=== PATIENT | male | born 1950 | race Caucasian/White ===

== ENCOUNTER → 2018-08-02 08:00 | Outpatient (CLI) | payer OTHER, SELFPAY ==
[2018-08-02 09:01] LABS: Add Manual Diff / Slide Review NO; Basophils Percent Auto 0.7 % (0-2); Eosinophils Percent Auto 1.5 % (2-4); Hematocrit 35.1 % (41-53); Hemoglobin 12.5 g/dL (13.5-17.5); Lymphocytes Percent Auto 10.6 % (25-40); Mean Corpuscular HGB Conc 35.6 % (30-36); Mean Corpuscular Hemoglobin 40.1 PG (26-34); Mean Corpuscular Volume 112.6 fL (80-100); Monocytes Percent Auto 5.3 % (3-14); Neutrophils Absolute Auto 4700 /uL (3000-5900); Neutrophils Percent Auto 81.9 % (50-75); Platelet Count 182 X10^3/uL (150-400); Red Blood Cell Count 3.12 X10^6/uL (4.5-5.9); White Blood Cell Count 5.7 X10^3/uL (4.5-11.0)
[2018-08-02 09:16] LABS: Anisocytosis 2+
[2018-08-02 09:22] LABS: Hemoglobin A1C% w Est Avg Glu 6.1 % (4.0-6.0)
[2018-08-02 09:52] LABS: Alanine Aminotransferase 31 IU/L (21-72); Albumin 4.4 g/dL (3.5-5.0); Albumin Globulin Ratio 1.4 (1.0-2.8); Alkaline Phosphatase 66 U/L (38-126); Aspartate Aminotransferase 26 IU/L (17-59); BUN Creatinine Ratio 32.5 (6-22); Bilirubin Total 0.6 mg/dL (0.2-1.3); Blood Urea Nitrogen 39 mg/dL (9-20); Calcium 9.5 mg/dL (8.4-10.2); Carbon Dioxide 32 mmol/L (22-32); Chloride 98 mmol/L (98-107); Cholesterol 154 mg/dL (140-199); Estimated Glomerular Filt Rate > 60.0 mL/min (>60); Globulin 3.2 g/dL (1.7-4.1); Glucose 112 mg/dL (80-110); HDL Cholesterol 31 mg/dL (40-60); HEMOLYSIS < 15 (0-50); LDL Cholesterol Calculated 100 mg/dL (<100); Potassium 3.3 mmol/L (3.4-5.1); Sodium 145 mmol/L (137-145); Total Protein 7.6 g/dL (6.3-8.2); Triglycerides 114 mg/dL (35-150)
[2018-08-02 09:56] LABS: Creatinine Urine Random 95.6 mg/dL
[2018-08-02 10:00] LABS: Microalbumi Creatinin Ratio Ur 167.3 ug/mg CR (<30)
== END ==
PROVIDERS: PCP Internal Medicine; Visit Provider Internal Medicine
DX: M10.00 Idiopathic gout, unspecified site (principal); I10 Essential (primary) hypertension; E11.9 Type 2 diabetes mellitus without complications; E78.00 Pure hypercholesterolemia, unspecified
CPT/HCPCS: 36415; 80053; 80061; 82043; 82570; 83036; 83880; 85025

== ENCOUNTER 2018-10-18 22:17 | Emergency (ER) | payer OTHER, SELFPAY ==
[2018-10-18] VITALS (10 sets, daily range): BP systolic 83–113; BP diastolic 40–74; PULSE 73–78; RESP 13–18; TEMP 36.6; O2SAT 93–96; BMI 30.8
--- NOTE | 2018-10-18 22:21 | ED.GIBLEED ---
HPI - GI Bleed General Chief complaint: GI Bleed Stated complaint: GI BLEED Time Seen by Provider: 10/18/18 22:19 Source: patient Mode of arrival: EMS Limitations: no limitations History of Present Illness HPI Narrative: Patient is a 68-year-old male with a history of rectal cancer status post resection. This was many years ago. He is not currently undergoing chemotherapy. He states that during his last checkup he was cancer free he states that last night he went to go have a bowel movement which he states was relatively normal for him. Potentially was streaked with a little bit of blood. He states that he went back to bed and a little while later he got up because he had to go the bathroom and had an episode of very loose stools which he states was dark and also bright red. He states that a few minutes later he had another large bowel movement that was all bright red. No abdominal tenderness except for some cramping. Denies the use of anti-inflammatories. Denies the use of anticoagulants. Denies alcohol. Related Data Home Medications Medication Instructions Recorded Confirmed allopurinol 150 mg PO DAILY 10/18/18 10/18/18 amlodipine 10 mg PO DAILY 10/18/18 10/18/18 azathioprine 100 mg PO DAILY 10/18/18 10/18/18 carvedilol 25 mg PO BID 10/18/18 10/18/18 cetirizine 10 mg PO DAILY PRN 10/18/18 10/18/18 fluticasone 1 spray INTRANASAL DAILY PRN 10/18/18 10/18/18 furosemide 20 mg PO DAILY PRN 10/18/18 10/18/18 hydrochlorothiazide 25 mg PO DAILY 10/18/18 10/18/18 insulin NPH isoph U-100 human 16 units SUBCUT DAILY 10/18/18 10/18/18 [Humulin N NPH U-100 Insulin] lisinopril 40 mg PO DAILY 10/18/18 10/18/18 potassium chloride [K-Tab] 10 meq PO DAILY 10/18/18 10/18/18 prednisone 10 mg PO DAILY 10/18/18 10/18/18 tamsulosin 0.4 mg PO BID 10/18/18 10/18/18 Allergies Allergy/AdvReac Type Severity Reaction Status Date / Time fluorouracil Allergy Verified 10/19/18 00:08 Review of Systems Constitutional Reports fatigue, Denies fever(s) and Reports lethargy Cardiovascular Denies chest pain, Denies palpitations and Denies dyspnea Respiratory Denies dyspnea Gastrointestinal Gastrointestinal: Denies abdominal pain, Denies bloating, Reports change in stool character, Denies coffee ground emesis, Reports loose stools, Denies nausea and Denies vomiting Comments: Bright red blood per rectum Genitourinary Denies dysuria Musculoskeletal Denies myalgias and Denies arthralgias Integumentary/Breasts Denies rash Endocrine Reports fatigue and Denies palpitations Hematologic/Lymphatic Denies easy bleeding and Denies easy bruising PFSH Medical History Celiac disease (Acute) Congestive heart failure (Acute) Diabetes (Acute) Rectal cancer (Acute) Surgical History H/O colectomy (Acute) Social History lives independently: Yes Exam Initial Vital Signs Initial Vital Signs: Vital Signs Temperature 97.8 F 10/18/18 22:26 Pulse Rate 77 10/18/18 22:26 Respiratory Rate 16 10/18/18 22:26 Blood Pressure 113/74 10/18/18 22:26 Pulse Oximetry 96 10/18/18 22:26 Const General: cooperative, well developed, well groomed and No acute distress Orientation: alert, awake and oriented x3 HENMT Head: normal to inspection and normocephalic Resp Effort & Inspection: normal respiratory effort Auscultation: clear to auscultation bilaterally Cardio Rate: regular rate Rhythm: regular rhythm Pulses: radial pulses present GI Inspection: non-distended Palpation: soft, No firm and No tender Skin General: pallor Rashes: no rashes Other: Patient with for stages of a Mohs surgery to the top of his scalp Neuro General: alert, awake and oriented x3 Cognition: normal cognition Speech: speech normal Extrem General: normal to inspection and capillary refill normal Psych Appearance: grossly normal and well kempt Course Orders Ordered: ED Orders 10/18/18 22:00 Complete Blood Count AUTO DIFF Stat Comprehensive Metabolic Panel Stat Lipase Stat Packed Cells Stat Partial Thromboplastin Time Stat Prothrombin Time INR Stat Type and Screen Stat 10/18/18 22:34 CT abdomen pelvis w con Stat 10/18/18 23:47 Hemoglobin and Hematocrit Stat 10/19/18 01:30 Hemoglobin and Hematocrit Stat Lactate (Lactic Acid) Stat Sodium Chloride (Normal Saline 0.9%) 1,000 mls @ 125 mls/hr IV CONT PATO Last Infusion: 10/19/18 00:49 Dose: 125 mls/hr Infusion: 10/19/18 00:38 Dose: 0 mls/hr Admin: 10/18/18 23:08 Dose: 125 mls/hr Pantoprazole Sodium 80 mg/ (Sodium Chloride) 100 mls @ 10 mls/hr IV CONT PATO Last Infusion: 10/19/18 00:49 Dose: 8 mg/hr, 10 mls/hr Infusion: 10/19/18 00:38 Dose: 0 mg/hr, 0 mls/hr Admin: 10/18/18 23:26 Dose: 8 mg/hr, 10 mls/hr Discontinued Medications Pantoprazole Sodium 80 mg/ (Sodium Chloride) 100 mls @ 300 mls/hr IV NOW ONE Stop: 10/18/18 22:53 Last Infusion: 10/18/18 23:05 Dose: 0 mls/hr Admin: 10/18/18 23:00 Dose: 300 mls/hr Ondansetron HCl (Zofran) 4 mg IV NOW ONE Stop: 10/18/18 23:12 Last Admin: 10/18/18 23:11 Dose: 4 mg Ondansetron HCl (Zofran) 4 mg IV NOW ONE Stop: 10/19/18 02:14 Last Admin: 10/19/18 02:15 Dose: 4 mg Vital Signs - 8 hr 10/18/18 22:26 10/18/18 22:40 10/18/18 22:50 Temperature 97.8 F Pulse Rate 77 78 77 Respiratory Rate 16 16 16 Blood Pressure 113/74 Blood Pressure [Right Arm] 98/51 L 102/56 L Pulse Oximetry 96 96 94 10/18/18 23:00 10/18/18 23:20 10/18/18 23:30 Temperature Pulse Rate 75 75 74 Respiratory Rate 17 17 17 Blood Pressure Blood Pressure [Right Arm] 101/52 L 91/45 L 83/55 L Pulse Oximetry 93 94 93 10/18/18 23:32 10/18/18 23:36 10/18/18 23:40 Temperature Pulse Rate 73 75 73 Respiratory Rate 18 13 16 Blood Pressure Blood Pressure [Right Arm] 96/53 L 99/51 L 94/53 L Pulse Oximetry 96 96 96 10/18/18 23:51 10/19/18 00:00 10/19/18 00:05 Temperature 97.9 F Pulse Rate 75 72 73 Respiratory Rate 18 15 15 Blood Pressure 85/40 L Blood Pressure [Right Arm] 108/56 L 109/53 L Pulse Oximetry 96 96 10/19/18 00:09 10/19/18 00:10 10/19/18 00:15 Temperature 97.8 F Pulse Rate 70 71 72 Respiratory Rate 18 15 17 Blood Pressure 107/54 L Blood Pressure [Right Arm] 109/55 L 109/55 L Pulse Oximetry 96 99 10/19/18 00:20 10/19/18 00:25 10/19/18 00:30 Temperature Pulse Rate 72 69 69 Respiratory Rate 15 16 15 Blood Pressure Blood Pressure [Right Arm] 109/55 L 106/56 L 115/57 L Pulse Oximetry 97 97 97 10/19/18 00:50 10/19/18 01:00 10/19/18 01:10 Temperature Pulse Rate 73 73 71 Respiratory Rate 15 15 15 Blood Pressure Blood Pressure [Right Arm] 130/51 L 125/60 133/60 Pulse Oximetry 97 97 97 10/19/18 01:11 10/19/18 01:12 10/19/18 01:40 Temperature Pulse Rate 72 80 72 Respiratory Rate 15 13 Blood Pressure Blood Pressure [Right Arm] 133/60 133/60 113/61 Pulse Oximetry 98 96 94 10/19/18 02:00 10/19/18 02:20 Temperature Pulse Rate 73 67 Respiratory Rate Blood Pressure Blood Pressure [Right Arm] 118/60 123/64 Pulse Oximetry 94 92 MDM - GI Bleed Lab Data Attestation: I reviewed the patient's lab results. Result diagrams: 10/19/18 01:30 10/18/18 22:00 Lab Results 10/18/18 10/18/18 10/18/18 Range/Units 22:00 22:00 22:00 WBC 8.0 (4.5-11.0) X10^3/uL RBC 2.81 L (4.5-5.9) X10^6/uL Hgb 11.5 L (13.5-17.5) g/dL Hct 33.1 L (41-53) % MCV 117.8 H (80-100) fL MCH 40.9 H (26-34) PG MCHC 34.8 (30-36) % RDW 15.2 H (11.6-14.8) % Plt Count 188 (150-400) X10^3/uL Neut % (Auto) 77.0 H (50-75) % Lymph % (Auto) 16.0 L (25-40) % Larue % (Auto) 5.3 (3-14) % Eos % (Auto) 0.9 L (2-4) % Baso % (Auto) 0.8 (0-2) % Neut # (Auto) 6200 (4240-7099) /uL Lymph # (Auto) 1300 (3413-1699) /uL Larue # (Auto) 400 (0-900) /uL Eos # (Auto) 100 (0-450) /uL Baso # (Auto) 100 (0-100) /uL RBC Morphology See below Anisocytosis 1+ H Macrocytosis 2+ H PT 12.4 (10.1-12.7) SECONDS INR 1.1 (0.9-1.3) APTT 26 L (26.4-36.2) SECONDS Sodium 143 (137-145) mmol/L Potassium 3.4 (3.4-5.1) mmol/L Chloride 100 (98-107) mmol/L Carbon Dioxide 28 (22-32) mmol/L BUN 37 H (9-20) mg/dL Creatinine 1.80 H (0.66-1.25) mg/dL Estimated GFR 37.7 L (>60) mL/min BUN/Creatinine Ratio 20.6 (6-22) Glucose 139 H (80-110) mg/dL Lactate (0.7-2.1) mmol/L Calcium 9.1 (8.4-10.2) mg/dL Total Bilirubin 0.5 (0.2-1.3) mg/dL AST 26 (17-59) IU/L ALT 26 (21-72) IU/L Alkaline Phosphatase 60 (38-126) U/L Total Protein 7.4 (6.3-8.2) g/dL Albumin 4.1 (3.5-5.0) g/dL Globulin 3.3 (1.7-4.1) g/dL Albumin/Globulin Ratio 1.2 (1.0-2.8) Lipase 93 (23-300) U/L Blood Type Antibody Screen Crossmatch 10/18/18 10/18/18 10/19/18 Range/Units 22:00 23:47 01:30 WBC (4.5-11.0) X10^3/uL RBC (4.5-5.9) X10^6/uL Hgb 9.6 L 9.8 L (13.5-17.5) g/dL Hct 27.8 L 27.7 L (41-53) % MCV (80-100) fL MCH (26-34) PG MCHC (30-36) % RDW (11.6-14.8) % Plt Count (150-400) X10^3/uL Neut % (Auto) (50-75) % Lymph % (Auto) (25-40) % Larue % (Auto) (3-14) % Eos % (Auto) (2-4) % Baso % (Auto) (0-2) % Neut # (Auto) (7669-8585) /uL Lymph # (Auto) (7974-3388) /uL Larue # (Auto) (0-900) /uL Eos # (Auto) (0-450) /uL Baso # (Auto) (0-100) /uL RBC Morphology Anisocytosis Macrocytosis PT (10.1-12.7) SECONDS INR (0.9-1.3) APTT (26.4-36.2) SECONDS Sodium (137-145) mmol/L Potassium (3.4-5.1) mmol/L Chloride (98-107) mmol/L Carbon Dioxide (22-32) mmol/L BUN (9-20) mg/dL Creatinine (0.66-1.25) mg/dL Estimated GFR (>60) mL/min BUN/Creatinine Ratio (6-22) Glucose (80-110) mg/dL Lactate (0.7-2.1) mmol/L Calcium (8.4-10.2) mg/dL Total Bilirubin (0.2-1.3) mg/dL AST (17-59) IU/L ALT (21-72) IU/L Alkaline Phosphatase (38-126) U/L Total Protein (6.3-8.2) g/dL Albumin (3.5-5.0) g/dL Globulin (1.7-4.1) g/dL Albumin/Globulin Ratio (1.0-2.8) Lipase (23-300) U/L Blood Type O Positive Antibody Screen Negative Crossmatch See Detail 10/19/18 Range/Units 01:30 WBC (4.5-11.0) X10^3/uL RBC (4.5-5.9) X10^6/uL Hgb (13.5-17.5) g/dL Hct (41-53) % MCV (80-100) fL MCH (26-34) PG MCHC (30-36) % RDW (11.6-14.8) % Plt Count (150-400) X10^3/uL Neut % (Auto) (50-75) % Lymph % (Auto) (25-40) % Larue % (Auto) (3-14) % Eos % (Auto) (2-4) % Baso % (Auto) (0-2) % Neut # (Auto) (6856-2218) /uL Lymph # (Auto) (2583-2147) /uL Larue # (Auto) (0-900) /uL Eos # (Auto) (0-450) /uL Baso # (Auto) (0-100) /uL RBC Morphology Anisocytosis Macrocytosis PT (10.1-12.7) SECONDS INR (0.9-1.3) APTT (26.4-36.2) SECONDS Sodium (137-145) mmol/L Potassium (3.4-5.1) mmol/L Chloride (98-107) mmol/L Carbon Dioxide (22-32) mmol/L BUN (9-20) mg/dL Creatinine (0.66-1.25) mg/dL Estimated GFR (>60) mL/min BUN/Creatinine Ratio (6-22) Glucose (80-110) mg/dL Lactate 1.7 (0.7-2.1) mmol/L Calcium (8.4-10.2) mg/dL Total Bilirubin (0.2-1.3) mg/dL AST (17-59) IU/L ALT (21-72) IU/L Alkaline Phosphatase (38-126) U/L Total Protein (6.3-8.2) g/dL Albumin (3.5-5.0) g/dL Globulin (1.7-4.1) g/dL Albumin/Globulin Ratio (1.0-2.8) Lipase (23-300) U/L Blood Type Antibody Screen Crossmatch Imaging Data CT scan - abdomen: Radiologist's impression: 1 cm cystic density in the proximal body of the pancreas axial image 35, 4 mm cystic density in the head of the pancreas axial image 38. Differential includes small pancreatic pseudocyst versus pancreatic duct diverticulum but cystic neoplasm is not excluded. No pancreatic duct dilation. No surrounding inflammation. Mild diffuse wall thickening of urinary bladder could be due to a small Sizer work hypertrophy secondary to mild prostatic enlargement a cystitis or tumor also in the differential. These compare with urinalysis. Mild collapse worse is mild wall thickening proximal half of the transverse colon. No surrounding inflammation. Differential is collapsed 1st colitis. Mild wall thickening small bowel in the left abdomen which can be seen with enteritis for ischemia. No peripheral portal venous or mesenteric venous gas. Normal mesenteric arteries. Prior small-bowel surgery of distal ileum. Moderate gastric distention with large air-fluid level MDM Narrative Medical decision making narrative: Is reported by EMS that they are initial blood pressure had a systolic in the 70s. They started an IV and fluids. Upon arrival here patient had a systolic blood pressure greater than 110. He stated that he did not feel very well. I did not perform a rectal exam because he had obvious bright red blood. We did discuss the possibility of blood transfusions. He has had significant abdominal surgeries in the past secondary to his rectal cancer. While waiting for him to drink the contrast for his CT scan he became hypotensive initially with a systolic blood pressure in the mid 90s with subsequent systolic blood pressure in the 80s. He was laid flat which brought his blood pressure greater than 110 again. He also states that he was not feeling well. 1 units of typed and crossmatched PRBCs were started. Repeat H&H shows that his hemoglobin hematocrit has dropped since arrival here to the ER. He has not had a bowel movement up to this point in the emergency department. H&H remained stable after just the 1 unit. I discussed the case with Dr. Amin with General surgery here who states that if the patient was that unstable needed blood transfusion he would most likely benefit from a facility that has GI capability of potential interventional radiology. We contacted [facility] and I discussed the case with Dr Narayan. He recommended starting the 2nd unit of blood. He found an accepting physician of Dr. Farley at [facility]. Currently patient is stable for transport and does require higher level care. I discussed the transfer with the patient and his her bedside and they both expressed understanding and agreement plan. Critical Care Time Critical Care Time: Yes Total Critical Care Time: 35 Attestation: The high probability of a clinically significant, sudden or life threatening deterioration of the hemodynamic, GI system(s) required my full and direct attention, intervention and personal management. The aggregate critical care time was 35 minutes. This time is in addition to time spent performing reported procedures but includes the following: [] Data Review and interpretation [] Patient assessment and monitoring of vital signs [] Documentation [] Medication orders and management Discharge Plan Departure Patient Disposition: [facility] Clinical Impression: Lower gastrointestinal hemorrhage, Anemia Prescriptions: No Action carvedilol 25 mg Tablet 25 mg PO BID RF: 0 prednisone 10 mg Tablet 10 mg PO DAILY RF: 0 cetirizine 10 mg Tablet 10 mg PO DAILY PRN (Reason: Allergy Symptoms) RF: 0 lisinopril 20 mg Tablet 40 mg PO DAILY RF: 0 potassium chloride [K-Tab] 10 mEq Tablet Extended Release 10 meq PO DAILY RF: 0 amlodipine 5 mg Tablet 10 mg PO DAILY RF: 0 allopurinol 100 mg Tablet 150 mg PO DAILY RF: 0 tamsulosin 0.4 mg Capsule 0.4 mg PO BID RF: 0 insulin NPH isoph U-100 human [Humulin N NPH U-100 Insulin] 100 unit/mL Suspension 16 units subcut DAILY RF: 0 hydrochlorothiazide 25 mg Tablet 25 mg PO DAILY RF: 0 furosemide 20 mg Tablet 20 mg PO DAILY PRN (Reason: Weight above 244#) RF: 0 fluticasone 50 mcg/actuation [place],Suspension 1 spray INTRANASAL DAILY PRN (Reason: Allergy Symptoms) RF: 0 azathioprine 100 mg Tablet 100 mg PO DAILY RF: 0
--- NOTE | 2018-10-18 22:34 | DI.CT.S_ITS ---
PROCEDURE: CT ABDOMEN PELVIS W CON INDICATIONS: Gastrointestinal bleed TECHNIQUE: After the administration of oral and intravenous contrast, 5 mm thick sections acquired from the diaphragms to the symphysis. 5 mm thick coronal and sagittal reformats were performed. For radiation dose reduction, the following was used: automated exposure control, adjustment of mA and/or kV according to patient size. COMPARISON: None. FINDINGS: Image quality: Excellent. ABDOMEN: Lung bases: No acute consolidation. Scattered subsegmental atelectasis and/or scarring. Heart is mildly enlarged. Distal esophageal wall thickening, nonspecific possibly infectious or inflammatory esophagitis versus statistically less likely neoplasm. Further evaluation with endoscopy could be performed as clinically warranted. Solid organs: Liver is normal in size and enhancement. Gallbladder surgically absent. Biliary system is non-dilated. 1 cm cystic lesion involving the body of the pancreas with simple appearance although technically nonspecific. No peripancreatic fat stranding. Spleen is normal in size and enhancement. No adrenal nodules. Kidneys are normal in size and enhancement, without hydronephrosis. Bilateral presumed simple cysts although some of these are too small to characterize and some demonstrate slight increased attenuation greater than water (for example at the inferior pole of the right kidney). Continued monitoring with renal ultrasound could be performed as clinically warranted. Peritoneum and bowel: There is questionable left abdominal small bowel wall thickening although limited evaluation given decompressed status. There is also questionable circumferential wall thickening involving the transverse colon (for example image 49 series 2) although this segment of bowel is also collapsed. Nonetheless findings could reflect early or mild enterocolitis. No evidence of portal venous or mesenteric venous gas. The mesenteric vessels appear contrast opacified and grossly patent. No intestinal pneumatosis is seen. Surgical bowel anastomosis at the rectosigmoid junction. No free fluid or air. The appendix is within normal limits Nodes and vessels: No retroperitoneal or mesenteric adenopathy by size criteria are prominent shotty subcentimeter lymph nodes seen at the aortic bifurcation on image 69. Aorta and inferior vena cava are normal in caliber. Miscellaneous: No ventral hernias. PELVIS: Genitourinary: Circumferential bladder wall thickening which is technically indeterminate. Miscellaneous: No inguinal hernias or adenopathy. Bones: No suspicious bony lesions. No vertebral body compression fractures. IMPRESSION: Questionable/mild left abdominal small bowel, and transverse colonic wall thickening raising the possibility of early or mild enterocolitis. Please correlate clinically. No bowel obstruction. 1 cm cystic lesion involving body of pancreas, differential includes pseudocyst versus diverticulum, versus cystic neoplasm. Given the absence of prior studies this finding is technically age indeterminate and recommend followup in 2 years with pancreatic protocol MRI with and without contrast, per consensus management guidelines. Age-indeterminate circumferential bladder wall thickening which could reflect acute or chronic cystitis, versus statistically less likely neoplasm. Please correlate with urinalysis data and if necessary, cystoscopy could be considered. Multiple presumed renal cysts although some of these are technically indeterminate and minimally hyperdense. Continued monitoring with renal ultrasound could be performed to document long-term stability. Dictated by: Joe Harmon M.D. on 10/19/2018 at 7:22 Approved by: Joe Harmon M.D. on 10/19/2018 at 7:36
[2018-10-18 22:35] LABS: Add Manual Diff / Slide Review NO; Basophils Absolute Auto 100 /uL (0-100); Basophils Percent Auto 0.8 % (0-2); Eosinophils Absolute Auto 100 /uL (0-450); Eosinophils Percent Auto 0.9 % (2-4); Hematocrit 33.1 % (41-53); Hemoglobin 11.5 g/dL (13.5-17.5); Lymphocytes Absolute Auto 1300 /uL (1100-4500); Mean Corpuscular HGB Conc 34.8 % (30-36); Mean Corpuscular Hemoglobin 40.9 PG (26-34); Mean Corpuscular Volume 117.8 fL (80-100); Monocytes Absolute Auto 400 /uL (0-900); Monocytes Percent Auto 5.3 % (3-14); Neutrophils Absolute Auto 6200 /uL (1500-7000); Platelet Count 188 X10^3/uL (150-400); Red Blood Cell Count 2.81 X10^6/uL (4.5-5.9); Red Cell Distribution Width 15.2 % (11.6-14.8)
[2018-10-18 22:42] LABS: INR 1.1 (0.9-1.3); Prothrombin Time 12.4 SECONDS (10.1-12.7)
[2018-10-18 22:44] LABS: PTT Partial Thromboplastin Tim 26 SECONDS (26.4-36.2)
[2018-10-18 22:45] LABS: Blood Urea Nitrogen 37 mg/dL (9-20); Carbon Dioxide 28 mmol/L (22-32); Chloride 100 mmol/L (98-107); Potassium 3.4 mmol/L (3.4-5.1); Sodium 143 mmol/L (137-145)
[2018-10-18 22:46] LABS: Alanine Aminotransferase 26 IU/L (21-72); Albumin 4.1 g/dL (3.5-5.0); Albumin Globulin Ratio 1.2 (1.0-2.8); Alkaline Phosphatase 60 U/L (38-126); Aspartate Aminotransferase 26 IU/L (17-59); BUN Creatinine Ratio 20.6 (6-22); Bilirubin Total 0.5 mg/dL (0.2-1.3); Calcium 9.1 mg/dL (8.4-10.2); Estimated Glomerular Filt Rate 37.7 mL/min (>60); Globulin 3.3 g/dL (1.7-4.1); Glucose 139 mg/dL (80-110); HEMOLYSIS < 15 (0-50); Lipase 93 U/L (23-300); Total Protein 7.4 g/dL (6.3-8.2)
[2018-10-18 22:52] LABS: Macrocytosis 2+
[2018-10-18 22:53] LABS: Anisocytosis 1+
[2018-10-18] MEDS: PANTOPRAZOLE 80 MG in SODIUM CHLORIDE 0.9% 100 ML 300 ML IV (23:00)
[2018-10-18] MEDS: SODIUM CHLORIDE 0.9% 1,000 ML 125 ML IV (23:08)
[2018-10-18] MEDS: ONDANSETRON 4 MG/2 ML INJ IV (23:11)
[2018-10-18] MEDS: PANTOPRAZOLE 80 MG in SODIUM CHLORIDE 0.9% 100 ML 10 ML IV (23:26)
[2018-10-18 23:56] LABS: Hematocrit 27.8 % (41-53); Hemoglobin 9.6 g/dL (13.5-17.5)
[2018-10-19] VITALS (20 sets, daily range): BP systolic 106–133; BP diastolic 40–64; PULSE 65–80; RESP 12–18; TEMP 36.5–36.6; O2SAT 92–99
[2018-10-19 01:43] LABS: Hematocrit 27.7 % (41-53); Hemoglobin 9.8 g/dL (13.5-17.5)
[2018-10-19 01:49] LABS: Lactate (Lactic Acid) 1.7 mmol/L (0.7-2.1)
[2018-10-19] MEDS: ONDANSETRON 4 MG/2 ML INJ IV (02:15)
--- NOTE | 2018-10-19 03:53 | PC.NURSE ---
patient transported with blood transfusing. provider okayed.
== END 2018-10-19 03:50 | disposition short-term general hospital (02) ==
PROVIDERS: Emergency Provider Emergency Medicine; PCP Internal Medicine
DX: K92.2 Gastrointestinal hemorrhage, unspecified (principal); D64.9 Anemia, unspecified
CPT/HCPCS: 36415; 36430; 51701; 51705; 74177; 80053; 83605; 83690; 85014; 85018; 85025; 85610; 85730; 86850; 86900; 86901; 96365; 96366; 96375; 96376; 99285; 99291; 99292; P9016; C9113; J2405; Q9967

== ENCOUNTER → 2018-11-22 11:08 | Outpatient (CLI) | payer OTHER, SELFPAY ==
[2018-11-22 11:51] LABS: Hemoglobin A1C% w Est Avg Glu 5.7 % (4.0-6.0)
[2018-11-22 11:54] LABS: HEMOLYSIS < 15 (0-50); Iron 50 ug/dL (49-181)
[2018-11-22 11:55] LABS: BUN Creatinine Ratio 20.8 (6-22); Blood Urea Nitrogen 27 mg/dL (9-20); Calcium 9.2 mg/dL (8.4-10.2); Carbon Dioxide 31 mmol/L (22-32); Chloride 98 mmol/L (98-107); Estimated Glomerular Filt Rate 54.9 mL/min (>60); Glucose 217 mg/dL (80-110); HEMOLYSIS < 15 (0-50); Potassium 3.8 mmol/L (3.4-5.1); Sodium 140 mmol/L (137-145)
[2018-11-22 12:06] LABS: Percent Iron Saturation 17 % (20-50); Total Iron Binding Capacity 296 ug/dL (261-462); Transferrin 208 mg/dL (206-381)
[2018-11-22 12:18] LABS: Add Manual Diff / Slide Review NO; Basophils Absolute Auto 0 /uL (0-100); Basophils Percent Auto 0.2 % (0-2); Eosinophils Absolute Auto 0 /uL (0-450); Eosinophils Percent Auto 0.4 % (2-4); Hematocrit 33.3 % (41-53); Hemoglobin 11.4 g/dL (13.5-17.5); Lymphocytes Absolute Auto 300 /uL (1100-4500); Lymphocytes Percent Auto 5.1 % (25-40); Mean Corpuscular HGB Conc 34.3 % (30-36); Mean Corpuscular Hemoglobin 39.1 PG (26-34); Mean Corpuscular Volume 113.9 fL (80-100); Monocytes Absolute Auto 200 /uL (0-900); Monocytes Percent Auto 4.6 % (3-14); Neutrophils Absolute Auto 4500 /uL (1500-7000); Neutrophils Percent Auto 89.7 % (50-75); Platelet Count 248 X10^3/uL (150-400); Red Blood Cell Count 2.93 X10^6/uL (4.5-5.9); Red Cell Distribution Width 18.2 % (11.6-14.8)
[2018-11-22 12:44] LABS: Vitamin B12 704 pg/mL (239-931)
[2018-11-22 13:06] LABS: Anisocytosis 1+; Macrocytosis 2+
== END ==
PROVIDERS: PCP Internal Medicine; Visit Provider Internal Medicine
DX: D64.9 Anemia, unspecified (principal); E11.9 Type 2 diabetes mellitus without complications
CPT/HCPCS: 36415; 80048; 82607; 83036; 83540; 83550; 85025

== ENCOUNTER 2018-11-24 05:58 | Emergency (ER) | payer OTHER, SELFPAY ==
[2018-11-24 06:00] VITALS: BP 174/71; PULSE 78; RESP 18; TEMP 37.2; O2SAT 96
--- NOTE | 2018-11-24 06:19 | DI.RAD.S_ITS ---
PROCEDURE: XR ACUTE ABDOMEN SERIES INDICATIONS: Abdominal pain TECHNIQUE: One view chest and two views of the abdomen were acquired. COMPARISON: None. FINDINGS: Surgical changes and devices: There is a cardiac pacemaker. Surgical clips in the right upper quadrant and midabdomen. Chest: Lungs are clear. Heart size is normal. No pleural effusions. No pneumoperitoneum. Abdomen: Bowel gas pattern is normal. No suspicious calcifications. Visualized solid organ contours appear normal. Bones: No suspicious bony lesions. IMPRESSION: Normal bowel gas pattern. Dictated by: Alirio Adams M.D. on 11/24/2018 at 8:20 Approved by: Alirio Adams M.D. on 11/24/2018 at 8:23
[2018-11-24] MEDS: PANTOPRAZOLE 40 MG VIAL IV (06:21)
[2018-11-24] MEDS: SODIUM CHLORIDE 0.9% 1,000 ML 1000 ML IV (06:21)
--- NOTE | 2018-11-24 06:22 | ED.NAVMDI ---
HPI - Nausea/Vomiting/Diarrhea <Dwayne Cheng, DO - Last Filed: 11/25/18 21:04> General Chief complaint: Nausea/Vomiting/Diarrhea Stated complaint: nausea/vomiting, possible flu Time Seen by Provider: 11/24/18 06:00 Source: patient, family and EMS Mode of arrival: EMS Limitations: no limitations History of Present Illness HPI Narrative: 68-year-old male nonsmoker with extensive medical history including rectal cancer and diabetes presents with significant nausea. He had significant episode of nausea yesterday morning which resolved after 45 min nap. He went throughout the course of the day and felt completely fine. This morning he awoke again with terrible nausea and multiple episodes of vomiting. He is not dizzy nor weak or lightheaded. He denies fever or chills. He has had no runny nose, sore throat or cough. He denies any bad food or contact with ill persons. He denies any change in his bowel or urinary habits. He denies any recent dietary change. He was brought by EMS and had been administered Zofran 8 mg p.o. prior to his arrival MD complaint: nausea and vomiting Onset (ago): hour(s) Description of Vomiting: food contents and watery Description of Diarrhea: none Associated Abdominal Pain: No Relieving factors: none Exacerbating factors: none Associated symptoms: weakness Related Data Home Medications Medication Instructions Recorded Confirmed allopurinol 150 mg PO DAILY 10/18/18 11/24/18 amlodipine 10 mg PO DAILY 10/18/18 11/24/18 carvedilol 25 mg PO BID 10/18/18 11/24/18 cetirizine 10 mg PO DAILY PRN 10/18/18 11/24/18 fluticasone 1 spray INTRANASAL DAILY PRN 10/18/18 11/24/18 furosemide 20 mg PO DAILY PRN 10/18/18 11/24/18 hydrochlorothiazide 25 mg PO DAILY 10/18/18 11/24/18 insulin NPH isoph U-100 human 16 units SUBCUT DAILY 10/18/18 11/24/18 [Humulin N NPH U-100 Insulin] lisinopril 40 mg PO DAILY 10/18/18 11/24/18 potassium chloride [K-Tab] 20 meq PO DAILY 10/18/18 11/24/18 prednisone 10 mg PO [id number] 10/18/18 11/24/18 tamsulosin 0.4 mg PO BID 10/18/18 11/24/18 azathioprine 100 mg PO DAILY 11/24/18 11/24/18 cyanocobalamin (vitamin B-12) 1,000 mcg PO DAILY 11/24/18 11/24/18 [Vitamin B-12] ferrous gluconate 324 mg PO DAILY 11/24/18 11/24/18 magnesium oxide 400 mg PO BID 11/24/18 11/24/18 Previous Rx's Medication Instructions Recorded hydrocodone-acetaminophen [[place]] 1 tab PO Q4-6H PRN #7 tab 11/24/18 metoclopramide HCl [Reglan] 10 mg PO Q6H PRN #10 tab 11/24/18 Allergies Allergy/AdvReac Type Severity Reaction Status Date / Time fluorouracil Allergy Verified 10/19/18 00:08 Review of Systems <Dwayne Anand DO - Last Filed: 11/25/18 21:04> Constitutional Reports chills, Denies fever(s), Denies lethargy and Reports weakness Eyes Denies change in vision, Denies eye discharge, Denies irritation and Denies loss of vision ENT Ears, Nose, Mouth, and Throat: Denies change in voice, Denies neck pain and Denies sore throat Cardiovascular Denies chest pain, Denies irregular heart rhythm, Denies lightheadedness, Denies palpitations, Denies dyspnea, Denies dyspnea on exertion and Denies orthopnea Respiratory Denies cough, Denies dyspnea, Denies dyspnea on exertion and Denies wheezing Gastrointestinal Gastrointestinal: Denies abdominal pain, Denies change in bowel habits, Denies diarrhea, Reports nausea and Reports vomiting Genitourinary Denies hematuria, Denies flank pain, Denies urinary incontinence and Denies urinary urgency Musculoskeletal Denies neck pain Integumentary/Breasts Denies pruritus, Denies erythema, Denies rash and Denies wounds Neurologic Denies confusion, Denies loss of vision and Reports weakness Psychiatric Denies anxiety, Denies confusion, Denies depression, Denies homicidal ideation and Denies suicidal ideation Endocrine Denies palpitations Hematologic/Lymphatic Denies easy bruising Allergic/Immunologic Denies wheezing PFSH <DO Tammi Aly Last Filed: 11/25/18 21:04> Medical History Celiac disease (Acute) Congestive heart failure (Acute) Diabetes (Acute) Rectal cancer (Acute) Surgical History H/O colectomy (Acute) Social History lives independently: Yes Social History lives independently: Yes Exam <Dwayne Anand DO - Last Filed: 11/25/18 21:04> Narrative Exam Narrative: GENERAL: 68-year-old male appears stated age, holding an emesis basin obviously feels unwell HEAD: Atraumatic. Normocephalic. No temporal or scalp tenderness. EYES: Pupils equal round and reactive. Extraocular motions intact. No scleral icterus. No injection or drainage. ENT: Nose without bleeding, purulent drainage or septal hematoma. Throat without erythema, tonsillar hypertrophy or exudate. Uvula midline. Airway patent. NECK: Trachea midline. No JVD or lymphadenopathy. Supple, nontender, no meningeal signs. CARDIOVASCULAR: Regular rate and rhythm without murmurs, gallops, or rubs. RESPIRATORY: Clear to auscultation. Breath sounds equal bilaterally. No wheezes, rales, or rhonchi. GASTROINTESTINAL: Abdomen soft, non-tender, nondistended. No hepato-splenomegaly, or palpable masses. No guarding. EXTREMITIES: No clubbing, cyanosis, or edema. No joint tenderness, effusion, or edema noted. BACK: Nontender without deformity or crepitance. No flank tenderness. NEURO: AOx3. SKIN: No rash or erythema. Initial Vital Signs Initial Vital Signs: Vital Signs Temperature 98.9 F 11/24/18 06:00 Pulse Rate 78 11/24/18 06:00 Respiratory Rate 18 11/24/18 06:00 Blood Pressure 174/71 H 11/24/18 06:00 Pulse Oximetry 96 11/24/18 06:00 <Richy Casillas DO - Last Filed: 11/24/18 13:08> Initial Vital Signs Initial Vital Signs: Vital Signs Temperature 98.9 F 11/24/18 06:00 Pulse Rate 78 11/24/18 06:00 Respiratory Rate 18 11/24/18 06:00 Blood Pressure 174/71 H 11/24/18 06:00 Pulse Oximetry 96 11/24/18 06:00 Course <Dwayne Anand DO - Last Filed: 11/25/18 21:04> Orders Ordered: Discontinued Medications Hydrocodone Bitart/Acetaminophen ([place] 5/325) 1 tab PO NOW ONE Stop: 11/24/18 09:50 Last Admin: 11/24/18 10:24 Dose: 1 tab Sodium Chloride (Normal Saline 0.9%) 1,000 mls @ 1,000 mls/hr IV BOLUS ONE Stop: 11/24/18 07:17 Last Infusion: 11/24/18 09:43 Dose: 0 mls/hr Admin: 11/24/18 06:21 Dose: 1,000 mls/hr Metoclopramide HCl (Reglan) 10 mg IV NOW ONE Stop: 11/24/18 07:35 Last Admin: 11/24/18 07:40 Dose: 10 mg Pantoprazole Sodium (Protonix) 40 mg IV NOW ONE Stop: 11/24/18 06:19 Last Admin: 11/24/18 06:21 Dose: 40 mg Vital Signs - 8 hr 11/24/18 06:00 11/24/18 07:56 11/24/18 09:30 Temperature 98.9 F Pulse Rate 78 79 76 Respiratory Rate 18 12 19 Blood Pressure 174/71 H Blood Pressure [Left Arm] 152/61 H 170/69 H Pulse Oximetry 96 96 95 11/24/18 10:30 11/24/18 11:46 Temperature 98.4 F Pulse Rate 74 76 Respiratory Rate 19 Blood Pressure 173/77 H Blood Pressure [Left Arm] 176/85 H Pulse Oximetry 94 96 <Richy Casillas DO - Last Filed: 11/24/18 13:08> Orders Ordered: Discontinued Medications Hydrocodone Bitart/Acetaminophen ([place] 5/325) 1 tab PO NOW ONE Stop: 11/24/18 09:50 Last Admin: 11/24/18 10:24 Dose: 1 tab Sodium Chloride (Normal Saline 0.9%) 1,000 mls @ 1,000 mls/hr IV BOLUS ONE Stop: 11/24/18 07:17 Last Infusion: 11/24/18 09:43 Dose: 0 mls/hr Admin: 11/24/18 06:21 Dose: 1,000 mls/hr Metoclopramide HCl (Reglan) 10 mg IV NOW ONE Stop: 11/24/18 07:35 Last Admin: 11/24/18 07:40 Dose: 10 mg Pantoprazole Sodium (Protonix) 40 mg IV NOW ONE Stop: 11/24/18 06:19 Last Admin: 11/24/18 06:21 Dose: 40 mg Vital Signs - 8 hr 11/24/18 06:00 11/24/18 07:56 11/24/18 09:30 Temperature 98.9 F Pulse Rate 78 79 76 Respiratory Rate 18 12 19 Blood Pressure 174/71 H Blood Pressure [Left Arm] 152/61 H 170/69 H Pulse Oximetry 96 96 95 11/24/18 10:30 11/24/18 11:46 Temperature 98.4 F Pulse Rate 74 76 Respiratory Rate 19 Blood Pressure 173/77 H Blood Pressure [Left Arm] 176/85 H Pulse Oximetry 94 96 MDM - Nausea/Vomiting/Diarrhea <Dwayne Anand DO - Last Filed: 11/25/18 21:04> Lab Data Result diagrams: 11/24/18 06:15 11/24/18 06:15 Lab Results 11/24/18 11/24/18 11/24/18 Range/Units 06:15 06:15 06:15 WBC 7.3 (4.5-11.0) X10^3/uL RBC 3.23 L (4.5-5.9) X10^6/uL Hgb 12.6 L (13.5-17.5) g/dL Hct 36.6 L (41-53) % MCV 113.4 H (80-100) fL MCH 39.1 H (26-34) PG MCHC 34.5 (30-36) % RDW 18.6 H (11.6-14.8) % Plt Count 256 (150-400) X10^3/uL Neut % (Auto) 88.6 H (50-75) % Lymph % (Auto) 4.9 L (25-40) % [place] % (Auto) 5.2 (3-14) % Eos % (Auto) 1.1 L (2-4) % Baso % (Auto) 0.2 (0-2) % Neut # (Auto) 6500 (4190-9652) /uL Lymph # (Auto) 400 L (4068-7700) /uL [place] # (Auto) 400 (0-900) /uL Eos # (Auto) 100 (0-450) /uL Baso # (Auto) 0 (0-100) /uL RBC Morphology See below Anisocytosis 1+ H Macrocytosis 2+ H Sodium 141 (137-145) mmol/L Potassium 3.4 (3.4-5.1) mmol/L Chloride 97 L (98-107) mmol/L Carbon Dioxide 32 (22-32) mmol/L BUN 31 H (9-20) mg/dL Creatinine 1.30 H (0.66-1.25) mg/dL Estimated GFR 54.9 L (>60) mL/min BUN/Creatinine Ratio 23.8 H (6-22) Glucose 201 H (80-110) mg/dL Lactate (0.7-2.1) mmol/L Calcium 10.0 (8.4-10.2) mg/dL Total Bilirubin 0.8 (0.2-1.3) mg/dL AST 29 (17-59) IU/L ALT 31 (21-72) IU/L Alkaline Phosphatase 75 (38-126) U/L Troponin I 0.036 H (0.01-0.034) ng/mL Total Protein 8.6 H (6.3-8.2) g/dL Albumin 4.7 (3.5-5.0) g/dL Globulin 3.9 (1.7-4.1) g/dL Albumin/Globulin Ratio 1.2 (1.0-2.8) Procalcitonin 0.05 (<0.5) ng/mL Urine Color Urine Appearance Urine pH (4.5-8.0) Ur Specific [place] (1.000-1.035) Urine Protein (Negative) Urine Glucose (UA) (Negative) g/dL Urine Ketones (NEGATIVE) Urine Occult Blood (Negative) Urine Nitrate (Negative) Urine Bilirubin (NEGATIVE) Urine Urobilinogen (0.2) E.U./dL Ur Leukocyte Esterase (NEGATIVE) Urine RBC (0-5/HPF) Urine WBC (0-5/HPF) Ur Squamous Epith Cells Urine Bacteria (None) Ur Culture Indicated? Influenza A & B (PCR) (Negative) 11/24/18 11/24/18 11/24/18 Range/Units 06:15 06:15 08:30 WBC (4.5-11.0) X10^3/uL RBC (4.5-5.9) X10^6/uL Hgb (13.5-17.5) g/dL Hct (41-53) % MCV (80-100) fL MCH (26-34) PG MCHC (30-36) % RDW (11.6-14.8) % Plt Count (150-400) X10^3/uL Neut % (Auto) (50-75) % Lymph % (Auto) (25-40) % [place] % (Auto) (3-14) % Eos % (Auto) (2-4) % Baso % (Auto) (0-2) % Neut # (Auto) (2536-6214) /uL Lymph # (Auto) (9623-1283) /uL [place] # (Auto) (0-900) /uL Eos # (Auto) (0-450) /uL Baso # (Auto) (0-100) /uL RBC Morphology Anisocytosis Macrocytosis Sodium (137-145) mmol/L Potassium (3.4-5.1) mmol/L Chloride (98-107) mmol/L Carbon Dioxide (22-32) mmol/L BUN (9-20) mg/dL Creatinine (0.66-1.25) mg/dL Estimated GFR (>60) mL/min BUN/Creatinine Ratio (6-22) Glucose (80-110) mg/dL Lactate 2.1 (0.7-2.1) mmol/L Calcium (8.4-10.2) mg/dL Total Bilirubin (0.2-1.3) mg/dL AST (17-59) IU/L ALT (21-72) IU/L Alkaline Phosphatase (38-126) U/L Troponin I (0.01-0.034) ng/mL Total Protein (6.3-8.2) g/dL Albumin (3.5-5.0) g/dL Globulin (1.7-4.1) g/dL Albumin/Globulin Ratio (1.0-2.8) Procalcitonin (<0.5) ng/mL Urine Color Yellow Urine Appearance Sl cloudy Urine pH 7.0 (4.5-8.0) Ur Specific [place] 1.020 (1.000-1.035) Urine Protein 2+ H (Negative) Urine Glucose (UA) Negative (Negative) g/dL Urine Ketones Negative (NEGATIVE) Urine Occult Blood Trace-lysed (Negative) Urine Nitrate Negative (Negative) Urine Bilirubin Negative (NEGATIVE) Urine Urobilinogen 0.2 (0.2) E.U./dL Ur Leukocyte Esterase Negative (NEGATIVE) Urine RBC 0-1/hpf (0-5/HPF) Urine WBC 5-10/hpf H (0-5/HPF) Ur Squamous Epith Cells 0-1 /hpf Urine Bacteria Many (>30) H (None) Ur Culture Indicated? Specimen cultured Influenza A & B (PCR) Negative (Negative) Point of Care Testing Glucose POC 190 <Richy Casillas DO - Last Filed: 11/24/18 13:08> Lab Data Attestation: I reviewed the patient's lab results. Lab Results 11/24/18 11/24/18 11/24/18 Range/Units 06:15 06:15 06:15 WBC 7.3 (4.5-11.0) X10^3/uL RBC 3.23 L (4.5-5.9) X10^6/uL Hgb 12.6 L (13.5-17.5) g/dL Hct 36.6 L (41-53) % MCV 113.4 H (80-100) fL MCH 39.1 H (26-34) PG MCHC 34.5 (30-36) % RDW 18.6 H (11.6-14.8) % Plt Count 256 (150-400) X10^3/uL Neut % (Auto) 88.6 H (50-75) % Lymph % (Auto) 4.9 L (25-40) % [place] % (Auto) 5.2 (3-14) % Eos % (Auto) 1.1 L (2-4) % Baso % (Auto) 0.2 (0-2) % Neut # (Auto) 6500 (3220-0591) /uL Lymph # (Auto) 400 L (9597-3479) /uL [place] # (Auto) 400 (0-900) /uL Eos # (Auto) 100 (0-450) /uL Baso # (Auto) 0 (0-100) /uL RBC Morphology See below Anisocytosis 1+ H Macrocytosis 2+ H Sodium 141 (137-145) mmol/L Potassium 3.4 (3.4-5.1) mmol/L Chloride 97 L (98-107) mmol/L Carbon Dioxide 32 (22-32) mmol/L BUN 31 H (9-20) mg/dL Creatinine 1.30 H (0.66-1.25) mg/dL Estimated GFR 54.9 L (>60) mL/min BUN/Creatinine Ratio 23.8 H (6-22) Glucose 201 H (80-110) mg/dL Lactate (0.7-2.1) mmol/L Calcium 10.0 (8.4-10.2) mg/dL Total Bilirubin 0.8 (0.2-1.3) mg/dL AST 29 (17-59) IU/L ALT 31 (21-72) IU/L Alkaline Phosphatase 75 (38-126) U/L Troponin I 0.036 H (0.01-0.034) ng/mL Total Protein 8.6 H (6.3-8.2) g/dL Albumin 4.7 (3.5-5.0) g/dL Globulin 3.9 (1.7-4.1) g/dL Albumin/Globulin Ratio 1.2 (1.0-2.8) Procalcitonin 0.05 (<0.5) ng/mL Urine Color Urine Appearance Urine pH (4.5-8.0) Ur Specific [place] (1.000-1.035) Urine Protein (Negative) Urine Glucose (UA) (Negative) g/dL Urine Ketones (NEGATIVE) Urine Occult Blood (Negative) Urine Nitrate (Negative) Urine Bilirubin (NEGATIVE) Urine Urobilinogen (0.2) E.U./dL Ur Leukocyte Esterase (NEGATIVE) Urine RBC (0-5/HPF) Urine WBC (0-5/HPF) Ur Squamous Epith Cells Urine Bacteria (None) Ur Culture Indicated? Influenza A & B (PCR) (Negative) 11/24/18 11/24/18 11/24/18 Range/Units 06:15 06:15 08:30 WBC (4.5-11.0) X10^3/uL RBC (4.5-5.9) X10^6/uL Hgb (13.5-17.5) g/dL Hct (41-53) % MCV (80-100) fL MCH (26-34) PG MCHC (30-36) % RDW (11.6-14.8) % Plt Count (150-400) X10^3/uL Neut % (Auto) (50-75) % Lymph % (Auto) (25-40) % [place] % (Auto) (3-14) % Eos % (Auto) (2-4) % Baso % (Auto) (0-2) % Neut # (Auto) (7942-8892) /uL Lymph # (Auto) (5510-0552) /uL [place] # (Auto) (0-900) /uL Eos # (Auto) (0-450) /uL Baso # (Auto) (0-100) /uL RBC Morphology Anisocytosis Macrocytosis Sodium (137-145) mmol/L Potassium (3.4-5.1) mmol/L Chloride (98-107) mmol/L Carbon Dioxide (22-32) mmol/L BUN (9-20) mg/dL Creatinine (0.66-1.25) mg/dL Estimated GFR (>60) mL/min BUN/Creatinine Ratio (6-22) Glucose (80-110) mg/dL Lactate 2.1 (0.7-2.1) mmol/L Calcium (8.4-10.2) mg/dL Total Bilirubin (0.2-1.3) mg/dL AST (17-59) IU/L ALT (21-72) IU/L Alkaline Phosphatase (38-126) U/L Troponin I (0.01-0.034) ng/mL Total Protein (6.3-8.2) g/dL Albumin (3.5-5.0) g/dL Globulin (1.7-4.1) g/dL Albumin/Globulin Ratio (1.0-2.8) Procalcitonin (<0.5) ng/mL Urine Color Yellow Urine Appearance Sl cloudy Urine pH 7.0 (4.5-8.0) Ur Specific [place] 1.020 (1.000-1.035) Urine Protein 2+ H (Negative) Urine Glucose (UA) Negative (Negative) g/dL Urine Ketones Negative (NEGATIVE) Urine Occult Blood Trace-lysed (Negative) Urine Nitrate Negative (Negative) Urine Bilirubin Negative (NEGATIVE) Urine Urobilinogen 0.2 (0.2) E.U./dL Ur Leukocyte Esterase Negative (NEGATIVE) Urine RBC 0-1/hpf (0-5/HPF) Urine WBC 5-10/hpf H (0-5/HPF) Ur Squamous Epith Cells 0-1 /hpf Urine Bacteria Many (>30) H (None) Ur Culture Indicated? Specimen cultured Influenza A & B (PCR) Negative (Negative) Point of Care Testing Glucose POC [address] scan - abdomen: Radiologist's impression: [address] [address] [address] Scan Report Signed Patient: [facility]#: [id number] : 1950Acct:[id number] Age/Sex: 68 / MDate of Service: 11/24/18 Loc: ED Accession Number: [id number] Procedure: CT abdomen pelvis w con Ordering Provider: Richy Casillas D.O. PROCEDURE: CT ABDOMEN PELVIS W CON INDICATIONS: ABD pain and vomiting TECHNIQUE: After the administration of intravenous contrast, 5 mm thick sections acquired from the diaphragm to the symphysis. 5 mm coronal and sagittal reformats were acquired. For radiation dose reduction, the following was used: automated exposure control, adjustment of mA and/or kV according to patient size. COMPARISON: [facility], CT, CT ABDOMEN PELVIS W CON, 10/18/2018, 23:09. FINDINGS: Image quality: Excellent. ABDOMEN: Lung bases: Lung bases are clear. Heart size is mildly enlarged. Pacemaker leads are present. No pericardial effusion.. Solid organs: Liver is normal in size and enhancement. Gallbladder is surgically absent. Biliary system is non dilated. Pancreas enhances normally. 1.5 cm cyst in the ventral body of the pancreas. Spleen is normal in size and enhancement. No adrenal nodules. Mild to moderate bilateral hydronephrosis and prominence of the extrarenal pelves, right greater than left. Distally, the ureter is only in mildly dilated. No urinary calcifications are visible. Exophytic right renal cyst and cortical medullary left renal cyst. No solid renal mass. Urinary bladder is moderately distended. Peritoneum and bowel: Bowel loops demonstrate normal wall thickness and caliber. Occasional colonic diverticula. Normal amount of stool present. Normal appendix. Surgical changes of right hemicolectomy and probable low anterior resection.. There is a linear metallic density within the transverse colon measuring approximately 1.3 cm in length. No free fluid or air. Nodes and vessels: No retroperitoneal or mesenteric adenopathy by size criteria. Aorta and inferior vena cava are normal in size. Miscellaneous: No ventral hernias. PELVIS: Genitourinary: Bladder wall thickness is normal. Mild prostatomegaly. Miscellaneous: No inguinal hernias or adenopathy. Bones: No suspicious bony lesions. No vertebral body compression fractures. IMPRESSION: 1. No CT evidence of acute process. 2. Mild to moderate bilateral hydronephrosis is likely related to overdistention of the urinary bladder and vesicoureteral reflux. An area retention may be in part due to prostatomegaly. Recommend followup ultrasound after resolution of the patient's acute illness. 3. Ingested radiodense material, potentially foreign body, potentially medication in the transverse colon. No evidence of perforation. 4. Stable pancreatic cyst. 5. Surgical changes of cholecystectomy, right hemicolectomy, and low anterior resection. Dictated by: Alejandra Bacon M.D. on 11/24/2018 at 8:17 Approved by: Alejandra Bacon M.D. on 11/24/2018 at 8:29 X-ray abdomen: Radiologist's impression: PROCEDURE: XR ACUTE ABDOMEN SERIES INDICATIONS: Abdominal pain TECHNIQUE: One view chest and two views of the abdomen were acquired. COMPARISON: None. FINDINGS: Surgical changes and devices: There is a cardiac pacemaker. Surgical clips in the right upper quadrant and midabdomen. Chest: Lungs are clear. Heart size is normal. No pleural effusions. No pneumoperitoneum. Abdomen: Bowel gas pattern is normal. No suspicious calcifications. Visualized solid organ contours appear normal. Bones: No suspicious bony lesions. IMPRESSION: Normal bowel gas pattern. Dictated by: Alirio Adams M.D. on 11/24/2018 at 8:20 Approved by: Alirio Adams M.D. on 11/24/2018 at 8:23 ECG Data Attestation: I personally reviewed and interpreted this ECG as follows: Prior ECG tracings: not available for review Interpretation: Ventricular paced Rate is [address] changes concerning for ST-elevation [place] MDM Narrative Medical decision making narrative: Received turned over from night provider. Performed my own history and physical exam. Reviewed patient's chart. CT scans unremarkable. Patient is having no chest pain. Ventricularly paced on his EKG. Has a benign abdominal exam. Had an improvement in his vomiting and a slight improvement in the nausea with the IV Reglan. He was able to tolerate oral intake to include an oral pain medication. He was again reminded to follow up with his primary doctor regarding the incidental pancreatic finding on his CT scan from his last visit. Will hold on further workup for now. Low suspicion for ACS. Do not feel he has any anginal equivalents he was given return precautions. Both he and his expressed understanding and agreement with plan. Discharge Plan Departure Patient Disposition: Home Clinical Impression: Nausea & vomiting Qualifiers: Vomiting type: unspecified Vomiting Intractability: unspecified Qualified Code(s): R11.2 - Nausea with vomiting, unspecified Discharge Date/Time: 11/24/18 11:15 Interventions: ED Discharge Assessment Last Done: 11/24/18 11:46 Instructions: Nausea (Alternative Therapy), Nausea and Vomiting-Adult Activity Restrictions/Additional Instructions: Take the medications as needed. Make sure your drinking small amounts of fluid over longer periods of time. Return to the emergency department for any new or worsening symptoms Prescriptions: New hydrocodone-acetaminophen [[place]] 5-325 mg tablet 1 tab PO Q4-6H PRN (Reason: pain) Qty: 7 RF: 0 metoclopramide HCl [Reglan] 10 mg tablet 10 mg PO Q6H PRN (Reason: nausea and vomiting) Qty: 10 RF: 0 No Action carvedilol 25 mg Tablet 25 mg PO BID RF: 0 prednisone 10 mg Tablet 10 mg PO [id number] RF: 0 cetirizine 10 mg Tablet 10 mg PO DAILY PRN (Reason: Allergy Symptoms) RF: 0 lisinopril 20 mg Tablet 40 mg PO DAILY RF: 0 potassium chloride [K-Tab] 10 mEq Tablet Extended Release 20 meq PO DAILY RF: 0 amlodipine 5 mg Tablet 10 mg PO DAILY RF: 0 allopurinol 100 mg Tablet 150 mg PO DAILY RF: 0 tamsulosin 0.4 mg Capsule 0.4 mg PO BID RF: 0 Humulin N NPH U-100 Insulin 100 unit/mL Suspension 16 units subcut DAILY RF: 0 hydrochlorothiazide 25 mg Tablet 25 mg PO DAILY RF: 0 furosemide 20 mg Tablet 20 mg PO DAILY PRN (Reason: Weight above 244#) RF: 0 fluticasone 50 mcg/actuation [place],Suspension 1 spray INTRANASAL DAILY PRN (Reason: Allergy Symptoms) RF: 0 cyanocobalamin (vitamin B-12) [Vitamin B-12] 1,000 mcg tablet 1,000 mcg PO DAILY RF: 0 azathioprine 50 mg Tablet 100 mg PO DAILY RF: 0 magnesium oxide 400 mg (241.3 mg magnesium) tablet 400 mg PO BID RF: 0 ferrous gluconate 324 mg (38 mg iron) tablet 324 mg PO DAILY RF: 0 Referrals: Joel Solares MD [Primary Care Provider] -
[2018-11-24 06:32] LABS: Basophils Absolute Auto 0 /uL (0-100); Basophils Percent Auto 0.2 % (0-2); Eosinophils Absolute Auto 100 /uL (0-450); Eosinophils Percent Auto 1.1 % (2-4); Hematocrit 36.6 % (41-53); Hemoglobin 12.6 g/dL (13.5-17.5); Lymphocytes Absolute Auto 400 /uL (1100-4500); Lymphocytes Percent Auto 4.9 % (25-40); Mean Corpuscular HGB Conc 34.5 % (30-36); Mean Corpuscular Hemoglobin 39.1 PG (26-34); Mean Corpuscular Volume 113.4 fL (80-100); Monocytes Absolute Auto 400 /uL (0-900); Monocytes Percent Auto 5.2 % (3-14); Neutrophils Absolute Auto 6500 /uL (1500-7000); Neutrophils Percent Auto 88.6 % (50-75); Platelet Count 256 X10^3/uL (150-400); Red Blood Cell Count 3.23 X10^6/uL (4.5-5.9); Red Cell Distribution Width 18.6 % (11.6-14.8); White Blood Cell Count 7.3 X10^3/uL (4.5-11.0)
[2018-11-24 06:35] LABS: Add Manual Diff / Slide Review SLIDE REVIEW
[2018-11-24 06:37] LABS: Lactate (Lactic Acid) 2.1 mmol/L (0.7-2.1)
[2018-11-24 06:38] LABS: Alanine Aminotransferase 31 IU/L (21-72); Albumin 4.7 g/dL (3.5-5.0); Albumin Globulin Ratio 1.2 (1.0-2.8); Alkaline Phosphatase 75 U/L (38-126); Aspartate Aminotransferase 29 IU/L (17-59); BUN Creatinine Ratio 23.8 (6-22); Bilirubin Total 0.8 mg/dL (0.2-1.3); Blood Urea Nitrogen 31 mg/dL (9-20); Carbon Dioxide 32 mmol/L (22-32); Chloride 97 mmol/L (98-107); Estimated Glomerular Filt Rate 54.9 mL/min (>60); Globulin 3.9 g/dL (1.7-4.1); Glucose 201 mg/dL (80-110); HEMOLYSIS < 15 (0-50); Potassium 3.4 mmol/L (3.4-5.1); Sodium 141 mmol/L (137-145); Total Protein 8.6 g/dL (6.3-8.2)
[2018-11-24 06:43] LABS: Influenza A and B by PCR Rapid Negative (Negative)
[2018-11-24 06:49] LABS: Troponin I 0.036 ng/mL (0.01-0.034)
[2018-11-24 06:56] LABS: Anisocytosis 1+; Macrocytosis 2+
--- NOTE | 2018-11-24 07:02 | DI.CT.S_ITS ---
PROCEDURE: CT ABDOMEN PELVIS W CON INDICATIONS: ABD pain and vomiting TECHNIQUE: After the administration of intravenous contrast, 5 mm thick sections acquired from the diaphragm to the symphysis. 5 mm coronal and sagittal reformats were acquired. For radiation dose reduction, the following was used: automated exposure control, adjustment of mA and/or kV according to patient size. COMPARISON: [facility], CT, CT ABDOMEN PELVIS W CON, 10/18/2018, 23:09. FINDINGS: Image quality: Excellent. ABDOMEN: Lung bases: Lung bases are clear. Heart size is mildly enlarged. Pacemaker leads are present. No pericardial effusion.. Solid organs: Liver is normal in size and enhancement. Gallbladder is surgically absent. Biliary system is non dilated. Pancreas enhances normally. 1.5 cm cyst in the ventral body of the pancreas. Spleen is normal in size and enhancement. No adrenal nodules. Mild to moderate bilateral hydronephrosis and prominence of the extrarenal pelves, right greater than left. Distally, the ureter is only in mildly dilated. No urinary calcifications are visible. Exophytic right renal cyst and cortical medullary left renal cyst. No solid renal mass. Urinary bladder is moderately distended. Peritoneum and bowel: Bowel loops demonstrate normal wall thickness and caliber. Occasional colonic diverticula. Normal amount of stool present. Normal appendix. Surgical changes of right hemicolectomy and probable low anterior resection.. There is a linear metallic density within the transverse colon measuring approximately 1.3 cm in length. No free fluid or air. Nodes and vessels: No retroperitoneal or mesenteric adenopathy by size criteria. Aorta and inferior vena cava are normal in size. Miscellaneous: No ventral hernias. PELVIS: Genitourinary: Bladder wall thickness is normal. Mild prostatomegaly. Miscellaneous: No inguinal hernias or adenopathy. Bones: No suspicious bony lesions. No vertebral body compression fractures. IMPRESSION: 1. No CT evidence of acute process. 2. Mild to moderate bilateral hydronephrosis is likely related to overdistention of the urinary bladder and vesicoureteral reflux. An area retention may be in part due to prostatomegaly. Recommend followup ultrasound after resolution of the patient's acute illness. 3. Ingested radiodense material, potentially foreign body, potentially medication in the transverse colon. No evidence of perforation. 4. Stable pancreatic cyst. 5. Surgical changes of cholecystectomy, right hemicolectomy, and low anterior resection. Dictated by: Alejandra Bacon M.D. on 11/24/2018 at 8:17 Approved by: Alejandra Bacon M.D. on 11/24/2018 at 8:29
[2018-11-24 07:19] LABS: Procalcitonin 0.05 ng/mL (<0.5)
[2018-11-24] MEDS: METOCLOPRAMIDE 10 MG/2 ML INJ IV (07:40)
[2018-11-24 07:56] VITALS: BP 152/61; PULSE 79; RESP 12; O2SAT 96
[2018-11-24 08:33] LABS: Appearance Urine UA SL CLOUDY; Bilirubin Urine UA NEGATIVE (NEGATIVE); Color Urine UA YELLOW; Glucose Urine UA NEGATIVE (Negative); Ketones Urine UA NEGATIVE (NEGATIVE); Leukocyte Esterase Urine UA NEGATIVE (NEGATIVE); Nitrite Urine UA NEGATIVE (Negative); Occult Blood Urine UA TRACE-LYSED (Negative); Protein Urine UA 2+ (Negative); Urobilinogen Urine UA 0.2 E.U./dL (0.2)
[2018-11-24 08:42] LABS: Bacteria Urine Many (>30); Culture Indicated Urine Specimen Cultured; RBC Urine 0-1/HPF (0-5/HPF); Squamous Epithelial Cell Urine 0-1 /HPF; WBC Urine 5-10/HPF (0-5/HPF)
[2018-11-24 09:30] VITALS: BP 170/69; PULSE 76; RESP 19; O2SAT 95
[2018-11-24] MEDS: HYDROCODONE/ACET 5/325 TABLET 1 TAB PO (10:24)
[2018-11-24 10:30] VITALS: BP 176/85; PULSE 74; O2SAT 94
[2018-11-24 11:46] VITALS: BP 173/77; PULSE 76; RESP 19; TEMP 36.9; O2SAT 96
== END 2018-11-24 11:15 | disposition home or self-care (01) ==
PROVIDERS: Emergency Medicine; Emergency Provider Emergency Medicine; PCP Internal Medicine
DX: R11.2 Nausea with vomiting, unspecified (principal)
CPT/HCPCS: 36415; 36591; 74022; 74177; 80053; 81001; 83605; 84145; 84484; 85025; 87040; 87077; 87086; 87186; 87400; 93005; 96361; 96374; 96375; 99284; 99285; C9113; J2765; Q9967

== ENCOUNTER → 2018-11-30 13:33 | Outpatient (CLI) | payer OTHER, SELFPAY | PROVIDERS: PCP Internal Medicine; Visit Provider Physician Assistant | DX: M85.851 Other specified disorders of bone density and structure, right thigh (principal); K92.9 Disease of digestive system, unspecified; Z79.899 Other long term (current) drug therapy | CPT/HCPCS: 77080 ==

== ENCOUNTER → 2018-12-20 11:54 | Outpatient (CLI) | payer OTHER, SELFPAY ==
[2018-12-20 12:18] LABS: Appearance Urine UA CLEAR; Bilirubin Urine UA NEGATIVE (NEGATIVE); Color Urine UA YELLOW; Glucose Urine UA NEGATIVE (Negative); Ketones Urine UA TRACE (NEGATIVE); Leukocyte Esterase Urine UA TRACE (NEGATIVE); Nitrite Urine UA POSITIVE (Negative); Occult Blood Urine UA TRACE-LYSED (Negative); Protein Urine UA 1+ (Negative); Specific Gravity Urine UA 1.025 (1.000-1.035); Urobilinogen Urine UA 0.2 E.U./dL (0.2)
[2018-12-20 12:31] LABS: Bacteria Urine Many (>30); Culture Indicated Urine Specimen Cultured; RBC Urine 1-5/HPF (0-5/HPF); WBC Urine 10-30/HPF (0-5/HPF)
== END ==
PROVIDERS: PCP Internal Medicine; Visit Provider Urology
DX: N39.0 Urinary tract infection, site not specified (principal)
CPT/HCPCS: 81001; 87077; 87086; 87186

== ENCOUNTER → 2019-04-11 08:56 | Outpatient (CLI) | payer OTHER, SELFPAY ==
[2019-04-11 11:27] LABS: Add Manual Diff / Slide Review NO; Basophils Absolute Auto 0 /uL (0-100); Basophils Percent Auto 0.7 % (0-2); Eosinophils Absolute Auto 100 /uL (0-450); Eosinophils Percent Auto 1.5 % (2-4); Hemoglobin 11.1 g/dL (13.5-17.5); Lymphocytes Absolute Auto 500 /uL (1100-4500); Lymphocytes Percent Auto 9.8 % (25-40); Mean Corpuscular HGB Conc 35.9 % (30-36); Mean Corpuscular Hemoglobin 41.8 PG (26-34); Mean Corpuscular Volume 116.5 fL (80-100); Monocytes Absolute Auto 300 /uL (0-900); Monocytes Percent Auto 5.8 % (3-14); Neutrophils Absolute Auto 4600 /uL (1500-7000); Neutrophils Percent Auto 82.2 % (50-75); Platelet Count 184 X10^3/uL (150-400); Red Blood Cell Count 2.66 X10^6/uL (4.5-5.9); Red Cell Distribution Width 16.2 % (11.6-14.8); White Blood Cell Count 5.5 X10^3/uL (4.5-11.0)
[2019-04-11 11:47] LABS: BUN Creatinine Ratio 28.7 (6-22); Blood Urea Nitrogen 43 mg/dL (9-20); Calcium 9.4 mg/dL (8.4-10.2); Carbon Dioxide 33 mmol/L (22-32); Chloride 96 mmol/L (98-107); Cholesterol 110 mg/dL (140-199); Estimated Glomerular Filt Rate 46.5 mL/min (>60); Glucose 192 mg/dL (80-110); HDL Cholesterol 30 mg/dL (40-60); HEMOLYSIS < 15 (0-50); LDL Cholesterol Calculated 58 mg/dL (<100); Potassium 3.8 mmol/L (3.4-5.1); Sodium 140 mmol/L (137-145); Triglycerides 111 mg/dL (35-150)
[2019-04-11 13:25] LABS: Anisocytosis 2+; Polychromasia 2+
[2019-04-11 13:26] LABS: Macrocytosis 1+; Microcytosis 1+
== END ==
PROVIDERS: PCP Internal Medicine; Visit Provider Internal Medicine Cardiovascular Disease
DX: I10 Essential (primary) hypertension (principal); E78.00 Pure hypercholesterolemia, unspecified
CPT/HCPCS: 36415; 80048; 80061; 85025

== ENCOUNTER → 2019-04-13 09:04 | Outpatient (CLI) | payer OTHER, SELFPAY ==
--- NOTE | 2019-04-13 | DI.ECHO.S_ITS ---
[facility] +---------+ [facility] +---------+ : : [address] : : : [place], [place] : : : : [id number] : : : : Phone: [phone] Echocardiogram Report + + :Name: MALINDA AMARAL Study Date: 04/13/2019 Height: 75 in : :[facility] Exam Location: [facility] Weight: 257 lb : : Gender: Male BSA: 2.4 m2 : :: 1950 Age: 68 yrs BP: 103/48 mmHg: :Reason For Study: CARDIOMYOPATHY : : Performed By: Vinay Gordon : :Referring: RIKKI DEJESUS : + + Interpretation Summary 1) Mildly increased left ventricular thickness (concentric) with upper normal size and low normal systolic function (EF 50-55%). 2) Normal right ventricular size and function. Pacemaker lead visualized in the RV. 3) There is mild to moderate aortic regurgitation. 4) The ascending aorta is mildly enlarged at 4.1cm. 5) No prior Echo available for comparison. Procedure: A two-dimensional transthoracic echocardiogram with color flow and Doppler was performed. The study quality was technically adequate. There is no prior echocardiogram noted for this patient. The patient has a paced rhythm. Left Ventricle: Left ventricular size is at the upper limits of normal. Left ventricular wall thickness is mildly increased. The ejection fraction is estimated to be 55-60%. Apical wall motion abnormality may reflect pacemaker activation. Right Ventricle: The right ventricle is normal in size and function. There is a pacemaker lead in the right ventricle. Atria: The left atrium is moderately dilated. The right atrium is mildly dilated. The interatrial septum is intact with no evidence for an atrial septal defect. Mitral Valve: The mitral valve is normal in structure and function. There is mild mitral regurgitation. Aortic Valve: The aortic valve is trileaflet. The aortic valve opens well. There is no aortic valve stenosis. There is mild to moderate aortic regurgitation. Tricuspid Valve: The tricuspid valve is normal in structure and function. There is mild tricuspid regurgitation. The right ventricular systolic pressure is estimated to be at least 28 mmHg based on an estimated right atrial pressure of 3 mm Hg. Pulmonic Valve: The pulmonic valve is normal in structure and function. There is no pulmonic valvular regurgitation. Great Vessels: The aortic root is normal size. The ascending aorta is mildly enlarged. The pulmonary artery is normal size. The IVC is of normal diameter and collapses greater than 50% with a sniff. This suggests a low right atrial pressure of 3 mm Hg. Pericardium/ Pleura There is no pericardial effusion. There is no pleural effusion. MMode/2D Measurements & Calculations LVIDd: 5.9 cm LVOT diam: 2.8 cm LVIDs: 4.1 cm Ao root diam: 4.1 cm FS: 31.0 % Aortic Jxn: 3.2 cm EPSS: 2.0 cm asc Aorta Diam: 4.1 cm IVSd: 1.5 cm Ao Arch Diam (Prox Trans): 3.1 cm LVPWd: 1.4 cm LV hua. diameter/BSA (cm/m^2): 2.4 LV sys. diameter/BSA (cm/m^2): 1.7 LA dimension: 4.8 cm RA long axis: 5.1 cm LA A2 area: 27.9 cm2 RA area: 23.3 cm2 LA A4 area: 29.5 cm2 RA vol: 90.4 ml LA length (vol): 6.6 cm RA : 37.0 ml/m2 LA vol: 105.6 ml IVC diam: 1.7 cm LA vol index: 43.3 ml/m2 RVD1 (basal): 4.3 cm RVD2 (mid): 4.4 cm Doppler Measurements & Calculations Ao V2 max: 157.5 cm/sec LVOT Max Alok: 89.6 cm/sec Ao V2 mean: 104.6 cm/sec LV V1 max P.2 mmHg Ao max P.9 mmHg LV V1 VTI: 15.7 cm Ao mean P.0 mmHg BRODERICK(I,D): 3.6 cm2 Ao V2 VTI: 26.1 cm BRODERICK(V,D): 3.4 cm2 sev ratio: 0.60 BRODERICK indexed to BSA (cm^2/m^2): 1.5 AI P1/2t: 672.5 msec AI dec slope: 161.2 cm/sec2 MV E max alok: 57.7 cm/sec TR max alok: 248.7 cm/sec MV A max alok: 92.7 cm/sec TR max P.7 mmHg MV E/A: 0.62 PA V2 max: 114.9 cm/sec Med Peak E' Alok: 2.9 cm/sec PA V2 mean: 79.8 cm/sec E/E' med: 20.0 PA mean P.8 mmHg Lat Peak E' Alok: 4.0 cm/sec PA pr(Accel): 26.6 mmHg E/E' lat: 14.3 E/e' average: 17.2 MV dec time: 0.27 sec SV(LVOT): 93.3 ml Reading Physician:05:03 PM
== END ==
PROVIDERS: PCP Internal Medicine; Visit Provider Internal Medicine Cardiovascular Disease
DX: I08.3 Combined rheumatic disorders of mitral, aortic and tricuspid valves (principal); I77.89 Other specified disorders of arteries and arterioles; I42.8 Other cardiomyopathies; Z95.0 Presence of cardiac pacemaker
CPT/HCPCS: 93306

== ENCOUNTER → 2019-05-16 09:06 | Outpatient (CLI) | payer OTHER, SELFPAY ==
[2019-05-16 10:06] LABS: Add Manual Diff / Slide Review NO; Basophils Absolute Auto 0 /uL (0-100); Basophils Percent Auto 0.4 % (0-2); Eosinophils Absolute Auto 100 /uL (0-450); Eosinophils Percent Auto 1.2 % (2-4); Hematocrit 33.2 % (41-53); Hemoglobin 11.6 g/dL (13.5-17.5); Lymphocytes Absolute Auto 500 /uL (1100-4500); Mean Corpuscular Hemoglobin 39.4 PG (26-34); Mean Corpuscular Volume 112.7 fL (80-100); Monocytes Absolute Auto 300 /uL (0-900); Monocytes Percent Auto 4.3 % (3-14); Neutrophils Absolute Auto 5500 /uL (1500-7000); Neutrophils Percent Auto 86.1 % (50-75); Platelet Count 176 X10^3/uL (150-400); Red Blood Cell Count 2.94 X10^6/uL (4.5-5.9); Red Cell Distribution Width 16.4 % (11.6-14.8); White Blood Cell Count 6.4 X10^3/uL (4.5-11.0)
[2019-05-16 10:20] LABS: Hemoglobin A1C% w Est Avg Glu 6.5 % (4.0-6.0)
[2019-05-16 10:24] LABS: Anisocytosis 2+
[2019-05-16 10:31] LABS: BUN Creatinine Ratio 26.4 (6-22); Blood Urea Nitrogen 37 mg/dL (9-20); Calcium 9.8 mg/dL (8.4-10.2); Carbon Dioxide 32 mmol/L (22-32); Chloride 99 mmol/L (98-107); Estimated Glomerular Filt Rate 50.4 mL/min (>60); Glucose 136 mg/dL (80-110); HEMOLYSIS < 15 (0-50); Potassium 3.6 mmol/L (3.4-5.1); Sodium 142 mmol/L (137-145)
== END ==
PROVIDERS: PCP Internal Medicine; Visit Provider Internal Medicine
DX: E11.9 Type 2 diabetes mellitus without complications (principal); K62.89 Other specified diseases of anus and rectum; I10 Essential (primary) hypertension
CPT/HCPCS: 36415; 80048; 83036; 83735; 85025

== ENCOUNTER → 2019-05-17 07:39 | Outpatient (CLI) | payer OTHER, SELFPAY ==
--- NOTE | 2019-05-17 | DI.NM.S_ITS ---
PROCEDURE: NM KARINE PERF SPECT R&S PHARM Rest and pharmacological stress myocardial perfusion SPECT with gated imaging and ejection fraction RADIOPHARMACEUTICAL: 25.7 mCi Tc-99m tetrafosmin IV at rest and 26.9 mCi Tc-99m tetrafosmin IV at peak effect of pharmacological stress. [id number] was performed. INDICATIONS: Ventricular tachycardia TECHNIQUE: Radiopharmaceutical was injected at peak stress test, and also at rest. SPECT images were obtained. SPECT myocardial perfusion images were displayed in short axis, horizontal long axis, and vertical long axis views. Gated images were reviewed using [employer]eline[employer] software. COMPARISON: None. CARDIAC STRESS: A pharmacologic stress test was performed under the supervision of an attending staff, using an infusion of lexiscan 0.4mg IV X1. Hemodynamic data: There is normal blood pressure and heart rate response to pharmacologic stress. Symptoms: The patient denied anginal chest pain. Aminophylline: none EKG: Ventricular paced rhythm at rest. ECG non-diagnostic due to ventricular pacing. FINDINGS: Raw data: There is good myocardial uptake of radiotracer. No significant motion artifacts Left ventricle function: Gated images demonstrate dyskinesis of apex and inferoapex. No transient ischemic dilation; TID is 1.05 (normal less than 1.3). Left ventricle resting end diastolic volume is 275 mL. Left ventricle stress ejection fraction is 44%; normal range is above 45%. Myocardial perfusion: There is a mildly intense inferior wall defect at rest that essentially resolves with stress and stress supine images suggesting artifact. The inferior apex and at apex have a moderately intense fixed defect that could be small prior infarct or pacemaker activation. IMPRESSION: abnormal pharm nuclear stress consistent with small prior infarct or pacemaker activation. No ischemia. 1) Abnormal perfusion images. There is a mildly intense inferior wall defect at rest that essentially resolves with stress and stress supine images suggesting artifact. The inferior apex and at apex have a moderately intense fixed defect that could be small prior infarct or pacemaker activation. SSS 2. 2) Enlarged left ventricle (rest EDV 275cc) with mildly reduced systolic function (post stress EF 44%). The apex and inferoapex are dyskinetic, which could represent pacemaker activation. 3) ECG non-diagnostic due to baselined ventricular paced rhythm. 4) No angina during the study. 5) No prior nuclear stress test available for comparison. Dictated by: Rick Dejesus MD on 05/19/2019 at 12:43 Approved by: Rick Dejesus MD on 05/19/2019 at 12:49
--- NOTE | 2019-05-19 11:43 | PM.TREADMILL ---
Cardiac Stress Test Report Referral & Results Date Patient Seen: 05/19/19 Time Patient Seen: 11:30 Requesting provider: Rick Dejesus Indication: NSVT Rest ECG: Idioventricular rhythm @ 70 BPM Procedure Note: After both written and verbal informed consent the patient had an IV started by the diagnostic imaging RN, and then was hooked up to the treadmill monitoring system. The Lexiscan material, and then the Cardiolite tracer, were administered sequentially. An additional 3 min was spent monitoring the patient while supine on the gurney. The patient experience some nausea, but otherwise had a normal response to all infused materials. Impression: Completed Radhika protocol. Will await perfusion imaging. Please note: Actual ECG tracings can be found in the PACS system.
== END ==
PROVIDERS: PCP Internal Medicine; Visit Provider Internal Medicine Cardiovascular Disease
DX: I47.2 Ventricular tachycardia (principal)
CPT/HCPCS: 78452; 93016; 93017; 93018; A9502; J2785

== ENCOUNTER 2019-06-13 14:03 | Emergency (ER) | payer OTHER, SELFPAY ==
[2019-06-13 14:05] VITALS: BP 123/72; PULSE 82; RESP 15; TEMP 36.9; O2SAT 97; BMI 30.4
--- NOTE | 2019-06-13 14:18 | ED_ITS ---
HPI - Male Genitourinary <MARTHA Madrid - Last Filed: 06/13/19 23:21> General Chief complaint: Urogenital-Male Stated complaint: Evaluated for possible bladder infection Time Seen by Provider: 06/13/19 14:16 Source: patient and family Mode of arrival: ambulatory Limitations: no limitations History of Present Illness HPI Narrative: This is a 68-year-old male, smoker, presents to ED with his with urinary discomfort, self-reported chills and fever, nausea for last couple of weeks. Patient reports has been having urinary frequency every [address] there is hardly any urine in his bladder. The patient has bladder issues and has been self cath him after a rectal surgery secondary to cancer for last 11 years. He reports he is still and irrigates his bladder once a week at night with gentamicin and noticed decreased in frequency of bladder infection last 3-4 months. Patient reports when he irrigates his bladder with gentamicin, his urinary symptoms usually subsides but last couple of weeks he continues to have increasing bladder infection symptoms. He contacted his urologist, Dr. Soriano, and referred to ED. Related Data Home Medications Medication Instructions Recorded Confirmed allopurinol 150 mg PO DAILY 10/18/18 06/13/19 carvedilol 25 mg PO BID 10/18/18 06/13/19 cetirizine 10 mg PO DAILY PRN 10/18/18 11/24/18 fluticasone propionate 1 spray INTRANASAL DAILY PRN 10/18/18 11/24/18 furosemide 20 mg PO DAILY PRN 10/18/18 06/13/19 hydrochlorothiazide 25 mg PO DAILY 10/18/18 06/13/19 insulin NPH isoph U-100 human 16 units SUBCUT DAILY 10/18/18 11/24/18 [Humulin N NPH U-100 Insulin] lisinopril 20 mg PO DAILY 10/18/18 06/13/19 potassium chloride [K-Tab] 20 meq PO DAILY 10/18/18 06/13/19 tamsulosin 0.4 mg PO BID 10/18/18 06/13/19 azathioprine 100 mg PO DAILY 11/24/18 06/13/19 cyanocobalamin (vitamin B-12) 1,000 mcg PO DAILY 11/24/18 11/24/18 [Vitamin B-12] ferrous gluconate 324 mg PO DAILY 11/24/18 11/24/18 magnesium oxide 400 mg PO BID 11/24/18 11/24/18 amlodipine 10 mg PO DAILY 06/13/19 06/13/19 rosuvastatin mg 06/13/19 Previous Rx's Medication Instructions Recorded cephalexin 500 mg PO QID 10 Days #40 cap 06/13/19 Allergies Allergy/AdvReac Type Severity Reaction Status Date / Time fluorouracil Allergy Verified 06/13/19 14:09 Review of Systems <MARTHA Madrid - Last Filed: 06/13/19 23:21> Review of Systems Narrative: General: See HPI HEENT: Denies sinus pain, ear pain, sore throat, difficulty swallowing, dizziness. Respiratory: Denies dyspnea, cough, wheezing, hemoptysis, sputum. Cardiovascular: Denies chest pain, palpitations, orthopnea, edema. Gastrointestinal: Reports nausea. Denies vomiting, abdominal pain, diarrhea, constipation, melena. : See HPI Musculoskeletal: Denies weakness, joint pain or bony pain. Skin: Denies rash, skin lesions, or other. Neurologic: Denies weakness, headache, numbness, change in speech, confusion, seizures, incoordination. Psychiatric: No concerning psychosocial issues. 12-point review of systems is negative except for those stated above. PFSH <MARTHA Madrid - Last Filed: 06/13/19 23:21> Medical History Celiac disease (Acute) Congestive heart failure (Acute) Diabetes (Acute) Rectal cancer (Acute) Surgical History H/O colectomy (Acute) Social History lives independently: Yes Smoking Status: Unknown if ever smoked Social History lives independently: Yes Smoking Status: Unknown if ever smoked Exam <MARTHA Madrid - Last Filed: 06/13/19 23:21> Narrative Exam Narrative: General appearance: well developed, well nourished, in no acute distress. Head: normocephalic, atraumatic, no scalp lesions, non-tender. Eye: pupil equal, round. EOMI. Nose: nares patent. Oral: mucosa moist. Neck/Thyroid: neck supple, full range of motion, no visible masses. Skin: no suspicious rashes, lesions over visible areas. Hot and dry. Heart: no clubbing, no cyanosis, no edema. Lungs: Breathing even and unlabored. No stridor. No accessory muscles used. Chest: normal shape and expansion. Abdomen: non-obese, non-distended. Neurologic: alert and oriented. Cognitive exam, FIRE COORDINATOR and PNS grossly intact on informal exam. Psych: good eye contact, normal affect. Initial Vital Signs Initial Vital Signs: Vital Signs Temperature 98.4 F 06/13/19 14:05 Pulse Rate 82 06/13/19 14:05 Respiratory Rate 15 06/13/19 14:05 Blood Pressure 123/72 06/13/19 14:05 Pulse Oximetry 97 06/13/19 14:05 <Kenzie Encarnacion DO - Last Filed: 06/16/19 19:20> Initial Vital Signs Initial Vital Signs: Vital Signs Temperature 98.4 F 06/13/19 14:05 Pulse Rate 82 06/13/19 14:05 Respiratory Rate 15 06/13/19 14:05 Blood Pressure 123/72 06/13/19 14:05 Pulse Oximetry 97 06/13/19 14:05 Course <MARTHA Madrid - Last Filed: 06/13/19 23:21> Orders Ordered: Discontinued Medications Sodium Chloride (Normal Saline 0.9%) 1,000 mls @ 1,000 mls/hr IV BOLUS PRN PRN Reason: Fluid replacement Last Infusion: 06/13/19 17:30 Dose: 0 mls/hr Documented by: Admin: 06/13/19 15:41 Dose: 1,000 mls/hr Documented by: CAROL Ceftriaxone Sodium/Dextrose (Rocephin) 1 gm in 50 mls @ 100 mls/hr IV NOW ONE Stop: 06/13/19 16:36 Last Infusion: 06/13/19 17:14 Dose: 0 mls/hr Documented by: Admin: 06/13/19 16:41 Dose: 100 mls/hr Documented by: CAROL Vital Signs Vital signs: Vital Signs - 8 hr 06/13/19 16:04 06/13/19 17:19 Temperature 97.5 F L Pulse Rate 88 79 Respiratory Rate 16 16 Blood Pressure [Left Arm] 110/62 114/68 Pulse Oximetry 97 99 <Kenzie Encarnacion DO - Last Filed: 06/16/19 19:20> Orders Ordered: Discontinued Medications Sodium Chloride (Normal Saline 0.9%) 1,000 mls @ 1,000 mls/hr IV BOLUS PRN PRN Reason: Fluid replacement Last Infusion: 06/13/19 17:30 Dose: 0 mls/hr Documented by: Admin: 06/13/19 15:41 Dose: 1,000 mls/hr Documented by: CAROL Ceftriaxone Sodium/Dextrose (Rocephin) 1 gm in 50 mls @ 100 mls/hr IV NOW ONE Stop: 06/13/19 16:36 Last Infusion: 06/13/19 17:14 Dose: 0 mls/hr Documented by: Admin: 06/13/19 16:41 Dose: 100 mls/hr Documented by: CAROL Vital Signs Vital signs: Vital Signs - 8 hr 06/13/19 16:04 06/13/19 17:19 Temperature 97.5 F L Pulse Rate 88 79 Respiratory Rate 16 16 Blood Pressure [Left Arm] 110/62 114/68 Pulse Oximetry 97 99 MDM - Male Genitourinary <MARTHA Madrid - Last Filed: 06/13/19 23:21> Differential Diagnosis Differential diagnosis: Likely urinary tract infection, prostatitis and other (bladder infection, kidney infection) Medical Records Attestation: I reviewed the patient's medical records. Lab Data Attestation: I reviewed the patient's lab results. Result diagrams: 06/13/19 14:40 06/13/19 14:40 Labs: Lab Results 06/13/19 06/13/19 06/13/19 Range/Units 14:08 14:40 14:40 WBC 6.7 (4.5-11.0) X10^3/uL RBC 2.93 L (4.5-5.9) X10^6/uL Hgb 11.6 L (13.5-17.5) g/dL Hct 33.1 L (41-53) % MCV 113.1 H (80-100) fL MCH 39.8 H (26-34) PG MCHC 35.2 (30-36) % RDW 17.7 H (11.6-14.8) % Plt Count 200 (150-400) X10^3/uL Neut % (Auto) 87.2 H (50-75) % Lymph % (Auto) 6.5 L (25-40) % [place] % (Auto) 5.5 (3-14) % Eos % (Auto) 0.3 L (2-4) % Baso % (Auto) 0.5 (0-2) % Neut # (Auto) 5800 (0483-0996) /uL Lymph # (Auto) 400 L (3296-7454) /uL [place] # (Auto) 400 (0-900) /uL Eos # (Auto) 0 (0-450) /uL Baso # (Auto) 0 (0-100) /uL RBC Morphology See below Macrocytosis 2+ H Sodium (137-145) mmol/L Potassium (3.4-5.1) mmol/L Chloride (98-107) mmol/L Carbon Dioxide (22-32) mmol/L BUN (9-20) mg/dL Creatinine (0.66-1.25) mg/dL Estimated GFR (>60) mL/min BUN/Creatinine Ratio (6-22) Glucose (80-110) mg/dL Lactate (0.7-2.1) mmol/L Calcium (8.4-10.2) mg/dL Total Bilirubin (0.2-1.3) mg/dL AST (17-59) IU/L ALT (21-72) IU/L Alkaline Phosphatase (38-126) U/L Total Protein (6.3-8.2) g/dL Albumin (3.5-5.0) g/dL Globulin (1.7-4.1) g/dL Albumin/Globulin Ratio (1.0-2.8) Procalcitonin 0.06 (<0.5) ng/mL Urine RBC None seen (0-5/HPF) Urine WBC None seen (0-5/HPF) Urine Bacteria Many (>30) H (None) Ur Culture Indicated? Specimen cultured 06/13/19 06/13/19 06/13/19 Range/Units 14:40 14:40 17:03 WBC (4.5-11.0) X10^3/uL RBC (4.5-5.9) X10^6/uL Hgb (13.5-17.5) g/dL Hct (41-53) % MCV (80-100) fL MCH (26-34) PG MCHC (30-36) % RDW (11.6-14.8) % Plt Count (150-400) X10^3/uL Neut % (Auto) (50-75) % Lymph % (Auto) (25-40) % [place] % (Auto) (3-14) % Eos % (Auto) (2-4) % Baso % (Auto) (0-2) % Neut # (Auto) (9797-5839) /uL Lymph # (Auto) (1380-7511) /uL [place] # (Auto) (0-900) /uL Eos # (Auto) (0-450) /uL Baso # (Auto) (0-100) /uL RBC Morphology Macrocytosis Sodium 139 (137-145) mmol/L Potassium 3.7 (3.4-5.1) mmol/L Chloride 95 L (98-107) mmol/L Carbon Dioxide 30 (22-32) mmol/L BUN 33 H (9-20) mg/dL Creatinine 1.50 H (0.66-1.25) mg/dL Estimated GFR 46.5 L (>60) mL/min BUN/Creatinine Ratio 22.0 (6-22) Glucose 176 H (80-110) mg/dL Lactate 2.5 H 1.8 (0.7-2.1) mmol/L Calcium 10.0 (8.4-10.2) mg/dL Total Bilirubin 0.9 (0.2-1.3) mg/dL AST 26 (17-59) IU/L ALT 15 L (21-72) IU/L Alkaline Phosphatase 60 (38-126) U/L Total Protein 8.0 (6.3-8.2) g/dL Albumin 4.5 (3.5-5.0) g/dL Globulin 3.5 (1.7-4.1) g/dL Albumin/Globulin Ratio 1.3 (1.0-2.8) Procalcitonin (<0.5) ng/mL Urine RBC (0-5/HPF) Urine WBC (0-5/HPF) Urine Bacteria (None) Ur Culture Indicated? Urine Dip Bedside Urine Glucose Negative Bedside Urine Bilirubin - Negative Bedside Urine Ketone - Negative Urine Specific [place] 1.020 Bedside Urine Occult Blood - Negative Bedside Urine pH 5.5 Bedside Urine Protein - Negative Bedside Urine Urobilinogen - Negative Bedside Urine Nitrite + Positive Bedside Urine Leukocytes - Negative Esterase MDM Narrative Medical decision making narrative: This is a 68-year-old male, nontoxic appearance, referred from , his urologist for an evaluation for the patient's urinary symptoms that he has been having last couple of weeks. Patient has frequent UTI/bladder infection and he self cath for urination last 11 years. Since the gentamicin bladder irrigation, the patient noticed decreased occurrence of UTI/bladder infection last 3-4 months. However, last couple of weeks despite the same regimen, patient reports his symptoms has been remaining. To the POC urine test it has positive urine nitrite with negative urine leukocytes esterase, microscopic urine test was done and showing many bacteria in his urine and it is being cultured at this time. Patient had history of E coli isolated urine culture in December 2018 and was susceptible with Augmentin, Keflex. Patient's white count was normal with elevated neutrophil. The procalcitonin was normal, however lactate was elevated as 2.5. Patient was treated with normal saline 500 mL due to his history of heart failure and IV antibiotic medication of Rocephin 1 g prior patient being discharged to home. Noticed decreased GFR as 46.5 and creatinine of 1.5 any increased BUN of 33 today and appears to be this is about the patient's baseline. Patient also has been having anemia. Patient was discharged to home with Keflex 500 mg q.i.d. dose for 10 days treating as complicated UTI and advised to follow up with Dr. Soriano and PCP in 2-3 days for re-evaluation and strict return precautions were discussed with patient. Patient and spouse agree with treatment plan and no further questions were expressed at this time. <Kenzie Encarnacion, DO - Last Filed: 06/16/19 19:20> Lab Data Labs: Lab Results 06/13/19 06/13/19 06/13/19 Range/Units 14:08 14:40 14:40 WBC 6.7 (4.5-11.0) X10^3/uL RBC 2.93 L (4.5-5.9) X10^6/uL Hgb 11.6 L (13.5-17.5) g/dL Hct 33.1 L (41-53) % MCV 113.1 H (80-100) fL MCH 39.8 H (26-34) PG MCHC 35.2 (30-36) % RDW 17.7 H (11.6-14.8) % Plt Count 200 (150-400) X10^3/uL Neut % (Auto) 87.2 H (50-75) % Lymph % (Auto) 6.5 L (25-40) % [place] % (Auto) 5.5 (3-14) % Eos % (Auto) 0.3 L (2-4) % Baso % (Auto) 0.5 (0-2) % Neut # (Auto) 5800 (6455-1191) /uL Lymph # (Auto) 400 L (3827-1231) /uL [place] # (Auto) 400 (0-900) /uL Eos # (Auto) 0 (0-450) /uL Baso # (Auto) 0 (0-100) /uL RBC Morphology See below Macrocytosis 2+ H Sodium (137-145) mmol/L Potassium (3.4-5.1) mmol/L Chloride (98-107) mmol/L Carbon Dioxide (22-32) mmol/L BUN (9-20) mg/dL Creatinine (0.66-1.25) mg/dL Estimated GFR (>60) mL/min BUN/Creatinine Ratio (6-22) Glucose (80-110) mg/dL Lactate (0.7-2.1) mmol/L Calcium (8.4-10.2) mg/dL Total Bilirubin (0.2-1.3) mg/dL AST (17-59) IU/L ALT (21-72) IU/L Alkaline Phosphatase (38-126) U/L Total Protein (6.3-8.2) g/dL Albumin (3.5-5.0) g/dL Globulin (1.7-4.1) g/dL Albumin/Globulin Ratio (1.0-2.8) Procalcitonin 0.06 (<0.5) ng/mL Urine RBC None seen (0-5/HPF) Urine WBC None seen (0-5/HPF) Urine Bacteria Many (>30) H (None) Ur Culture Indicated? Specimen cultured 06/13/19 06/13/19 06/13/19 Range/Units 14:40 14:40 17:03 WBC (4.5-11.0) X10^3/uL RBC (4.5-5.9) X10^6/uL Hgb (13.5-17.5) g/dL Hct (41-53) % MCV (80-100) fL MCH (26-34) PG MCHC (30-36) % RDW (11.6-14.8) % Plt Count (150-400) X10^3/uL Neut % (Auto) (50-75) % Lymph % (Auto) (25-40) % [place] % (Auto) (3-14) % Eos % (Auto) (2-4) % Baso % (Auto) (0-2) % Neut # (Auto) (6909-4543) /uL Lymph # (Auto) (6354-6084) /uL [place] # (Auto) (0-900) /uL Eos # (Auto) (0-450) /uL Baso # (Auto) (0-100) /uL RBC Morphology Macrocytosis Sodium 139 (137-145) mmol/L Potassium 3.7 (3.4-5.1) mmol/L Chloride 95 L (98-107) mmol/L Carbon Dioxide 30 (22-32) mmol/L BUN 33 H (9-20) mg/dL Creatinine 1.50 H (0.66-1.25) mg/dL Estimated GFR 46.5 L (>60) mL/min BUN/Creatinine Ratio 22.0 (6-22) Glucose 176 H (80-110) mg/dL Lactate 2.5 H 1.8 (0.7-2.1) mmol/L Calcium 10.0 (8.4-10.2) mg/dL Total Bilirubin 0.9 (0.2-1.3) mg/dL AST 26 (17-59) IU/L ALT 15 L (21-72) IU/L Alkaline Phosphatase 60 (38-126) U/L Total Protein 8.0 (6.3-8.2) g/dL Albumin 4.5 (3.5-5.0) g/dL Globulin 3.5 (1.7-4.1) g/dL Albumin/Globulin Ratio 1.3 (1.0-2.8) Procalcitonin (<0.5) ng/mL Urine RBC (0-5/HPF) Urine WBC (0-5/HPF) Urine Bacteria (None) Ur Culture Indicated? Urine Dip Bedside Urine Glucose Negative Bedside Urine Bilirubin - Negative Bedside Urine Ketone - Negative Urine Specific [place] 1.020 Bedside Urine Occult Blood - Negative Bedside Urine pH 5.5 Bedside Urine Protein - Negative Bedside Urine Urobilinogen - Negative Bedside Urine Nitrite + Positive Bedside Urine Leukocytes - Negative Esterase Discharge Plan Departure Patient Disposition: Home Clinical Impression: Bladder infection Discharge Date/Time: 06/13/19 17:30 Instructions: DI for Acute Cystitis Activity Restrictions/Additional Instructions: You have been diagnosed with [bladder infection per urine test. You're being treated with Keflex as complicated infection with history E-coli infection and self-jessica for urination. Please start the first dose before going to bed tonight. Your CBC was normal but had mildly elevated lactate. Your urine is being cultured and if you need different antibiotic medication to treat infection will get a phone call from us]. What to do: *Take your medications as directed. [facility] [place] *Follow up with your primary care provider/Dr. Soriano in 2-3 days, call for an appointment. Let them know you were seen in the ED and that we asked you to be seen in follow up. *Return to ED if you have any new, worsening, or concerning symptoms, such as [increasing pain, flank pain, unable to tolerate fluids, fever and chills, chest pain, breathing difficulty, feeling faint, or any acute concerns]. Prescriptions: New cephalexin 500 mg capsule 500 mg PO QID 10 Days Qty: 40 RF: 0 No Action carvedilol 25 mg Tablet 25 mg PO BID RF: 0 cetirizine 10 mg Tablet 10 mg PO DAILY PRN (Reason: Allergy Symptoms) RF: 0 lisinopril 20 mg Tablet 20 mg PO DAILY RF: 0 potassium chloride [K-Tab] 10 mEq Tablet Extended Release 20 meq PO DAILY RF: 0 allopurinol 100 mg Tablet 150 mg PO DAILY RF: 0 tamsulosin 0.4 mg Capsule 0.4 mg PO BID RF: 0 Humulin N NPH U-100 Insulin 100 unit/mL Suspension 16 units subcut DAILY RF: 0 hydrochlorothiazide 25 mg Tablet 25 mg PO DAILY RF: 0 furosemide 20 mg Tablet 20 mg PO DAILY PRN (Reason: Weight above 244#) RF: 0 fluticasone propionate 50 mcg/actuation [place],Suspension 1 spray INTRANASAL DAILY PRN (Reason: Allergy Symptoms) RF: 0 amlodipine 10 mg tablet 10 mg PO DAILY RF: 0 rosuvastatin 5 mg tablet RF: 0 cyanocobalamin (vitamin B-12) [Vitamin B-12] 1,000 mcg tablet 1,000 mcg PO DAILY RF: 0 azathioprine 50 mg Tablet 100 mg PO DAILY RF: 0 magnesium oxide 400 mg (241.3 mg magnesium) tablet 400 mg PO BID RF: 0 ferrous gluconate 324 mg (38 mg iron) tablet 324 mg PO DAILY RF: 0 Referrals: Denice Soriano MD [Non-Staff] - Joel Solares MD [Primary Care Provider] -
[2019-06-13 14:20] LABS: RBC Urine None Seen (0-5/HPF); WBC Urine None Seen (0-5/HPF)
[2019-06-13 14:24] LABS: Bacteria Urine Many (>30)
[2019-06-13 14:25] LABS: Culture Indicated Urine Specimen Cultured
[2019-06-13 14:55] LABS: Add Manual Diff / Slide Review NO; Basophils Absolute Auto 0 /uL (0-100); Basophils Percent Auto 0.5 % (0-2); Eosinophils Absolute Auto 0 /uL (0-450); Eosinophils Percent Auto 0.3 % (2-4); Hematocrit 33.1 % (41-53); Hemoglobin 11.6 g/dL (13.5-17.5); Lymphocytes Absolute Auto 400 /uL (1100-4500); Lymphocytes Percent Auto 6.5 % (25-40); Mean Corpuscular HGB Conc 35.2 % (30-36); Mean Corpuscular Hemoglobin 39.8 PG (26-34); Mean Corpuscular Volume 113.1 fL (80-100); Monocytes Absolute Auto 400 /uL (0-900); Monocytes Percent Auto 5.5 % (3-14); Neutrophils Absolute Auto 5800 /uL (1500-7000); Neutrophils Percent Auto 87.2 % (50-75); Platelet Count 200 X10^3/uL (150-400); Red Blood Cell Count 2.93 X10^6/uL (4.5-5.9); Red Cell Distribution Width 17.7 % (11.6-14.8); White Blood Cell Count 6.7 X10^3/uL (4.5-11.0)
[2019-06-13 15:07] LABS: Alanine Aminotransferase 15 IU/L (21-72); Albumin 4.5 g/dL (3.5-5.0); Albumin Globulin Ratio 1.3 (1.0-2.8); Alkaline Phosphatase 60 U/L (38-126); Aspartate Aminotransferase 26 IU/L (17-59); Bilirubin Total 0.9 mg/dL (0.2-1.3); Blood Urea Nitrogen 33 mg/dL (9-20); Carbon Dioxide 30 mmol/L (22-32); Chloride 95 mmol/L (98-107); Estimated Glomerular Filt Rate 46.5 mL/min (>60); Globulin 3.5 g/dL (1.7-4.1); Glucose 176 mg/dL (80-110); HEMOLYSIS < 15 (0-50); Potassium 3.7 mmol/L (3.4-5.1); Sodium 139 mmol/L (137-145)
[2019-06-13 15:08] LABS: Lactate (Lactic Acid) 2.5 mmol/L (0.7-2.1)
[2019-06-13 15:20] LABS: Macrocytosis 2+
[2019-06-13 15:23] LABS: Procalcitonin 0.06 ng/mL (<0.5)
[2019-06-13] MEDS: SODIUM CHLORIDE 0.9% 1,000 ML 1000 ML IV (15:41)
[2019-06-13 16:04] VITALS: BP 110/62; PULSE 88; RESP 16; O2SAT 97
[2019-06-13] MEDS: CEFTRIAXONE 1 GM/50 ML FROZ.PIGGY IV (16:41)
[2019-06-13 16:50] LABS: Reflexed Lactate in 2 Hours Y
[2019-06-13 17:15] LABS: Lactate 2HR (Lactic Acid Rflx) 1.8 mmol/L (0.7-2.1)
[2019-06-13 17:19] VITALS: BP 114/68; PULSE 79; RESP 16; TEMP 36.4; O2SAT 99
--- NOTE | 2019-06-16 16:52 | PC.NURSE ---
Per Dr. Encarnacion changed prescription to Cipro 500mg BID x 7 days qty 14 no refills.
== END 2019-06-13 17:30 | disposition home or self-care (01) ==
PROVIDERS: Emergency Provider Nurse Practitioner Family; PCP Internal Medicine
DX: N30.90 Cystitis, unspecified without hematuria (principal)
CPT/HCPCS: 36415; 36591; 80053; 81003; 81015; 83605; 84145; 85025; 87040; 87077; 87086; 87186; 96361; 96365; 99283; 99284

== ENCOUNTER → 2019-08-21 09:14 | Outpatient (CLI) | payer OTHER, SELFPAY ==
[2019-08-21 10:12] LABS: Hemoglobin A1C% w Est Avg Glu 6.9 % (4.0-6.0)
[2019-08-21 10:16] LABS: Basophils Absolute Auto 0 /uL (0-100); Basophils Percent Auto 0.4 % (0-2); Eosinophils Absolute Auto 100 /uL (0-450); Eosinophils Percent Auto 1.2 % (2-4); Hemoglobin 11.7 g/dL (13.5-17.5); Lymphocytes Absolute Auto 400 /uL (1100-4500); Lymphocytes Percent Auto 5.9 % (25-40); Mean Corpuscular HGB Conc 35.6 % (30-36); Mean Corpuscular Hemoglobin 41.8 PG (26-34); Mean Corpuscular Volume 117.6 fL (80-100); Monocytes Absolute Auto 300 /uL (0-900); Neutrophils Absolute Auto 5200 /uL (1500-7000); Neutrophils Percent Auto 87.5 % (50-75); Platelet Count 204 X10^3/uL (150-400); Red Blood Cell Count 2.81 X10^6/uL (4.5-5.9); Red Cell Distribution Width 16.4 % (11.6-14.8)
[2019-08-21 10:28] LABS: Alanine Aminotransferase 19 IU/L (<50); Albumin 4.4 g/dL (3.5-5.0); Albumin Globulin Ratio 1.5 (1.0-2.8); Alkaline Phosphatase 63 U/L (38-126); Aspartate Aminotransferase 27 IU/L (17-59); Bilirubin Total 0.8 mg/dL (0.2-1.3); Blood Urea Nitrogen 36 mg/dL (9-20); Calcium 9.7 mg/dL (8.4-10.2); Carbon Dioxide 30 mmol/L (22-32); Chloride 99 mmol/L (98-107); Estimated Glomerular Filt Rate 46.4 mL/min (>60); Glucose 262 mg/dL (80-110); HEMOLYSIS < 15 (0-50); Potassium 3.7 mmol/L (3.4-5.1); Sodium 142 mmol/L (137-145); Total Protein 7.4 g/dL (6.3-8.2)
[2019-08-21 10:34] LABS: Add Manual Diff / Slide Review SLIDE REVIEW
[2019-08-21 11:22] LABS: Creatinine Urine Random 155.1 mg/dL
[2019-08-21 11:28] LABS: Folate 9.2 ng/mL (2.76-20.0); Vitamin B12 520 pg/mL (239-931)
[2019-08-21 11:28] LABS: Microalbumi Creatinin Ratio Ur 87.6 ug/mg CR (<30); Microalbumin Urine Random 13.6 mg/dL (0-1.6)
[2019-08-21 11:52] LABS: Macrocytosis 2+
[2019-08-21 11:53] LABS: Anisocytosis 1+
== END ==
PROVIDERS: PCP Internal Medicine; Visit Provider Internal Medicine
DX: M10.00 Idiopathic gout, unspecified site (principal); E11.9 Type 2 diabetes mellitus without complications; D53.9 Nutritional anemia, unspecified
CPT/HCPCS: 36415; 80053; 82043; 82570; 82607; 82746; 83036; 85025

== ENCOUNTER → 2019-08-25 09:41 | Outpatient (CLI) | payer OTHER, SELFPAY ==
[2019-08-25 11:30] LABS: Prostate Specific Antigen 1.28 ng/mL (0.10-4.00)
== END ==
PROVIDERS: PCP Internal Medicine; Visit Provider Specialist
DX: N40.1 Benign prostatic hyperplasia with lower urinary tract symptoms (principal)
CPT/HCPCS: 36415; 84153

== ENCOUNTER 2019-11-28 23:58 | Emergency (ER) | payer MEDICARE, SELFPAY ==
[2019-11-28 23:58] VITALS: BP 184/88; PULSE 114; RESP 18; TEMP 37.3; O2SAT 96
--- NOTE | 2019-11-29 00:32 | ED_ITS ---
HPI - General Adult General Chief complaint: Nausea/Vomiting/Diarrhea Stated complaint: vomiting has had flu Time Seen by Provider: 11/29/19 00:08 Source: patient Mode of arrival: Ambulatory Limitations: no limitations History of Present Illness HPI narrative: 69-year-old male here for evaluation of 3-4 days of would the patient describes the flu. He also started to develop nausea and vomiting today. He describes generalized malaise, some coughing, some abdominal pain with the vomiting, has diarrhea but this is not new for him. Does self cath for urine but this is not new. No chest pain. No shortness of breath. Came in this evening because of the vomiting. Related Data Home Medications Medication Instructions Recorded Confirmed allopurinol 150 mg PO DAILY 10/18/18 06/13/19 carvedilol 25 mg PO BID 10/18/18 06/13/19 cetirizine 10 mg PO DAILY PRN 10/18/18 11/24/18 fluticasone propionate 1 spray INTRANASAL DAILY PRN 10/18/18 11/24/18 furosemide 20 mg PO DAILY PRN 10/18/18 06/13/19 hydrochlorothiazide 25 mg PO DAILY 10/18/18 06/13/19 insulin NPH isoph U-100 human 16 units SUBCUT DAILY 10/18/18 11/24/18 [Humulin N NPH U-100 Insulin] lisinopril 20 mg PO DAILY 10/18/18 06/13/19 potassium chloride [K-Tab] 20 meq PO DAILY 10/18/18 06/13/19 tamsulosin 0.4 mg PO BID 10/18/18 06/13/19 azathioprine 100 mg PO DAILY 11/24/18 06/13/19 cyanocobalamin (vitamin B-12) 1,000 mcg PO DAILY 11/24/18 11/24/18 [Vitamin B-12] ferrous gluconate 324 mg PO DAILY 11/24/18 11/24/18 magnesium oxide 400 mg PO BID 11/24/18 11/24/18 amlodipine 10 mg PO DAILY 06/13/19 06/13/19 rosuvastatin mg 06/13/19 Previous Rx's Medication Instructions Recorded prochlorperazine maleate 10 mg PO Q8H PRN #10 tab 11/29/19 [Compazine] Allergies Allergy/AdvReac Type Severity Reaction Status Date / Time fluorouracil Allergy Verified 11/29/19 01:19 Review of Systems Constitutional Constitutional: Reports fever(s) Cardiovascular Cardiovascular: Denies chest pain, Denies rapid heart rate and Denies dyspnea Respiratory Respiratory: Reports cough and Denies dyspnea Gastrointestinal Gastrointestinal: Reports abdominal pain, Denies change in stool character, Reports diarrhea, Reports nausea and Reports vomiting Musculoskeletal Musculoskeletal: Denies myalgias and Denies arthralgias Integumentary/Breasts Skin/Breast: Denies lesions and Denies rash Neurologic Neurologic: Denies behavioral changes Psychiatric Psychiatric: Denies behavioral changes Hematologic/Lymphatic Hematologic/Lymphatic: Denies easy bleeding and Denies easy bruising Patient History Medical History Celiac disease (Acute) Congestive heart failure (Acute) Diabetes (Acute) Rectal cancer (Acute) Social History lives independently: Yes Smoking Status: Unknown if ever smoked Smoking Status: Unknown if ever smoked alcohol intake frequency: holidays/special occasions only Substance Use Type: does not use Exam Initial Vital Signs Initial Vital Signs: Vital Signs Temperature 99.1 F 11/28/19 23:58 Pulse Rate 114 H 11/28/19 23:58 Respiratory Rate 18 11/28/19 23:58 Blood Pressure 184/88 H 11/28/19 23:58 Pulse Oximetry 96 11/28/19 23:58 Const General: cooperative, comfortable, well developed and well groomed Limitations: mental status not altered HENMT Head: normal to inspection and normocephalic Resp Effort & Inspection: normal respiratory effort Cardio Rate: regular rate Rhythm: regular rhythm GI Inspection: non-distended Palpation: soft, No firm and No tender Back/Spine/Pelvis Back: No CVA tenderness Skin Lesions: no lesions Rashes: no rashes Neuro General: alert, awake and oriented x3 Cognition: normal cognition Speech: speech normal Gait: normal gait Motor: muscle tone normal throughout Extrem General: normal to inspection and capillary refill normal Psych Appearance: grossly normal and well kempt Course Orders Ordered: ED Orders 11/29/19 00:14 Complete Blood Count AUTO DIFF Stat Comprehensive Metabolic Panel Stat Lipase Stat Troponin I Stat 11/29/19 00:20 EKG-12 Lead Stat 11/29/19 00:55 Influenza A & B (PCR) Stat 11/29/19 02:04 CT abdomen pelvis w con Stat 11/29/19 02:22 Troponin I Stat 11/29/19 04:34 Troponin I Stat Discontinued Medications Sodium Chloride (Normal Saline 0.9%) 1,000 mls @ 1,000 mls/hr IV BOLUS ONE Stop: 11/29/19 01:18 Last Infusion: 11/29/19 05:01 Dose: 0 mls/hr Documented by: Admin: 11/29/19 00:41 Dose: 1,000 mls/hr Documented by: TIMUR Metoclopramide HCl (Reglan) 10 mg IV NOW ONE Stop: 11/29/19 01:13 Last Admin: 11/29/19 01:20 Dose: 10 mg Documented by: TIMUR Ondansetron HCl (Zofran) 4 mg IV NOW ONE Stop: 11/29/19 00:20 Last Admin: 11/29/19 00:41 Dose: 4 mg Documented by: TIMUR Ondansetron HCl (Zofran Odt Prepack) 1 bottle MISC SEEINSTR ONE Stop: 11/29/19 05:15 Last Admin: 11/29/19 05:27 Dose: 1 bottle Documented by: TIMUR Prochlorperazine (Compazine) 10 mg IV NOW ONE Stop: 11/29/19 04:06 Last Admin: 11/29/19 04:10 Dose: 10 mg Documented by: TIMUR Vital Signs Vital signs: Vital Signs - 8 hr 11/28/19 23:58 11/29/19 01:37 11/29/19 03:03 Temperature 99.1 F Pulse Rate 114 H 90 100 H Respiratory Rate 18 20 22 Blood Pressure 184/88 H Blood Pressure [Right Arm] 177/80 H 186/86 H Pulse Oximetry 96 97 94 11/29/19 04:09 11/29/19 04:10 11/29/19 05:00 Temperature Pulse Rate 111 H 110 H 114 H Respiratory Rate 22 18 Blood Pressure 161/74 H Blood Pressure [Right Arm] 161/74 H 166/84 H Pulse Oximetry 96 96 Medical Decision Making Lab Data Lab results reviewed: Yes I reviewed the patient's lab results. Result diagrams: 11/29/19 00:14 11/29/19 00:14 Labs: Lab Results 11/29/19 11/29/19 11/29/19 Range/Units 00:14 00:14 00:55 WBC 11.5 H (4.5-11.0) X10^3/uL RBC 3.51 L (4.5-5.9) X10^6/uL Hgb 14.3 (13.5-17.5) g/dL Hct 41.0 (41-53) % MCV 116.9 H (80-100) fL MCH 40.7 H (26-34) PG MCHC 34.8 (30-36) % RDW 15.8 H (11.6-14.8) % Plt Count 306 (150-400) X10^3/uL Neut % (Auto) 83.5 H (50-75) % Lymph % (Auto) 8.9 L (25-40) % [place] % (Auto) 7.1 (3-14) % Eos % (Auto) 0.2 L (2-4) % Baso % (Auto) 0.3 (0-2) % Neut # (Auto) 9600 H (6872-9427) /uL Lymph # (Auto) 1000 L (8363-8037) /uL [place] # (Auto) 800 (0-900) /uL Eos # (Auto) 0 (0-450) /uL Baso # (Auto) 0 (0-100) /uL RBC Morphology See below Anisocytosis 1+ H Macrocytosis 2+ H Sodium 143 (137-145) mmol/L Potassium 3.4 (3.4-5.1) mmol/L Chloride 99 (98-107) mmol/L Carbon Dioxide 28 (22-32) mmol/L BUN 23 H (9-20) mg/dL Creatinine 1.40 H (0.66-1.25) mg/dL Estimated GFR 50.2 L (>60) mL/min BUN/Creatinine Ratio 16.4 (6-22) Glucose 286 H (80-110) mg/dL Calcium 11.6 H (8.4-10.2) mg/dL Total Bilirubin 1.1 (0.2-1.3) mg/dL AST 28 (17-59) IU/L ALT 21 (<50) IU/L Alkaline Phosphatase 104 (38-126) U/L Troponin I 0.097 H (0.01-0.034) ng/mL Total Protein 9.4 H (6.3-8.2) g/dL Albumin 5.0 (3.5-5.0) g/dL Globulin 4.4 H (1.7-4.1) g/dL Albumin/Globulin Ratio 1.1 (1.0-2.8) Lipase 123 (23-300) U/L Influenza A (RT-PCR) Flu a negative (NEGATIVE) Influenza B (RT-PCR) Flu b negative (NEGATIVE) 11/29/19 11/29/19 Range/Units 02:22 04:34 WBC (4.5-11.0) X10^3/uL RBC (4.5-5.9) X10^6/uL Hgb (13.5-17.5) g/dL Hct (41-53) % MCV (80-100) fL MCH (26-34) PG MCHC (30-36) % RDW (11.6-14.8) % Plt Count (150-400) X10^3/uL Neut % (Auto) (50-75) % Lymph % (Auto) (25-40) % [place] % (Auto) (3-14) % Eos % (Auto) (2-4) % Baso % (Auto) (0-2) % Neut # (Auto) (4672-2510) /uL Lymph # (Auto) (8106-4408) /uL [place] # (Auto) (0-900) /uL Eos # (Auto) (0-450) /uL Baso # (Auto) (0-100) /uL RBC Morphology Anisocytosis Macrocytosis Sodium (137-145) mmol/L Potassium (3.4-5.1) mmol/L Chloride (98-107) mmol/L Carbon Dioxide (22-32) mmol/L BUN (9-20) mg/dL Creatinine (0.66-1.25) mg/dL Estimated GFR (>60) mL/min BUN/Creatinine Ratio (6-22) Glucose (80-110) mg/dL Calcium (8.4-10.2) mg/dL Total Bilirubin (0.2-1.3) mg/dL AST (17-59) IU/L ALT (<50) IU/L Alkaline Phosphatase (38-126) U/L Troponin I 0.093 H 0.100 H (0.01-0.034) ng/mL Total Protein (6.3-8.2) g/dL Albumin (3.5-5.0) g/dL Globulin (1.7-4.1) g/dL Albumin/Globulin Ratio (1.0-2.8) Lipase (23-300) U/L Influenza A (RT-PCR) (NEGATIVE) Influenza B (RT-PCR) (NEGATIVE) Point of Care Testing Glucose POC 328 Point of care testing: Point of Care Testing Glucose POC [address] scan - abdomen/pelvis: Radiologist's Impression: Urinary bladder wall thickening raise the possibility of cystitis. Clinical laboratory correlation recommended. No urinary tract stone or obstruction Other chronic changes including left renal cyst.. Pancreatic parenchymal cystic lesion, prior cholecystectomy and previous rectal surgery again noted, unchanged ECG Data Attestation: I personally reviewed and interpreted this ECG as follows: Prior ECG tracings: not available for review Interpretation: Ventricular pace Rate of 100 MDM Narrative Medical decision making narrative: Patient received multiple doses of different pain medication with the Compazine seeming to work the best for his nausea. The CT scan his abdomen showed no signs of obstruction. He is ventricularly paced. Does have an elevated troponin however it is unchanged after 3 rechecks. This could very well be secondary to his kidney disease or potentially even the pacing. 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 I do have low suspicion for ACS. He is not having chest pain. His flu is negative. He received fluids. After the Compazine he was able to tolerate oral intake. Has a benign exam otherwise. He is not in DKA. I have no indication for antibiotics. Patient was asking to go home. He states he feels better. We discussed return precautions and follow-up instructions. He expressed understanding and agreement plan. Discharge Plan Departure Patient Disposition: Home Clinical Impression: Nausea and vomiting Qualifiers: Vomiting type: unspecified Vomiting Intractability: non-intractable Qualified Code(s): R11.2 - Nausea with vomiting, unspecified Discharge Date/Time: 11/29/19 05:25 Instructions: DI for Nausea -- Adult, DI for Vomiting -- Adult Activity Restrictions/Additional Instructions: Recommend that you take your medications like we discussed. Be sure to increase your fluid intake. If your symptoms worsen you develop any new symptoms or are unable to tolerate any oral fluids please return to the emergency department. Contact your primary provider for follow-up Prescriptions: New prochlorperazine maleate [Compazine] 10 mg tablet 10 mg PO Q8H PRN (Reason: nausea and vomiting) Qty: 10 RF: 0 No Action carvedilol 25 mg Tablet 25 mg PO BID RF: 0 cetirizine 10 mg Tablet 10 mg PO DAILY PRN (Reason: Allergy Symptoms) RF: 0 lisinopril 20 mg Tablet 20 mg PO DAILY RF: 0 potassium chloride [K-Tab] 10 mEq Tablet Extended Release 20 meq PO DAILY RF: 0 allopurinol 100 mg Tablet 150 mg PO DAILY RF: 0 tamsulosin 0.4 mg Capsule 0.4 mg PO BID RF: 0 Humulin N NPH U-100 Insulin 100 unit/mL Suspension 16 units subcut DAILY RF: 0 hydrochlorothiazide 25 mg Tablet 25 mg PO DAILY RF: 0 furosemide 20 mg Tablet 20 mg PO DAILY PRN (Reason: Weight above 244#) RF: 0 fluticasone propionate 50 mcg/actuation [place],Suspension 1 spray INTRANASAL DAILY PRN (Reason: Allergy Symptoms) RF: 0 amlodipine 10 mg tablet 10 mg PO DAILY RF: 0 rosuvastatin 5 mg tablet RF: 0 cyanocobalamin (vitamin B-12) [Vitamin B-12] 1,000 mcg tablet 1,000 mcg PO DAILY RF: 0 azathioprine 50 mg Tablet 100 mg PO DAILY RF: 0 magnesium oxide 400 mg (241.3 mg magnesium) tablet 400 mg PO BID RF: 0 ferrous gluconate 324 mg (38 mg iron) tablet 324 mg PO DAILY RF: 0 Referrals: Joel Solraes MD [Primary Care Provider] -
[2019-11-29 00:34] LABS: Add Manual Diff / Slide Review NO; Basophils Absolute Auto 0 /uL (0-100); Basophils Percent Auto 0.3 % (0-2); Eosinophils Absolute Auto 0 /uL (0-450); Eosinophils Percent Auto 0.2 % (2-4); Hemoglobin 14.3 g/dL (13.5-17.5); Lymphocytes Absolute Auto 1000 /uL (1100-4500); Lymphocytes Percent Auto 8.9 % (25-40); Mean Corpuscular HGB Conc 34.8 % (30-36); Mean Corpuscular Hemoglobin 40.7 PG (26-34); Mean Corpuscular Volume 116.9 fL (80-100); Monocytes Absolute Auto 800 /uL (0-900); Monocytes Percent Auto 7.1 % (3-14); Neutrophils Absolute Auto 9600 /uL (1500-7000); Neutrophils Percent Auto 83.5 % (50-75); Platelet Count 306 X10^3/uL (150-400); Red Blood Cell Count 3.51 X10^6/uL (4.5-5.9); Red Cell Distribution Width 15.8 % (11.6-14.8); White Blood Cell Count 11.5 X10^3/uL (4.5-11.0)
[2019-11-29 00:36] LABS: Alanine Aminotransferase 21 IU/L (<50); Albumin Globulin Ratio 1.1 (1.0-2.8); Alkaline Phosphatase 104 U/L (38-126); Aspartate Aminotransferase 28 IU/L (17-59); BUN Creatinine Ratio 16.4 (6-22); Bilirubin Total 1.1 mg/dL (0.2-1.3); Blood Urea Nitrogen 23 mg/dL (9-20); Calcium 11.6 mg/dL (8.4-10.2); Carbon Dioxide 28 mmol/L (22-32); Chloride 99 mmol/L (98-107); Estimated Glomerular Filt Rate 50.2 mL/min (>60); Globulin 4.4 g/dL (1.7-4.1); Glucose 286 mg/dL (80-110); HEMOLYSIS < 15 (0-50); Lipase 123 U/L (23-300); Potassium 3.4 mmol/L (3.4-5.1); Sodium 143 mmol/L (137-145); Total Protein 9.4 g/dL (6.3-8.2)
[2019-11-29] MEDS: SODIUM CHLORIDE 0.9% 1,000 ML 1000 ML IV (00:41)
[2019-11-29] MEDS: ONDANSETRON 4 MG/2 ML INJ IV (00:41)
[2019-11-29 00:48] LABS: Troponin I 0.097 ng/mL (0.01-0.034)
[2019-11-29 00:51] LABS: Anisocytosis 1+; Macrocytosis 2+
[2019-11-29] MEDS: METOCLOPRAMIDE 10 MG/2 ML INJ IV (01:20)
[2019-11-29 01:32] LABS: Influenza A - CEPHEID Flu A NEGATIVE (NEGATIVE); Influenza B - CEPHEID Flu B NEGATIVE (NEGATIVE)
[2019-11-29 01:37] VITALS: BP 177/80; PULSE 90; RESP 20; O2SAT 97
--- NOTE | 2019-11-29 02:04 | DI.CT.S_ITS ---
PROCEDURE: CT ABDOMEN PELVIS W CON INDICATIONS: Generalized abdominal pain with vomiting TECHNIQUE: After the administration of intravenous contrast, 5 mm thick sections acquired from the diaphragm to the symphysis. 5 mm coronal and sagittal reformats were acquired. For radiation dose reduction, the following was used: automated exposure control, adjustment of mA and/or kV according to patient size. COMPARISON: [facility], CT, CT ABDOMEN PELVIS W CON, 11/24/2018, 6:57. [facility], CT, CT ABDOMEN PELVIS W CON, 10/18/2018, 23:09. FINDINGS: Image quality: Excellent. ABDOMEN: Lung bases: Lung bases are clear. Heart size is normal. Small hiatal hernia. Solid organs: There is diffuse hepatic fatty infiltration. Liver is normal in size and enhancement. Gallbladder is surgically absent. Biliary system is non dilated. Pancreas enhances normally. There are a couple of cysts in the pancreatic body measuring 1.5 cm cyst and 7 mm. Both are unchanged in size. Spleen is normal in size and enhancement. No adrenal nodules. Kidneys demonstrate normal size and enhancement, without hydronephrosis. There are a couple of left renal cortical cyst. Peritoneum and bowel: Bowel loops demonstrate normal wall thickness and caliber. There are scattered colonic diverticula. No CT findings to suggest acute diverticulitis. Normal appendix. Postsurgical changes in rectum. No free fluid or air. Nodes and vessels: No retroperitoneal or mesenteric adenopathy by size criteria. Aorta and inferior vena cava are normal in size. Miscellaneous: No ventral hernias. PELVIS: Genitourinary: Bladder wall is thickened with mild stranding suggesting cystitis. Enlarged prostate. Miscellaneous: No inguinal hernias or adenopathy. Bones: No suspicious bony lesions. No vertebral body compression fractures. IMPRESSION: 1. Bladder wall is thickened with mild stranding suggesting cystitis. 2. Enlarged prostate. 3. Diverticulosis without diverticulitis 4. Hepatic steatosis. 5. Stable pancreatic cysts. No significant discrepancy with the security shift manager radiology preliminary report. Dictated by: Alirio Adams M.D. on 11/29/2019 at 7:58 Approved by: Alirio Adams M.D. on 11/29/2019 at 8:34
[2019-11-29 02:55] LABS: Troponin I 0.093 ng/mL (0.01-0.034)
[2019-11-29 03:03] VITALS: BP 186/86; PULSE 100; RESP 22; O2SAT 94
[2019-11-29 04:09] VITALS: BP 161/74; PULSE 111; RESP 22; O2SAT 96
[2019-11-29 04:10] VITALS: BP 161/74; PULSE 110
[2019-11-29] MEDS: PROCHLORPERAZINE 10 MG/2 ML VIAL IV (04:10)
[2019-11-29 05:00] VITALS: BP 166/84; PULSE 114; RESP 18; O2SAT 96
[2019-11-29] MEDS: ONDANSETRON 4 MG ODT PREPACK 1 BOTTLE MISC (05:27)
== END 2019-11-29 05:25 | disposition home or self-care (01) ==
PROVIDERS: Emergency Provider Emergency Medicine; PCP Internal Medicine
DX: R11.2 Nausea with vomiting, unspecified (principal); R10.9 Unspecified abdominal pain; R50.9 Fever, unspecified; R19.7 Diarrhea, unspecified; R05 Cough
CPT/HCPCS: 36415; 74177; 80053; 82962; 83690; 84484; 85025; 87502; 93005; 96361; 96374; 96375; 99285; J0780; J2405; J2765; Q9967

== ENCOUNTER → 2019-12-07 08:23 | Outpatient (CLI) | payer MEDICARE, SELFPAY ==
--- NOTE | 2019-12-07 | DI.US.S_ITS ---
PROCEDURE: US RENAL COMPLETE INDICATIONS: URINARY RETENTION TECHNIQUE: Real-time scanning was performed of the kidneys and bladder, with image documentation. COMPARISON: None. FINDINGS: Kidneys: Kidneys are normal in size. Right kidney measures 13.4 cm long; left kidney measures 14.8 cm long. Right renal cortical thickness is 1.7 cm; left renal cortical thickness is 2.2 cm. Renal cortical echotexture is normal. No hydronephrosis or nephrolithiasis. No suspicious solid mass lesions. There is a 2.8 x 4.1 x 3.7 cm simple appearing right renal cortical cysts, and on the left there is a 4.2 x 2.4 x 3.6 cm simple appearing renal cortical cyst. Bladder: Pre-void bladder volume is 195 mL. Post-void residual is essentially the same with patient unable to void (uses a catheter to empty the bladder lumen).. Pre-void images demonstrate no intraluminal masses or stones. On pre-void images, neither ureteral jets are noted with color Doppler interrogation. (Of note, ureteral jets may not be detectable in up to 25% of cases due to insufficient differences in specific gravity between ureteral and bladder urine). Miscellaneous: No free pelvic fluid. IMPRESSION: Bilateral single renal cortical cysts as discussed, no hydronephrosis or nephrolithiasis found. Bladder volume at initiation of the examination is normal at 195 cc. The patient is unable to void without self catheterization. Dictated by: Mark Ramos M.D. on 12/07/2019 at 11:33 Approved by: Mark Ramos M.D. on 12/07/2019 at 11:35
== END ==
PROVIDERS: PCP Internal Medicine; Referring Provider Specialist; Visit Provider Specialist
DX: R33.9 Retention of urine, unspecified (principal); N28.1 Cyst of kidney, acquired
CPT/HCPCS: 76770

== ENCOUNTER → 2020-03-14 13:42 | Outpatient (CLI) | payer MEDICARE, SELFPAY ==
[2020-03-14 13:48] LABS: RBC Urine None Seen (0-5/HPF)
[2020-03-14 14:30] LABS: Appearance Urine UA CLEAR; Bilirubin Urine UA NEGATIVE (NEGATIVE); Color Urine UA YELLOW; Glucose Urine UA NEGATIVE (Negative); Ketones Urine UA NEGATIVE (NEGATIVE); Leukocyte Esterase Urine UA NEGATIVE (NEGATIVE); Nitrite Urine UA POSITIVE (Negative); Occult Blood Urine UA 1+ (Negative); Protein Urine UA TRACE (Negative); Urobilinogen Urine UA 0.2 E.U./dL (0.2); pH Urine UA 5.5 (4.5-8.0)
[2020-03-14 14:44] LABS: Bacteria Urine Many (>30); Culture Indicated Urine Specimen Cultured; WBC Urine 5-10/HPF (0-5/HPF)
== END ==
PROVIDERS: PCP Internal Medicine; Referring Provider Specialist; Visit Provider Specialist
DX: N39.0 Urinary tract infection, site not specified (principal)
CPT/HCPCS: 81001; 87077; 87086; 87186

== ENCOUNTER 2020-03-25 11:44 | Emergency (ER) | payer MEDICARE, SELFPAY ==
[2020-03-25 11:52] VITALS: BP 176/86; PULSE 86; RESP 19; TEMP 36.6; O2SAT 100; BMI 29.8
--- NOTE | 2020-03-25 12:08 | DI.RAD.S_ITS ---
PROCEDURE: XR ACUTE ABDOMEN SERIES INDICATIONS: s/p rectal cancer, celiac disease, nausea and vomiting TECHNIQUE: One view chest and two views of the abdomen were acquired. COMPARISON: [facility], , XR ACUTE ABDOMEN SERIES, 11/24/2018, 6:22. FINDINGS: Surgical changes and devices: Left chest wall pacemaker leads are seen in the region of right atrium and right ventricle. Surgical clips are noted in gallbladder fossa. Chest: Lungs are clear. Heart size is normal. No pleural effusions. No pneumoperitoneum. Abdomen: Bowel gas pattern is normal. No suspicious calcifications. Visualized solid organ contours appear normal. Bones: No suspicious bony lesions. IMPRESSION: No evidence of bowel obstruction or gross free air. No acute cardiopulmonary pathology. Dictated by: Vinnie Purcell M.D. on 03/25/2020 at 13:09 Approved by: Vinnie Purcell M.D. on 03/25/2020 at 13:12
--- NOTE | 2020-03-25 12:13 | ED.NAVMDI ---
HPI - Nausea/Vomiting/Diarrhea General Chief complaint: Nausea/Vomiting/Diarrhea Stated complaint: Throwing Up, Fatigued, Chills, Extreme Nausea Time Seen by Provider: 03/25/20 11:57 Source: patient Mode of arrival: Ambulatory Limitations: no limitations History of Present Illness HPI Narrative: CC: Nausea and vomiting HPI: The patient is a 69-year-old male who states that he has been having trouble sleeping and will at approximately 5:00 a.m. this morning developed an upset stomach unrelieved by Tums or ingesting soup broth. He developed intense persistent recurrent nausea and vomiting which turned into dry heaves. He has had diffuse abdominal pain from the vomiting. He has a past history of rectal cancer which was resected, had a diverting colostomy that was that was reanastomosed. This morning he had 3-4 bowel movements without diarrhea blood or melena. He admits to a history of celiac disease. He denies a history of Crohn's disease or ulcerative colitis irritable bowel syndrome. He has had a 1 episode of diverticulitis with lower GI bleed 1 year ago. He has had chills and sweats but no fever. He denies any headache, chest pain, shortness of breath or cough but has had just generalized weakness with dizziness and lightheadedness. He denies any back pain any abdominal pain any troubles urinating. Is a former smoker but did not smoke cigarettes. Related Data Home Medications Medication Instructions Recorded Confirmed allopurinol 150 mg PO DAILY 10/18/18 06/13/19 carvedilol 25 mg PO BID 10/18/18 06/13/19 cetirizine 10 mg PO DAILY PRN 10/18/18 11/24/18 fluticasone propionate 1 spray INTRANASAL DAILY PRN 10/18/18 11/24/18 furosemide 20 mg PO DAILY PRN 10/18/18 06/13/19 hydrochlorothiazide 25 mg PO DAILY 10/18/18 06/13/19 insulin NPH isoph U-100 human 16 units SUBCUT DAILY 10/18/18 11/24/18 [Humulin N NPH U-100 Insulin] lisinopril 20 mg PO DAILY 10/18/18 06/13/19 potassium chloride [K-Tab] 20 meq PO DAILY 10/18/18 06/13/19 tamsulosin 0.4 mg PO BID 10/18/18 06/13/19 azathioprine 100 mg PO DAILY 11/24/18 06/13/19 cyanocobalamin (vitamin B-12) 1,000 mcg PO DAILY 11/24/18 11/24/18 [Vitamin B-12] ferrous gluconate 324 mg PO DAILY 11/24/18 11/24/18 magnesium oxide 400 mg PO BID 11/24/18 11/24/18 amlodipine 10 mg PO DAILY 06/13/19 06/13/19 rosuvastatin mg 06/13/19 Previous Rx's Medication Instructions Recorded prochlorperazine maleate 10 mg PO Q8H PRN #10 tab 11/29/19 [Compazine] diphenhydramine HCl [Benadryl 25 mg PO Q6H PRN #20 tab 03/25/20 Allergy] ondansetron HCl [Zofran] 8 mg PO Q8H PRN #12 tab 03/25/20 prochlorperazine [Compazine] 25 mg NM Q12H PRN #12 each 03/25/20 Allergies Allergy/AdvReac Type Severity Reaction Status Date / Time fluorouracil Allergy Verified 03/25/20 12:22 Review of Systems Review of Systems Narrative: Review of systems are all negative except for those mentioned in the history of present illness. Patient History Medical History (Updated 03/25/20 @ 14:26 by Tien Espinal MD) Celiac disease (Acute) Congestive heart failure (Acute) Diabetes (Acute) Pacemaker (Acute) Rectal cancer (Acute) Surgical History H/O colectomy (Acute) Social History lives independently: Yes Smoking Status: Never smoker Smoking Status: Never smoker alcohol intake frequency: holidays/special occasions only Substance Use Type: marijuana Exam Narrative Exam Narrative: PHYSICAL EXAM: CONSTITUTIONAL: Awake, arousable. He appears very fatigued leaning forward falling asleep. Does not look toxic or ill at this time. HEAD: AT/NC EENT: PERRL, FROM of eyes, NOSE:No epistaxis or nasal drainage MOUTH:Oral mucosa is moist and pink, . NECK: Supple, no obvious JVD, Trachea is midline without stridor, no palpable LN. SPINE: Palpationof the cervical, Thoracic, Lumbar or Sacral spine reveals no gross deformity or tenderness. No CVA tenderness. THORAX: No deformity, retractions, chest wall tenderness. LUNGS: Clear, symmetrical breath sounds without respiratory distress. HEART: Normal heart tones, regular rhythm and rate without murmur. ABDOMEN: Soft, non-tender, . N appreciable guarding, rebound, rigidity or palpable mass. EXTREMITIES: No edema, deformity, tenderness or cyanosis. SKIN: No rash, bruising, petechiae or purpura. NEURO: Awake, alert, oriented, conversive, cranial nerves II-XII are symmetrical , moves all 4 extremities Initial Vital Signs Initial Vital Signs: Vital Signs Temperature 97.9 F 03/25/20 11:52 Pulse Rate 86 03/25/20 11:52 Respiratory Rate 19 03/25/20 11:52 Blood Pressure 176/86 H 03/25/20 11:52 Pulse Oximetry 100 03/25/20 11:52 Course Course Course Narrative: 1219: The patient has a a an electronic ventricular pacemaker with wide complexes no acute diagnostic ST segment changes noted. QTC is 542 milliseconds left axis deviation QRS is 243 milliseconds duration secondary to the pacing. Ventricular rate is 75. 1413: The patient has not vomited since receiving the Compazine. The patient will be discharged home. His laboratory chemistries are basically within normal limits and he is not having any abdominal pain or discomfort. The radiologist's read his acute abdominal series is no evidence of bowel obstruction or gross free air. There is no acute cardiopulmonary pathology. Orders Ordered: ED Orders 03/25/20 11:59 Complete Blood Count AUTO DIFF Stat Comprehensive Metabolic Panel Stat Lactate (Lactic Acid) Stat Lactate Dehydrogenase Stat Lipase Stat 03/25/20 12:08 XR acute abdomen series Stat Discontinued Medications Dicyclomine HCl (Bentyl) 20 mg PO NOW ONE Stop: 03/25/20 13:11 Diphenhydramine HCl (Benadryl) 25 mg IV NOW ONE Stop: 03/25/20 13:21 Last Admin: 03/25/20 13:29 Dose: 25 mg Documented by: EDUARDO Ondansetron HCl 8 mg/ Sodium (Chloride) 54 mls @ 216 mls/hr IV NOW ONE Stop: 03/25/20 12:09 Last Infusion: 03/25/20 12:35 Dose: 0 mls/hr Documented by: Admin: 03/25/20 12:19 Dose: 216 mls/hr Documented by: EDUARDO Sodium Chloride (Normal Saline 0.9%) 1,000 mls @ 1,000 mls/hr IV BOLUS ONE Stop: 03/25/20 13:07 Last Infusion: 03/25/20 13:55 Dose: 0 mls/hr Documented by: Admin: 03/25/20 12:21 Dose: 1,000 mls/hr Documented by: EDUARDO Prochlorperazine (Compazine) 10 mg IV NOW ONE Stop: 03/25/20 13:21 Last Admin: 03/25/20 13:28 Dose: 10 mg Documented by: EDUARDO Vital Signs Vital signs: Vital Signs - 8 hr 03/25/20 11:52 03/25/20 12:50 03/25/20 13:20 Temperature 97.9 F Pulse Rate 86 68 80 Respiratory Rate 19 23 13 Blood Pressure 176/86 H Blood Pressure [Right Arm] 159/74 H 173/87 H Pulse Oximetry 100 98 95 03/25/20 14:00 Temperature Pulse Rate 83 Respiratory Rate 24 Blood Pressure Blood Pressure [Right Arm] 181/81 H Pulse Oximetry 94 MDM - Nausea/Vomiting/Diarrhea Medical Records Attestation: I reviewed the patient's medical records. Lab Data Attestation: I reviewed the patient's lab results. Result diagrams: 03/25/20 11:59 03/25/20 11:59 Labs: Lab Results 03/25/20 03/25/20 03/25/20 Range/Units 11:59 11:59 11:59 WBC 10.3 (4.5-11.0) X10^3/uL RBC 3.58 L (4.5-5.9) X10^6/uL Hgb 13.6 (13.5-17.5) g/dL Hct 38.7 L (41-53) % MCV 108.3 H (80-100) fL MCH 38.1 H (26-34) PG MCHC 35.2 (30-36) % RDW 16.6 H (11.6-14.8) % Plt Count 260 (150-400) X10^3/uL Neut % (Auto) 91.6 H (50-75) % Lymph % (Auto) 4.2 L (25-40) % [place] % (Auto) 3.6 (3-14) % Eos % (Auto) 0.3 L (2-4) % Baso % (Auto) 0.3 (0-2) % Neut # (Auto) 9400 H (3676-6500) /uL Lymph # (Auto) 400 L (0519-4306) /uL [place] # (Auto) 400 (0-900) /uL Eos # (Auto) 0 (0-450) /uL Baso # (Auto) 0 (0-100) /uL Sodium 139 (137-145) mmol/L Potassium 3.6 (3.4-5.1) mmol/L Chloride 99 (98-107) mmol/L Carbon Dioxide 30 (22-32) mmol/L BUN 25 H (9-20) mg/dL Creatinine 1.07 (0.66-1.25) mg/dL Estimated GFR > 60.0 (>60) mL/min BUN/Creatinine Ratio 23.4 H (6-22) Glucose 230 H (80-110) mg/dL Lactate 1.7 (0.7-2.1) mmol/L Calcium 10.4 H (8.4-10.2) mg/dL Total Bilirubin 1.0 (0.2-1.3) mg/dL AST 34 (17-59) IU/L ALT 22 (<50) IU/L Alkaline Phosphatase 96 (38-126) U/L Lactate Dehydrogenase 484 (313-618) U/L Total Protein 8.7 H (6.3-8.2) g/dL Albumin 4.8 (3.5-5.0) g/dL Globulin 3.9 (1.7-4.1) g/dL Albumin/Globulin Ratio 1.2 (1.0-2.8) Lipase 81 (23-300) U/L Discharge Plan Departure Patient Disposition: Home Clinical Impression: H/O malignant neoplasm of rectum, Celiac disease, Dehydration Nausea & vomiting Qualifiers: Vomiting type: unspecified Vomiting Intractability: non-intractable Qualified Code(s): R11.2 - Nausea with vomiting, unspecified Discharge Date/Time: 03/25/20 14:38 Instructions: DI for Dehydration -- Adult, DI for Nausea -- Adult, DI for Vomiting -- Adult Activity Restrictions/Additional Instructions: 1. You need to follow-up in be re-evaluated by your primary care physician in 48-72 hours. 2. If you develop recurrent persistent nausea and vomiting, vomiting blood, diarrhea with dark blood in your stools increasing abdominal pain feeling faint or passing-out with rapid heart rate fever you need to return to the emergency department to be re-evaluated. 3. For your persistent intermittent nausea and vomiting take Zofran 8 mg orally every 6-8 hours. If this does not work take benadryl 25 mg orally followed by a rectal suppository of compazine. 4. Drink 2-4 liters of fluid and advance diet as tolerated. Prescriptions: New ondansetron HCl [Zofran] 8 mg tablet 8 mg PO Q8H PRN (Reason: nausea and vomiting) Qty: 12 RF: 0 diphenhydramine HCl [Benadryl Allergy] 25 mg tablet 25 mg PO Q6H PRN (Reason: nausea and vomiting) Qty: 20 RF: 0 prochlorperazine [Compazine] 25 mg suppository 25 mg NM Q12H PRN (Reason: nausea and vomiting) Qty: 12 RF: 0 No Action carvedilol 25 mg Tablet 25 mg PO BID RF: 0 cetirizine 10 mg Tablet 10 mg PO DAILY PRN (Reason: Allergy Symptoms) RF: 0 lisinopril 20 mg Tablet 20 mg PO DAILY RF: 0 potassium chloride [K-Tab] 10 mEq Tablet Extended Release 20 meq PO DAILY RF: 0 allopurinol 100 mg Tablet 150 mg PO DAILY RF: 0 tamsulosin 0.4 mg Capsule 0.4 mg PO BID RF: 0 Humulin N NPH U-100 Insulin 100 unit/mL Suspension 16 units subcut DAILY RF: 0 hydrochlorothiazide 25 mg Tablet 25 mg PO DAILY RF: 0 furosemide 20 mg Tablet 20 mg PO DAILY PRN (Reason: Weight above 244#) RF: 0 fluticasone propionate 50 mcg/actuation [place],Suspension 1 spray INTRANASAL DAILY PRN (Reason: Allergy Symptoms) RF: 0 amlodipine 10 mg tablet 10 mg PO DAILY RF: 0 rosuvastatin 5 mg tablet RF: 0 cyanocobalamin (vitamin B-12) [Vitamin B-12] 1,000 mcg tablet 1,000 mcg PO DAILY RF: 0 azathioprine 50 mg Tablet 100 mg PO DAILY RF: 0 magnesium oxide 400 mg (241.3 mg magnesium) tablet 400 mg PO BID RF: 0 ferrous gluconate 324 mg (38 mg iron) tablet 324 mg PO DAILY RF: 0 prochlorperazine maleate [Compazine] 10 mg tablet 10 mg PO Q8H PRN (Reason: nausea and vomiting) Qty: 10 RF: 0 Referrals: Joel Solares MD [Primary Care Provider] -
[2020-03-25] MEDS: ONDANSETRON 8 MG in SODIUM CHLORIDE 0.9% 50 ML 216 ML IV (12:19)
[2020-03-25] MEDS: SODIUM CHLORIDE 0.9% 1,000 ML 1000 ML IV (12:21)
[2020-03-25 12:22] LABS: Add Manual Diff / Slide Review NO; Basophils Absolute Auto 0 /uL (0-100); Basophils Percent Auto 0.3 % (0-2); Eosinophils Absolute Auto 0 /uL (0-450); Eosinophils Percent Auto 0.3 % (2-4); Hematocrit 38.7 % (41-53); Hemoglobin 13.6 g/dL (13.5-17.5); Lymphocytes Absolute Auto 400 /uL (1100-4500); Lymphocytes Percent Auto 4.2 % (25-40); Mean Corpuscular HGB Conc 35.2 % (30-36); Mean Corpuscular Hemoglobin 38.1 PG (26-34); Mean Corpuscular Volume 108.3 fL (80-100); Monocytes Absolute Auto 400 /uL (0-900); Monocytes Percent Auto 3.6 % (3-14); Neutrophils Absolute Auto 9400 /uL (1500-7000); Neutrophils Percent Auto 91.6 % (50-75); Platelet Count 260 X10^3/uL (150-400); Red Blood Cell Count 3.58 X10^6/uL (4.5-5.9); Red Cell Distribution Width 16.6 % (11.6-14.8); White Blood Cell Count 10.3 X10^3/uL (4.5-11.0)
[2020-03-25 12:27] LABS: Lactate (Lactic Acid) 1.7 mmol/L (0.7-2.1)
[2020-03-25 12:28] LABS: Alanine Aminotransferase 22 IU/L (<50); Albumin 4.8 g/dL (3.5-5.0); Albumin Globulin Ratio 1.2 (1.0-2.8); Alkaline Phosphatase 96 U/L (38-126); Aspartate Aminotransferase 34 IU/L (17-59); BUN Creatinine Ratio 23.4 (6-22); Blood Urea Nitrogen 25 mg/dL (9-20); Calcium 10.4 mg/dL (8.4-10.2); Carbon Dioxide 30 mmol/L (22-32); Chloride 99 mmol/L (98-107); Estimated Glomerular Filt Rate > 60.0 mL/min (>60); Globulin 3.9 g/dL (1.7-4.1); Glucose 230 mg/dL (80-110); HEMOLYSIS < 15 (0-50); Lactate Dehydrogenase 484 U/L (313-618); Lipase 81 U/L (23-300); Potassium 3.6 mmol/L (3.4-5.1); Sodium 139 mmol/L (137-145); Total Protein 8.7 g/dL (6.3-8.2)
[2020-03-25 12:50] VITALS: BP 159/74; PULSE 68; RESP 23; O2SAT 98
[2020-03-25 13:20] VITALS: BP 173/87; PULSE 80; RESP 13; O2SAT 95
[2020-03-25] MEDS: PROCHLORPERAZINE 10 MG/2 ML VIAL IV (13:28)
[2020-03-25] MEDS: diphenhydrAMINE 50 MG/ML VIAL 25 MG IV (13:29)
[2020-03-25 14:00] VITALS: BP 181/81; PULSE 83; RESP 24; O2SAT 94
== END 2020-03-25 14:38 | disposition home or self-care (01) ==
PROVIDERS: Emergency Provider Emergency Medicine; PCP Internal Medicine
DX: R11.2 Nausea with vomiting, unspecified (principal); E86.0 Dehydration; K90.0 Celiac disease; Z95.0 Presence of cardiac pacemaker; I50.9 Heart failure, unspecified
CPT/HCPCS: 36415; 74022; 80053; 83605; 83615; 83690; 85025; 93005; 96365; 96375; 99284; J0780; J1200; J2405

== ENCOUNTER 2020-03-27 12:25 | Emergency (ER) | payer MEDICARE, SELFPAY ==
[2020-03-27 12:30] VITALS: BMI 28.0
[2020-03-27 12:38] VITALS: BP 154/81; PULSE 66; RESP 18; TEMP 36.7; O2SAT 96
[2020-03-27 13:00] VITALS: BP 153/81; PULSE 69; RESP 18; O2SAT 96
[2020-03-27] MEDS: ONDANSETRON 4 MG/2 ML INJ (13:04)
[2020-03-27] MEDS: SODIUM CHLORIDE 0.9% 1,000 ML 1000 ML IV ×2 (13:05→15:29)
[2020-03-27 13:16] LABS: Add Manual Diff / Slide Review NO; Basophils Absolute Auto 0 /uL (0-100); Basophils Percent Auto 0.2 % (0-2); Eosinophils Absolute Auto 0 /uL (0-450); Eosinophils Percent Auto 0.1 % (2-4); Hematocrit 37.8 % (41-53); Hemoglobin 13.3 g/dL (13.5-17.5); Lymphocytes Absolute Auto 500 /uL (1100-4500); Lymphocytes Percent Auto 4.6 % (25-40); Mean Corpuscular HGB Conc 35.1 % (30-36); Mean Corpuscular Hemoglobin 37.5 PG (26-34); Monocytes Absolute Auto 800 /uL (0-900); Neutrophils Absolute Auto 9000 /uL (1500-7000); Neutrophils Percent Auto 87.1 % (50-75); Platelet Count 260 X10^3/uL (150-400); Red Blood Cell Count 3.53 X10^6/uL (4.5-5.9); Red Cell Distribution Width 16.3 % (11.6-14.8); White Blood Cell Count 10.4 X10^3/uL (4.5-11.0)
[2020-03-27 13:29] LABS: Alanine Aminotransferase 26 IU/L (<50); Albumin 4.4 g/dL (3.5-5.0); Albumin Globulin Ratio 1.2 (1.0-2.8); Alkaline Phosphatase 82 U/L (38-126); Amylase 49 U/L (30-110); Aspartate Aminotransferase 47 IU/L (17-59); BUN Creatinine Ratio 20.1 (6-22); Blood Urea Nitrogen 27 mg/dL (9-20); Calcium 9.7 mg/dL (8.4-10.2); Carbon Dioxide 33 mmol/L (22-32); Chloride 97 mmol/L (98-107); Estimated Glomerular Filt Rate 52.9 mL/min (>60); Globulin 3.7 g/dL (1.7-4.1); Glucose 198 mg/dL (80-110); HEMOLYSIS < 15 (0-50); Lipase 53 U/L (23-300); Potassium 3.1 mmol/L (3.4-5.1); Sodium 138 mmol/L (137-145); Total Protein 8.1 g/dL (6.3-8.2)
[2020-03-27 13:30] LABS: Lactate (Lactic Acid) 1.6 mmol/L (0.7-2.1)
--- NOTE | 2020-03-27 13:42 | DI.CT.S_ITS ---
PROCEDURE: CT ABDOMEN PELVIS W CON INDICATIONS: abd pain, vomiting TECHNIQUE: After the administration of oral and intravenous contrast, 5 mm thick sections acquired from the diaphragms to the symphysis. 5 mm thick coronal and sagittal reformats were performed. For radiation dose reduction, the following was used: automated exposure control, adjustment of mA and/or kV according to patient size. COMPARISON: [facility], CT, CT ABDOMEN PELVIS W CON, 11/29/2019, 2:03. [facility], CT, CT ABDOMEN PELVIS W CON, 11/24/2018, 6:57. [facility], CT, CT ABDOMEN PELVIS W CON, 10/18/2018, 23:09. FINDINGS: Image quality: Diagnostic. ABDOMEN: Lung bases: Lung bases are clear. Heart size is normal. Solid organs: The liver is normal in size and continues to be hypodense when compared to the spleen. No definite liver lesions are evident. More focal prominent areas of fatty infiltration may be present along the gallbladder fossa and falciform ligament. The portal vein is patent. The gallbladder is surgically absent. There is no intrahepatic or extrahepatic biliary dilatation. The pancreas is unchanged. There continues to be an ovoid hypodense lesion it is partly exophytic involving the body of the pancreas that measures up to approximately 1.3 cm, which may be slightly smaller on the current study, but likely is unchanged, given differences in measurement technique. No new pancreatic lesions are evident. There is no peripancreatic inflammation. The adrenals and spleen are unchanged. Both kidneys are normal in size. There is no hydronephrosis. However, there is slight prominence of the proximal left ureter which is slightly more pronounced on the current study. No ureteral filling defects are evident. Bilateral renal cysts are noted. Perinephric edema is present bilaterally, which is likely senescent. The enhancement pattern of both kidneys is symmetric and within normal limits. Peritoneum and bowel: The stomach is within normal limits. The small bowel loops are nondilated. The colon appears to be within normal limits. Postoperative changes of the proximal colon are incidentally noted. The appendix is well-visualized and normal. There is no free fluid, loculated fluid collection or free air. Areas of mild colonic diverticulosis are present without surrounding inflammation evident to suggest diverticulitis. Nodes and vessels: No retroperitoneal or mesenteric adenopathy. However, there is a peripherally enhancing lymph node identified just below the aortic bifurcation, which measures approximately 1.3 cm in short axis (image 70, series 2), unchanged when compared to the prior examination. No additional similar-appearing lymph nodes are evident. Aorta and inferior vena cava are normal in caliber. There is aortic atherosclerosis. Bones: No acute fracture or suspicious osseous lesion is identified. Age-appropriate degenerative changes of the spine are noted. PELVIS: Genitourinary: Moderate thickening of the urinary bladder wall is identified. A small amount of air is contained on the anti-dependent aspect of the bladder. The prostate gland is borderline enlarged. Miscellaneous: No inguinal hernias or adenopathy. However, there is soft tissue thickening identified within the presacral space that surrounds the rectum, similar to the prior study. Postoperative changes at this location are present. No drainable or loculated fluid collection is appreciated. There is no free air. Bones: No suspicious bony lesions. No acute pelvic fractures are identified. IMPRESSION: 1. No definite acute abnormality is appreciated within the abdomen or pelvis. 2. Minimal colonic diverticulosis without diverticulitis. No bowel obstruction. 3. Hypodense lesions within the pancreas probably have not significantly changed. Continued followup is recommended. 4. Prominence of the urinary bladder wall probably is related to chronic bladder outlet obstruction. Please correlate clinically to exclude cystitis. 5. Enlarged lymph node below the aortic bifurcation is similar to prior studies. Followup on subsequent imaging is recommended. 6. Hepatic steatosis. 7. Postoperative changes of the rectum with presacral soft tissue thickening is similar to prior exams. There is no drainable fluid collection. Dictated by: Jesse Horan M.D. on 03/27/2020 at 13:07 Approved by: Jesse Horan M.D. on 03/27/2020 at 13:15
--- NOTE | 2020-03-27 13:55 | ED.NAVMDI ---
HPI - Nausea/Vomiting/Diarrhea <Lina Kamara, PROFESSOR OF MECHANICAL ENGINEERING-BC - Last Filed: 03/27/20 19:26> General Chief complaint: Nausea/Vomiting/Diarrhea Stated complaint: nausea 2-10 x3 days Time Seen by Provider: 03/27/20 12:40 Source: patient Mode of arrival: Ambulatory Limitations: no limitations History of Present Illness HPI Narrative: The patient is a 69-year-old male nonsmoker with history of diabetes, rectal cancer and celiac disease who presents with a chief complaint of nausea and vomiting. He was seen and evaluated at this facility on 03/25/2020 and was able to tolerate p.o. fluids after Compazine. He was given a prescription of Compazine, but was unfortunately unable to fill it for over 24 hours. He presents back to the emergency department today because he is ?feeling nauseous all the time and is unable to keep anything down p.o.. He states that he vomits several times a day. Denies any abdominal pain. States he feels incredibly gassy with loss of flatulence and burping. He denies any dysuria urgency or frequency, but states he has recently finish antibiotics for a urinary tract infection. He also denies any fevers but complains of some chills. Last thing that he took for nausea was Compazine at 12 hours prior to arrival. He says that he spoke with Dr. Solares, his primary care provider who referred him to the emergency department. He states he is taking his NPH insulin, but not checking his blood sugars. He states he never checks his blood sugars. Related Data Home Medications Medication Instructions Recorded Confirmed allopurinol 150 mg PO DAILY 10/18/18 06/13/19 carvedilol 25 mg PO BID 10/18/18 06/13/19 cetirizine 10 mg PO DAILY PRN 10/18/18 11/24/18 fluticasone propionate 1 spray INTRANASAL DAILY PRN 10/18/18 11/24/18 furosemide 20 mg PO DAILY PRN 10/18/18 06/13/19 hydrochlorothiazide 25 mg PO DAILY 10/18/18 06/13/19 insulin NPH isoph U-100 human 16 units SUBCUT DAILY 10/18/18 11/24/18 [Humulin N NPH U-100 Insulin] lisinopril 20 mg PO DAILY 10/18/18 06/13/19 potassium chloride [K-Tab] 20 meq PO DAILY 10/18/18 06/13/19 tamsulosin 0.4 mg PO BID 10/18/18 06/13/19 azathioprine 100 mg PO DAILY 11/24/18 06/13/19 cyanocobalamin (vitamin B-12) 1,000 mcg PO DAILY 11/24/18 11/24/18 [Vitamin B-12] ferrous gluconate 324 mg PO DAILY 11/24/18 11/24/18 magnesium oxide 400 mg PO BID 11/24/18 11/24/18 amlodipine 10 mg PO DAILY 06/13/19 06/13/19 rosuvastatin mg 06/13/19 Previous Rx's Medication Instructions Recorded prochlorperazine maleate 10 mg PO Q8H PRN #10 tab 11/29/19 [Compazine] diphenhydramine HCl [Benadryl 25 mg PO Q6H PRN #20 tab 03/25/20 Allergy] ondansetron HCl [Zofran] 8 mg PO Q8H PRN #12 tab 03/25/20 prochlorperazine [Compazine] 25 mg [place] Q12H PRN #12 each 03/25/20 amoxicillin-pot clavulanate 1 tab PO BID #20 tab 03/29/20 Allergies Allergy/AdvReac Type Severity Reaction Status Date / Time fluorouracil Allergy Verified 03/29/20 12:40 Review of Systems <SHUN Huizar - Last Filed: 03/27/20 19:26> Review of Systems Narrative: GENERAL: Denies chills, fatigue, malaise, fever, sweats. HEENT: Denies sinus pain, ear pain, sore throat, difficulty swallowing, dizziness. RESPIRATORY: Denies dyspnea, cough, wheezing, hemoptysis, sputum. CARDIOVASCULAR: Denies chest pain, palpitations, orthopnea, edema, GASTROINTESTINAL: See HPI : See HPI MUSCULOSKELETAL: denies weakness, joint pain, or bony pain SKIN: Denies rash, skin lesions, or other NEUROLOGIC: Denies weakness, headache, numbness, change in speech, confusion, seizures, incoordination. PSYCHIATRIC: No concerning psychosocial issues. 12 point review of systems is negative except for those stated above Patient History <SHUN Huizar - Last Filed: 03/27/20 19:26> Medical History Celiac disease (Acute) Congestive heart failure (Acute) Diabetes (Acute) Pacemaker (Acute) Rectal cancer (Acute) Surgical History H/O colectomy (Acute) Social History lives independently: Yes Smoking Status: Never smoker Smoking Status: Never smoker alcohol intake frequency: holidays/special occasions only Substance Use Type: marijuana Exam <SHUN Huizar - Last Filed: 03/27/20 19:26> Narrative Exam Narrative: GENERAL: This is a well-nourished, well-developed patient, in no acute distress HEAD: Atraumatic. Normocephalic. No temporal or scalp tenderness. EYES: Pupils equal round and reactive. Extraocular motions intact. No scleral icterus. No injection or drainage. ENT: Nose without bleeding, purulent drainage or septal hematoma. Throat without erythema, tonsillar hypertrophy or exudate. Uvula midline. Airway patent. NECK: Trachea midline. No JVD or lymphadenopathy. Supple, nontender, no meningeal signs. CARDIOVASCULAR: Regular rate and rhythm RESPIRATORY: Clear to auscultation. Breath sounds equal bilaterally. No wheezes, rales, or rhonchi. GASTROINTESTINAL: Abdomen soft, non-tender, nondistended. No hepato-splenomegaly, or palpable masses. No guarding. Hyperactive bowel sounds all 4 quadrants. EXTREMITIES: No clubbing, cyanosis, or edema. No joint tenderness, effusion, or edema noted. BACK: Nontender without deformity or crepitance. No flank tenderness. NEURO: AOx3. SKIN: No rash or erythema on visible skin Initial Vital Signs Initial Vital Signs: Vital Signs Temperature 98.0 F 03/27/20 12:38 Pulse Rate 66 03/27/20 12:38 Respiratory Rate 18 03/27/20 12:38 Blood Pressure 154/81 H 03/27/20 12:38 Pulse Oximetry 96 03/27/20 12:38 <Kathryn Wilks MD - Last Filed: 03/29/20 17:45> Initial Vital Signs Initial Vital Signs: Vital Signs Temperature 98.0 F 03/27/20 12:38 Pulse Rate 66 03/27/20 12:38 Respiratory Rate 18 03/27/20 12:38 Blood Pressure 154/81 H 03/27/20 12:38 Pulse Oximetry 96 03/27/20 12:38 Scores <DARIN Huizar - Last Filed: 03/27/20 19:26> GCS [place] coma scale eye opening: Spontaneous [place] coma scale verbal response: Orientated [place] coma scale motor response: Obey commands [place] coma scale total score: 15 Course <DARIN Huizar - Last Filed: 03/27/20 19:26> Orders Ordered: Discontinued Medications Sodium Chloride (Normal Saline 0.9%) 1,000 mls @ 1,000 mls/hr IV BOLUS ONE Stop: 03/27/20 13:51 Last Infusion: 03/27/20 14:27 Dose: 0 mls/hr Documented by: Admin: 03/27/20 13:05 Dose: 1,000 mls/hr Documented by: JUDITH Sodium Chloride (Normal Saline 0.9%) 1,000 mls @ 1,000 mls/hr IV BOLUS ONE Stop: 03/27/20 15:54 Last Infusion: 03/27/20 16:56 Dose: 0 mls/hr Documented by: Admin: 03/27/20 15:29 Dose: 1,000 mls/hr Documented by: JUDITH Potassium Chloride 20 meq/ (Sodium Chloride) 260 mls @ 130 mls/hr IV NOW ONE Stop: 03/27/20 16:55 Last Infusion: 03/27/20 16:56 Dose: 0 mls/hr Documented by: JUDITH Cosigned by: RSTONE Admin: 03/27/20 15:26 Dose: 130 mls/hr Documented by: JUIDTH Cosigned by: BTONER Ondansetron HCl (Zofran) 4 mg IV NOW ONE Stop: 03/27/20 12:53 Last Admin: 03/27/20 14:27 Dose: Not Given Documented by: JUDITH Potassium Chloride (Potassium Chloride) 40 meq PO NOW ONE Stop: 03/27/20 16:49 Last Admin: 03/27/20 16:51 Dose: 40 meq Documented by: JUDITH Prochlorperazine (Compazine) 10 mg IV NOW ONE Stop: 03/27/20 14:13 Last Admin: 03/27/20 14:18 Dose: 10 mg Documented by: JUDITH Vital Signs Vital signs: Vital Signs - 8 hr 03/27/20 12:38 03/27/20 13:00 03/27/20 14:18 Temperature 98.0 F Pulse Rate 66 69 68 Respiratory Rate 18 18 Blood Pressure 156/78 H Blood Pressure [Right Arm] 154/81 H 153/81 H Pulse Oximetry 96 96 03/27/20 15:00 03/27/20 16:30 Temperature Pulse Rate 69 69 Respiratory Rate 17 19 Blood Pressure Blood Pressure [Right Arm] 134/71 166/79 H Pulse Oximetry 94 95 <Kathryn Wikls MD - Last Filed: 03/29/20 17:45> Orders Ordered: Discontinued Medications Sodium Chloride (Normal Saline 0.9%) 1,000 mls @ 1,000 mls/hr IV BOLUS ONE Stop: 03/27/20 13:51 Last Infusion: 03/27/20 14:27 Dose: 0 mls/hr Documented by: Admin: 03/27/20 13:05 Dose: 1,000 mls/hr Documented by: JUDITH Sodium Chloride (Normal Saline 0.9%) 1,000 mls @ 1,000 mls/hr IV BOLUS ONE Stop: 03/27/20 15:54 Last Infusion: 03/27/20 16:56 Dose: 0 mls/hr Documented by: Admin: 03/27/20 15:29 Dose: 1,000 mls/hr Documented by: JUDITH Potassium Chloride 20 meq/ (Sodium Chloride) 260 mls @ 130 mls/hr IV NOW ONE Stop: 03/27/20 16:55 Last Infusion: 03/27/20 16:56 Dose: 0 mls/hr Documented by: JUDITH Cosigned by: [email or web address] Admin: 03/27/20 15:26 Dose: 130 mls/hr Documented by: JUDITH Cosigned by: BTONER Ondansetron HCl (Zofran) 4 mg IV NOW ONE Stop: 03/27/20 12:53 Last Admin: 03/27/20 14:27 Dose: Not Given Documented by: JUDITH Potassium Chloride (Potassium Chloride) 40 meq PO NOW ONE Stop: 03/27/20 16:49 Last Admin: 03/27/20 16:51 Dose: 40 meq Documented by: JUDITH Prochlorperazine (Compazine) 10 mg IV NOW ONE Stop: 03/27/20 14:13 Last Admin: 03/27/20 14:18 Dose: 10 mg Documented by: JUDITH Vital Signs Vital signs: Vital Signs - 8 hr 03/27/20 12:38 03/27/20 13:00 03/27/20 14:18 Temperature 98.0 F Pulse Rate 66 69 68 Respiratory Rate 18 18 Blood Pressure 156/78 H Blood Pressure [Right Arm] 154/81 H 153/81 H Pulse Oximetry 96 96 03/27/20 15:00 03/27/20 16:30 Temperature Pulse Rate 69 69 Respiratory Rate 17 19 Blood Pressure Blood Pressure [Right Arm] 134/71 166/79 H Pulse Oximetry 94 95 MDM - Nausea/Vomiting/Diarrhea <SHUN Huizar - Last Filed: 03/27/20 19:26> Lab Data Result diagrams: 03/27/20 13:09 03/27/20 13:09 Labs: Lab Results 03/27/20 03/27/20 03/27/20 Range/Units 13:09 13:09 13:09 WBC 10.4 (4.5-11.0) X10^3/uL RBC 3.53 L (4.5-5.9) X10^6/uL Hgb 13.3 L (13.5-17.5) g/dL Hct 37.8 L (41-53) % MCV 107.0 H (80-100) fL MCH 37.5 H (26-34) PG MCHC 35.1 (30-36) % RDW 16.3 H (11.6-14.8) % Plt Count 260 (150-400) X10^3/uL Neut % (Auto) 87.1 H (50-75) % Lymph % (Auto) 4.6 L (25-40) % [place] % (Auto) 8.0 (3-14) % Eos % (Auto) 0.1 L (2-4) % Baso % (Auto) 0.2 (0-2) % Neut # (Auto) 9000 H (2307-5238) /uL Lymph # (Auto) 500 L (6179-3885) /uL [place] # (Auto) 800 (0-900) /uL Eos # (Auto) 0 (0-450) /uL Baso # (Auto) 0 (0-100) /uL Sodium 138 (137-145) mmol/L Potassium 3.1 L (3.4-5.1) mmol/L Chloride 97 L (98-107) mmol/L Carbon Dioxide 33 H (22-32) mmol/L BUN 27 H (9-20) mg/dL Creatinine 1.34 H (0.66-1.25) mg/dL Estimated GFR 52.9 L (>60) mL/min BUN/Creatinine Ratio 20.1 (6-22) Glucose 198 H (80-110) mg/dL Lactate 1.6 (0.7-2.1) mmol/L Calcium 9.7 (8.4-10.2) mg/dL Total Bilirubin 1.0 (0.2-1.3) mg/dL AST 47 (17-59) IU/L ALT 26 (<50) IU/L Alkaline Phosphatase 82 (38-126) U/L Total Protein 8.1 (6.3-8.2) g/dL Albumin 4.4 (3.5-5.0) g/dL Globulin 3.7 (1.7-4.1) g/dL Albumin/Globulin Ratio 1.2 (1.0-2.8) Amylase 49 (30-110) U/L Lipase 53 (23-300) U/L Imaging Data CT scan - abdomen/pelvis: Radiologist's Impression: [address] [place] [address] CT Scan Report Signed Patient: Clifford Narayan [facility]#: [id number] : 1950Acct:[id number] Age/Sex: 69 / MDate of Service: 03/27/20 Loc: ED Accession Number: [id number] Procedure: CT abdomen pelvis w con Ordering Provider: Lina Kamara PROFESSOR OF MECHANICAL ENGINEERING- PROCEDURE: CT ABDOMEN PELVIS W CON INDICATIONS: abd pain, vomiting TECHNIQUE: After the administration of oral and intravenous contrast, 5 mm thick sections acquired from the diaphragms to the symphysis. 5 mm thick coronal and sagittal reformats were performed. For radiation dose reduction, the following was used: automated exposure control, adjustment of mA and/or kV according to patient size. COMPARISON: [facility], CT, CT ABDOMEN PELVIS W CON, 11/29/2019, 2:03. [facility], CT, CT ABDOMEN PELVIS W CON, 11/24/2018, 6:57. [facility], CT, CT ABDOMEN PELVIS W CON, 10/18/2018, 23:09. FINDINGS: Image quality: Diagnostic. ABDOMEN: Lung bases: Lung bases are clear. Heart size is normal. Solid organs: The liver is normal in size and continues to be hypodense when compared to the spleen. No definite liver lesions are evident. More focal prominent areas of fatty infiltration may be present along the gallbladder fossa and falciform ligament. The portal vein is patent. The gallbladder is surgically absent. There is no intrahepatic or extrahepatic biliary dilatation. The pancreas is unchanged. There continues to be an ovoid hypodense lesion it is partly exophytic involving the body of the pancreas that measures up to approximately 1.3 cm, which may be slightly smaller on the current study, but likely is unchanged, given differences in measurement technique. No new pancreatic lesions are evident. There is no peripancreatic inflammation. The adrenals and spleen are unchanged. Both kidneys are normal in size. There is no hydronephrosis. However, there is slight prominence of the proximal left ureter which is slightly more pronounced on the current study. No ureteral filling defects are evident. Bilateral renal cysts are noted. Perinephric edema is present bilaterally, which is likely senescent. The enhancement pattern of both kidneys is symmetric and within normal limits. Peritoneum and bowel: The stomach is within normal limits. The small bowel loops are nondilated. The colon appears to be within normal limits. Postoperative changes of the proximal colon are incidentally noted. The appendix is well-visualized and normal. There is no free fluid, loculated fluid collection or free air. Areas of mild colonic diverticulosis are present without surrounding inflammation evident to suggest diverticulitis. Nodes and vessels: No retroperitoneal or mesenteric adenopathy. However, there is a peripherally enhancing lymph node identified just below the aortic bifurcation, which measures approximately 1.3 cm in short axis (image 70, series 2), unchanged when compared to the prior examination. No additional similar-appearing lymph nodes are evident. Aorta and inferior vena cava are normal in caliber. There is aortic atherosclerosis. Bones: No acute fracture or suspicious osseous lesion is identified. Age-appropriate degenerative changes of the spine are noted. PELVIS: Genitourinary: Moderate thickening of the urinary bladder wall is identified. A small amount of air is contained on the anti-dependent aspect of the bladder. The prostate gland is borderline enlarged. Miscellaneous: No inguinal hernias or adenopathy. However, there is soft tissue thickening identified within the presacral space that surrounds the rectum, similar to the prior study. Postoperative changes at this location are present. No drainable or loculated fluid collection is appreciated. There is no free air. Bones: No suspicious bony lesions. No acute pelvic fractures are identified. IMPRESSION: 1. No definite acute abnormality is appreciated within the abdomen or pelvis. 2. Minimal colonic diverticulosis without diverticulitis. No bowel obstruction. 3. Hypodense lesions within the pancreas probably have not significantly changed. Continued followup is recommended. 4. Prominence of the urinary bladder wall probably is related to chronic bladder outlet obstruction. Please correlate clinically to exclude cystitis. 5. Enlarged lymph node below the aortic bifurcation is similar to prior studies. Followup on subsequent imaging is recommended. 6. Hepatic steatosis. 7. Postoperative changes of the rectum with presacral soft tissue thickening is similar to prior exams. There is no drainable fluid collection. Dictated by: Jesse Horan M.D. on 03/27/2020 at 13:07 Approved by: Jesse Horan M.D. on 03/27/2020 at 13:15 MDM Narrative Medical decision making narrative: The patient is a 69-year-old male who presents with a chief complaint of nausea and vomiting. He was seen here 2 days ago, did not fill his prescriptions for over 24 hours. On evaluation, he is dehydrated. Given that he re-presented and is unable to keep down fluids, we did do a CT which had no acute findings. The patient felt much improved after the above-stated therapies and was able to keep down water, ice chips, crackers and potassium. I discussed at length follow up with primary care provider, we discussed at length not smoking marijuana. Discussed the possibility of cyclic vomiting, and strongly discouraged marijuana smoking. Patient have no questions or concerns upon discharge and state understanding of return precautions as well as follow-up care. <Kathryn Wilks MD - Last Filed: 03/29/20 17:45> Lab Data Labs: Lab Results 03/27/20 03/27/20 03/27/20 Range/Units 13:09 13:09 13:09 WBC 10.4 (4.5-11.0) X10^3/uL RBC 3.53 L (4.5-5.9) X10^6/uL Hgb 13.3 L (13.5-17.5) g/dL Hct 37.8 L (41-53) % MCV 107.0 H (80-100) fL MCH 37.5 H (26-34) PG MCHC 35.1 (30-36) % RDW 16.3 H (11.6-14.8) % Plt Count 260 (150-400) X10^3/uL Neut % (Auto) 87.1 H (50-75) % Lymph % (Auto) 4.6 L (25-40) % [place] % (Auto) 8.0 (3-14) % Eos % (Auto) 0.1 L (2-4) % Baso % (Auto) 0.2 (0-2) % Neut # (Auto) 9000 H (5274-4995) /uL Lymph # (Auto) 500 L (2630-9875) /uL [place] # (Auto) 800 (0-900) /uL Eos # (Auto) 0 (0-450) /uL Baso # (Auto) 0 (0-100) /uL Sodium 138 (137-145) mmol/L Potassium 3.1 L (3.4-5.1) mmol/L Chloride 97 L (98-107) mmol/L Carbon Dioxide 33 H (22-32) mmol/L BUN 27 H (9-20) mg/dL Creatinine 1.34 H (0.66-1.25) mg/dL Estimated GFR 52.9 L (>60) mL/min BUN/Creatinine Ratio 20.1 (6-22) Glucose 198 H (80-110) mg/dL Lactate 1.6 (0.7-2.1) mmol/L Calcium 9.7 (8.4-10.2) mg/dL Total Bilirubin 1.0 (0.2-1.3) mg/dL AST 47 (17-59) IU/L ALT 26 (<50) IU/L Alkaline Phosphatase 82 (38-126) U/L Total Protein 8.1 (6.3-8.2) g/dL Albumin 4.4 (3.5-5.0) g/dL Globulin 3.7 (1.7-4.1) g/dL Albumin/Globulin Ratio 1.2 (1.0-2.8) Amylase 49 (30-110) U/L Lipase 53 (23-300) U/L Discharge Plan Departure Patient Disposition: Home Clinical Impression: Nausea & vomiting Qualifiers: Vomiting type: unspecified Vomiting Intractability: non-intractable Qualified Code(s): R11.2 - Nausea with vomiting, unspecified Discharge Date/Time: 03/27/20 17:48 Instructions: DI for Nausea -- Adult, DI for Vomiting -- Adult Activity Restrictions/Additional Instructions: Thank you for trusting us with your care today As I discussed, your CT scan shows no definite acute abnormality Please push fluids. Please continue with the as needed medications given to you during her previous visit. I highly suggest monitoring your blood sugars. Also suggest following up with primary care provider in the next few days. Your potassium was slightly low today and we have replaced it. As discussed please stop smoking marijuana. Marijuana can contribute to cyclic vomiting. Please follow-up with primary care provider in the next few days. As discussed, please come back to the emergency department for any acute concerns Prescriptions: No Action carvedilol 25 mg Tablet 25 mg PO BID RF: 0 cetirizine 10 mg Tablet 10 mg PO DAILY PRN (Reason: Allergy Symptoms) RF: 0 lisinopril 20 mg Tablet 20 mg PO DAILY RF: 0 potassium chloride [K-Tab] 10 mEq Tablet Extended Release 20 meq PO DAILY RF: 0 allopurinol 100 mg Tablet 150 mg PO DAILY RF: 0 tamsulosin 0.4 mg Capsule 0.4 mg PO BID RF: 0 Humulin N NPH U-100 Insulin 100 unit/mL Suspension 16 units subcut DAILY RF: 0 hydrochlorothiazide 25 mg Tablet 25 mg PO DAILY RF: 0 furosemide 20 mg Tablet 20 mg PO DAILY PRN (Reason: Weight above 244#) RF: 0 fluticasone propionate 50 mcg/actuation [place],Suspension 1 spray INTRANASAL DAILY PRN (Reason: Allergy Symptoms) RF: 0 amlodipine 10 mg tablet 10 mg PO DAILY RF: 0 rosuvastatin 5 mg tablet RF: 0 cyanocobalamin (vitamin B-12) [Vitamin B-12] 1,000 mcg tablet 1,000 mcg PO DAILY RF: 0 azathioprine 50 mg Tablet 100 mg PO DAILY RF: 0 magnesium oxide 400 mg (241.3 mg magnesium) tablet 400 mg PO BID RF: 0 ferrous gluconate 324 mg (38 mg iron) tablet 324 mg PO DAILY RF: 0 prochlorperazine maleate [Compazine] 10 mg tablet 10 mg PO Q8H PRN (Reason: nausea and vomiting) Qty: 10 RF: 0 ondansetron HCl [Zofran] 8 mg tablet 8 mg PO Q8H PRN (Reason: nausea and vomiting) Qty: 12 RF: 0 diphenhydramine HCl [Benadryl Allergy] 25 mg tablet 25 mg PO Q6H PRN (Reason: nausea and vomiting) Qty: 20 RF: 0 prochlorperazine [Compazine] 25 mg suppository 25 mg [place] Q12H PRN (Reason: nausea and vomiting) Qty: 12 RF: 0 amoxicillin-pot clavulanate 1,000-62.5 mg tablet extended release 12 hr 1 tab PO BID Qty: 20 RF: 0 Referrals: Joel Solares MD [Primary Care Provider] - <Kathryn Wilks MD - Last Filed: 03/29/20 17:45> Cosign ED Attending Cosignature Attestation: I was immediately available in the department for consultation throughout this patient's visit. I agree with documentation as above. Kathryn Wilks MD
[2020-03-27 14:18] VITALS: BP 156/78; PULSE 68
[2020-03-27] MEDS: PROCHLORPERAZINE 10 MG/2 ML VIAL IV (14:18)
[2020-03-27 15:00] VITALS: BP 134/71; PULSE 69; RESP 17; O2SAT 94
[2020-03-27] MEDS: POTASSIUM CHLORIDE 20 MEQ in SODIUM CHLORIDE 0.9% 250 ML 130 ML IV (15:26)
[2020-03-27 16:30] VITALS: BP 166/79; PULSE 69; RESP 19; O2SAT 95
[2020-03-27] MEDS: POTASSIUM CHLORIDE 20 MEQ/15 ML UDC 40 MEQ PO (16:51)
== END 2020-03-27 17:48 | disposition home or self-care (01) ==
PROVIDERS: Emergency Provider Nurse Practitioner Family; PCP Internal Medicine
DX: R11.2 Nausea with vomiting, unspecified (principal); R10.9 Unspecified abdominal pain; E11.9 Type 2 diabetes mellitus without complications
CPT/HCPCS: 36415; 74177; 80053; 82150; 83605; 83690; 85025; 96361; 96374; 96375; 99284; 99285; J0780; J2405; J3480

== ENCOUNTER 2020-03-29 06:49 | Emergency (ER) | payer MEDICARE, SELFPAY ==
[2020-03-29 06:55] VITALS: BP 112/62; PULSE 62; RESP 18; TEMP 36; O2SAT 95
--- NOTE | 2020-03-29 07:18 | ED.ARRPALP ---
HPI - Arrhythmia/Palpitations General Chief Complaint: Arrhythmia/Palpitations Stated Complaint: heart racing,hot/cold flashes Time Seen by Provider: 03/29/20 06:55 Source: patient Mode of arrival: Ambulatory Limitations: no limitations History of Present Illness HPI narrative: 69-year-old gentleman with a history of diabetes, pacemaker, hypertension, hyperlipidemia, celiac disease and a history of rectal cancer presents for his 3rd visit within a week. Initial 2 visits for recurrent nausea and today is noticing a sensation of palpitations. With palpations he notices a sense of unease and he is ?unable to get comfortable? but he does not describe specific pain. He is mildly dyspneic and mildly diaphoretic. Symptoms do not seem to be related to activity and are not exacerbated when lying flat. He is not noticing increasing exertional dyspnea or orthopnea or lower extremity edema. Apparently did have a recent UTI and was recently on antibiotics. Underwent a CT scan of his abdomen on 03/27 the did not have any significant pathology appreciated. Possibility of cannabinoid hyperemesis syndrome was entertained as a cause of his recurrent vomiting and was advised to discontinue marijuana and fill prescriptions for the Compazine which have been effective in the emergency department. He notes that over the last 24 hours he has had almost no nausea. He has had limited p.o. intake but it is increasing he was able to keep some jayson mike and toast down yesterday. He reports continued hot and cold flashes without fevers. He reports self catheterization after bladder complications related to radiation secondary to rectal cancer and reports normal amounts of urine volumes, color and odor over the last 24 hours. Was treated by last week with 7 days of Macrobid. He was wondering if he needed a couple extra days of antibiotic dosing, will check urinalysis today. Related Data Home Medications Medication Instructions Recorded Confirmed allopurinol 150 mg PO DAILY 10/18/18 06/13/19 carvedilol 25 mg PO BID 10/18/18 06/13/19 cetirizine 10 mg PO DAILY PRN 10/18/18 11/24/18 fluticasone propionate 1 spray INTRANASAL DAILY PRN 10/18/18 11/24/18 furosemide 20 mg PO DAILY PRN 10/18/18 06/13/19 hydrochlorothiazide 25 mg PO DAILY 10/18/18 06/13/19 insulin NPH isoph U-100 human 16 units SUBCUT DAILY 10/18/18 11/24/18 [Humulin N NPH U-100 Insulin] lisinopril 20 mg PO DAILY 10/18/18 06/13/19 potassium chloride [K-Tab] 20 meq PO DAILY 10/18/18 06/13/19 tamsulosin 0.4 mg PO BID 10/18/18 06/13/19 azathioprine 100 mg PO DAILY 11/24/18 06/13/19 cyanocobalamin (vitamin B-12) 1,000 mcg PO DAILY 11/24/18 11/24/18 [Vitamin B-12] ferrous gluconate 324 mg PO DAILY 11/24/18 11/24/18 magnesium oxide 400 mg PO BID 11/24/18 11/24/18 amlodipine 10 mg PO DAILY 06/13/19 06/13/19 rosuvastatin mg 06/13/19 Previous Rx's Medication Instructions Recorded prochlorperazine maleate 10 mg PO Q8H PRN #10 tab 11/29/19 [Compazine] diphenhydramine HCl [Benadryl 25 mg PO Q6H PRN #20 tab 03/25/20 Allergy] ondansetron HCl [Zofran] 8 mg PO Q8H PRN #12 tab 03/25/20 prochlorperazine [Compazine] 25 mg FL Q12H PRN #12 each 03/25/20 amoxicillin-pot clavulanate 1 tab PO BID #20 tab 03/29/20 Allergies Allergy/AdvReac Type Severity Reaction Status Date / Time fluorouracil Allergy Verified 03/29/20 12:40 Review of Systems Review of Systems Narrative: Pertinent positive and negative findings as per HPI Remainder of review of systems is otherwise unremarkable for Constitutional: Fevers, weakness ENT: No sore throat, neck pain, ear pain Respiratory: Cough, wheeze, dyspnea MS: Muscle weakness, numbness, joint swelling or warmth Skin: Rashes, nonhealing lesions Neuro: Syncope, dizziness, tingling Psych: Depression, anxiety, suicidal ideation Endocrine: Fatigue, heat or cold intolerance, Heme: Easy bruising or bleeding Patient History Medical History Celiac disease (Acute) Congestive heart failure (Acute) Diabetes (Acute) Pacemaker (Acute) Rectal cancer (Acute) Urinary retention (Acute) Surgical History H/O colectomy (Acute) Social History lives independently: Yes Smoking Status: Never smoker Smoking Status: Never smoker alcohol intake frequency: holidays/special occasions only Substance Use Type: marijuana Exam Narrative Exam Narrative: General: Healthy appearing, in no acute distress. Able to give a complete and coherent history. Well-nourished well-developed HEENT: Moist mucous membranes, normal sclera with reactive pupils, Neck: No JVD, supple Respiratory: Lungs are clear to auscultation, no wheezing no rales no rhonchi. Full and symmetrical air movement Chest: Right upper chest has a scar from a placed and then removed Port-A-Cath. Pacemaker in the left upper area of the chest is unremarkable. Cardiac: Distant heart sounds however Regular rate and rhythm no murmurs no bruits Abdomen: Soft nontender good bowel tones, no flank pain Skin: Warm and dry, no rashes Neurologic: Grossly neurologically intact with no obvious asymmetries or abnormalities Extremities: No trauma, well perfused Psych: Cooperative, appropriate insight and affect Initial Vital Signs Initial Vital Signs: Vital Signs Temperature 96.8 F L 03/29/20 06:55 Pulse Rate 62 03/29/20 06:55 Respiratory Rate 18 03/29/20 06:55 Blood Pressure 112/62 03/29/20 06:55 Pulse Oximetry 95 03/29/20 06:55 Course Orders Ordered: ED Orders 03/29/20 09:00 Urinalysis and Microscopic Stat Urine Culture Stat 03/29/20 10:30 Troponin I Stat Discontinued Medications Amoxicillin/Clavulanate Potassium (Augmentin 875-125 Mg) 1 tab PO NOW ONE Stop: 03/29/20 12:12 Last Admin: 03/29/20 12:24 Dose: 1 tab Documented by: CAROL Potassium Chloride (Klor-Con M20) 40 meq PO NOW ONE Stop: 03/29/20 09:34 Last Admin: 03/29/20 10:30 Dose: 40 meq Documented by: EDUARDO Vital Signs Vital signs: Vital Signs - 8 hr 03/29/20 10:05 03/29/20 12:37 Pulse Rate 86 91 H Respiratory Rate 18 18 Blood Pressure 107/67 Blood Pressure [Right Arm] 93/51 L Pulse Oximetry 93 98 MDM - Arrhythmia/Palpitations Medical Records Attestation: I reviewed the patient's medical records. Lab Data Attestation: I reviewed the patient's lab results. Lab results narrative: Troponin is slightly elevated however it has been similar to this if not higher in the past BNP is slightly elevated however no clinical signs of heart failure and chest x-ray does not suggest this. Creatinine at 1.27 is slightly less than his baseline Potassium was low at 3. Result diagrams: 03/29/20 08:10 03/29/20 08:10 Labs: Lab Results 03/29/20 03/29/20 03/29/20 Range/Units 08:10 08:10 08:10 WBC 7.2 (4.5-11.0) X10^3/uL RBC 3.44 L (4.5-5.9) X10^6/uL Hgb 13.1 L (13.5-17.5) g/dL Hct 36.7 L (41-53) % MCV 106.6 H (80-100) fL MCH 38.0 H (26-34) PG MCHC 35.6 (30-36) % RDW 16.3 H (11.6-14.8) % Plt Count 219 (150-400) X10^3/uL Neut % (Auto) 85.6 H (50-75) % Lymph % (Auto) 5.9 L (25-40) % [place] % (Auto) 7.7 (3-14) % Eos % (Auto) 0.5 L (2-4) % Baso % (Auto) 0.3 (0-2) % Neut # (Auto) 6200 (8113-9913) /uL Lymph # (Auto) 400 L (0112-8457) /uL [place] # (Auto) 600 (0-900) /uL Eos # (Auto) 0 (0-450) /uL Baso # (Auto) 0 (0-100) /uL Sodium 135 L (137-145) mmol/L Potassium 3.0 L (3.4-5.1) mmol/L Chloride 94 L (98-107) mmol/L Carbon Dioxide 34 H (22-32) mmol/L BUN 27 H (9-20) mg/dL Creatinine 1.27 H (0.66-1.25) mg/dL Estimated GFR 56.2 L (>60) mL/min BUN/Creatinine Ratio 21.3 (6-22) Glucose 189 H (80-110) mg/dL Calcium 9.0 (8.4-10.2) mg/dL Total Bilirubin 1.0 (0.2-1.3) mg/dL AST 44 (17-59) IU/L ALT 26 (<50) IU/L Alkaline Phosphatase 67 (38-126) U/L Troponin I 0.081 H (0.01-0.034) ng/mL NT-Pro-B Natriuret Pep 8210 H (<125) pg/mL Total Protein 7.0 (6.3-8.2) g/dL Albumin 3.9 (3.5-5.0) g/dL Globulin 3.1 (1.7-4.1) g/dL Albumin/Globulin Ratio 1.3 (1.0-2.8) Procalcitonin 0.06 (<0.5) ng/mL Urine Color Urine Appearance Urine pH (4.5-8.0) Ur Specific [place] (1.000-1.035) Urine Protein (Negative) Urine Glucose (UA) (Negative) g/dL Urine Ketones (NEGATIVE) Urine Occult Blood (Negative) Urine Nitrate (Negative) Urine Bilirubin (NEGATIVE) Urine Urobilinogen (0.2) E.U./dL Ur Leukocyte Esterase (NEGATIVE) Urine RBC (0-5/HPF) Urine WBC (0-5/HPF) Urine Bacteria (None) Ur Culture Indicated? 03/29/20 03/29/20 Range/Units 09:00 10:30 WBC (4.5-11.0) X10^3/uL RBC (4.5-5.9) X10^6/uL Hgb (13.5-17.5) g/dL Hct (41-53) % MCV (80-100) fL MCH (26-34) PG MCHC (30-36) % RDW (11.6-14.8) % Plt Count (150-400) X10^3/uL Neut % (Auto) (50-75) % Lymph % (Auto) (25-40) % [place] % (Auto) (3-14) % Eos % (Auto) (2-4) % Baso % (Auto) (0-2) % Neut # (Auto) (7660-1123) /uL Lymph # (Auto) (5270-3987) /uL [place] # (Auto) (0-900) /uL Eos # (Auto) (0-450) /uL Baso # (Auto) (0-100) /uL Sodium (137-145) mmol/L Potassium (3.4-5.1) mmol/L Chloride (98-107) mmol/L Carbon Dioxide (22-32) mmol/L BUN (9-20) mg/dL Creatinine (0.66-1.25) mg/dL Estimated GFR (>60) mL/min BUN/Creatinine Ratio (6-22) Glucose (80-110) mg/dL Calcium (8.4-10.2) mg/dL Total Bilirubin (0.2-1.3) mg/dL AST (17-59) IU/L ALT (<50) IU/L Alkaline Phosphatase (38-126) U/L Troponin I 0.077 H (0.01-0.034) ng/mL NT-Pro-B Natriuret Pep (<125) pg/mL Total Protein (6.3-8.2) g/dL Albumin (3.5-5.0) g/dL Globulin (1.7-4.1) g/dL Albumin/Globulin Ratio (1.0-2.8) Procalcitonin (<0.5) ng/mL Urine Color Yellow Urine Appearance Sl cloudy Urine pH 6.0 (4.5-8.0) Ur Specific [place] 1.025 (1.000-1.035) Urine Protein 3+ H (Negative) Urine Glucose (UA) Negative (Negative) g/dL Urine Ketones Negative (NEGATIVE) Urine Occult Blood 2+ H (Negative) Urine Nitrate Negative (Negative) Urine Bilirubin Negative (NEGATIVE) Urine Urobilinogen 1.0 (0.2) E.U./dL Ur Leukocyte Esterase Negative (NEGATIVE) Urine RBC 5-10/hpf H (0-5/HPF) Urine WBC 10-30/hpf H (0-5/HPF) Urine Bacteria Many (>30) H (None) Ur Culture Indicated? Specimen cultured Point of Care Testing Glucose POC 207 Urine Culture Final 03/16/20-8682 Organism 1 Escherichia coli [place] Count >100,000 CFU/ml 1. Escherichia coli M.I.C. RX --------- --- * Amoxicillin/Clavulanate S * Ampicillin R * Ampicillin/Sulbactam S * Cefazolin S * Cefepime S * Ceftriaxone S * Ciprofloxacin R * Ertapenem S * Gentamicin S * Imipenem S * Levofloxacin R * Nitrofurantoin S * Tobramycin S * Trimethoprim/Sulfamethoxazole R * Piperacillin/Tazobactam S Imaging Data Chest x-ray: Radiologist's Impresson: IMPRESSION: No acute disease Dictated by: Joe Harmon M.D. on 03/29/2020 at 8:16 ECG Data Attestation: I personally reviewed and interpreted this ECG as follows: Interpretation: Ventricular pacing at a rate of 70 MDM Narrative Medical decision making narrative: 69-year-old gentleman presents with episodes of palpitations. No chest pain no shortness of breath he does have mild dysuria. Pacer interrogation indicates that he had some atrial tachycardia that was controlled with his pacemaker and ventricular response at 70 continued. Potassium was slightly low. He has had some diarrhea and vomiting and has not been taking medications because of this. Urinalysis suggests a bladder infection. Based on culture and sensitivity from urine from March 14 which showed E coli sensitive to Keflex/Augmentin/nitrofurantoin as oral options. Resistant to Cipro and Levaquin. Keflex seems to cause some GI distress. He has already finished 6 days of nitrofurantoin that did not fully treat his infection. Will treat with Augmentin for 7 days and have him follow-up with Plan is reviewed with patient his . Questions are answered. Patient is safe for home discharge. Discharge Plan Departure Patient Disposition: Home Clinical Impression: Acute UTI, Atrial tachycardia, Hypokalemia Discharge Date/Time: 03/29/20 12:40 Instructions: DI for Urinary Tract Infection (UTI) Activity Restrictions/Additional Instructions: Thank you for coming in today You do still have a bladder infection based on your urine sample. Based on the sample from March 14, this is likely still E coli. As you did not completely resolve the infection with the nitrofurantoin I am going to change her antibiotic to Augmentin. [facility] [place] [facility] you today With the recent vomiting and diarrhea your potassium level is moderately low. You had a single dose potassium here in the emergency department and you need to restart the potassium supplementation you have at home. Your pacer suggests that you had an episode where the upper part of your heart was beating fast and your pacemaker worked perfectly so your heart rate overall did not cause problems. There is no evidence of heart attack or other acute heart issues this time. If you have more episodes of palpitations, any chest pain, shortness of breath, fevers, abdominal pain or feel that your bladder infection symptoms are worsening please return to the emergency department. Otherwise, go back to your usual potassium doses, complete 7 days of Augmentin and follow-up with Dr. Mendoza for the urinary symptoms. Prescriptions: New amoxicillin-pot clavulanate 1,000-62.5 mg tablet extended release 12 hr 1 tab PO BID Qty: 20 RF: 0 No Action carvedilol 25 mg Tablet 25 mg PO BID RF: 0 cetirizine 10 mg Tablet 10 mg PO DAILY PRN (Reason: Allergy Symptoms) RF: 0 lisinopril 20 mg Tablet 20 mg PO DAILY RF: 0 potassium chloride [K-Tab] 10 mEq Tablet Extended Release 20 meq PO DAILY RF: 0 allopurinol 100 mg Tablet 150 mg PO DAILY RF: 0 tamsulosin 0.4 mg Capsule 0.4 mg PO BID RF: 0 Humulin N NPH U-100 Insulin 100 unit/mL Suspension 16 units subcut DAILY RF: 0 hydrochlorothiazide 25 mg Tablet 25 mg PO DAILY RF: 0 furosemide 20 mg Tablet 20 mg PO DAILY PRN (Reason: Weight above 244#) RF: 0 fluticasone propionate 50 mcg/actuation [place],Suspension 1 spray INTRANASAL DAILY PRN (Reason: Allergy Symptoms) RF: 0 amlodipine 10 mg tablet 10 mg PO DAILY RF: 0 rosuvastatin 5 mg tablet RF: 0 cyanocobalamin (vitamin B-12) [Vitamin B-12] 1,000 mcg tablet 1,000 mcg PO DAILY RF: 0 azathioprine 50 mg Tablet 100 mg PO DAILY RF: 0 magnesium oxide 400 mg (241.3 mg magnesium) tablet 400 mg PO BID RF: 0 ferrous gluconate 324 mg (38 mg iron) tablet 324 mg PO DAILY RF: 0 prochlorperazine maleate [Compazine] 10 mg tablet 10 mg PO Q8H PRN (Reason: nausea and vomiting) Qty: 10 RF: 0 ondansetron HCl [Zofran] 8 mg tablet 8 mg PO Q8H PRN (Reason: nausea and vomiting) Qty: 12 RF: 0 diphenhydramine HCl [Benadryl Allergy] 25 mg tablet 25 mg PO Q6H PRN (Reason: nausea and vomiting) Qty: 20 RF: 0 prochlorperazine [Compazine] 25 mg suppository 25 mg FL Q12H PRN (Reason: nausea and vomiting) Qty: 12 RF: 0 Referrals: Shira Mendoza MD [Physician] - Joel Solares MD [Primary Care Provider] -
--- NOTE | 2020-03-29 07:55 | DI.RAD.S_ITS ---
PROCEDURE: XR CHEST 1V INDICATIONS: Palpitations TECHNIQUE: One view of the chest was acquired. COMPARISON: [facility], CR, XR ACUTE ABDOMEN SERIES, 03/25/2020, 12:45. FINDINGS: Surgical changes and devices: Dual-lead cardiac pacer Lungs and pleura: Lungs are clear. Scattered scarring/atelectasis No pleural effusions or pneumothorax. Mediastinum: Mediastinal contours appear normal. Heart size is normal. Bones and chest wall: No suspicious bony lesions. Overlying soft tissues appear unremarkable. IMPRESSION: No acute disease Dictated by: Joe Harmon M.D. on 03/29/2020 at 8:16 Approved by: Joe Harmon M.D. on 03/29/2020 at 8:17
[2020-03-29 08:19] LABS: Add Manual Diff / Slide Review NO; Basophils Absolute Auto 0 /uL (0-100); Basophils Percent Auto 0.3 % (0-2); Eosinophils Absolute Auto 0 /uL (0-450); Eosinophils Percent Auto 0.5 % (2-4); Hematocrit 36.7 % (41-53); Hemoglobin 13.1 g/dL (13.5-17.5); Lymphocytes Absolute Auto 400 /uL (1100-4500); Lymphocytes Percent Auto 5.9 % (25-40); Mean Corpuscular HGB Conc 35.6 % (30-36); Mean Corpuscular Volume 106.6 fL (80-100); Monocytes Absolute Auto 600 /uL (0-900); Monocytes Percent Auto 7.7 % (3-14); Neutrophils Absolute Auto 6200 /uL (1500-7000); Neutrophils Percent Auto 85.6 % (50-75); Platelet Count 219 X10^3/uL (150-400); Red Blood Cell Count 3.44 X10^6/uL (4.5-5.9); Red Cell Distribution Width 16.3 % (11.6-14.8); White Blood Cell Count 7.2 X10^3/uL (4.5-11.0)
[2020-03-29 08:33] LABS: Alanine Aminotransferase 26 IU/L (<50); Albumin 3.9 g/dL (3.5-5.0); Albumin Globulin Ratio 1.3 (1.0-2.8); Alkaline Phosphatase 67 U/L (38-126); Aspartate Aminotransferase 44 IU/L (17-59); BUN Creatinine Ratio 21.3 (6-22); Blood Urea Nitrogen 27 mg/dL (9-20); Carbon Dioxide 34 mmol/L (22-32); Chloride 94 mmol/L (98-107); Estimated Glomerular Filt Rate 56.2 mL/min (>60); Globulin 3.1 g/dL (1.7-4.1); Glucose 189 mg/dL (80-110); HEMOLYSIS < 15 (0-50); Sodium 135 mmol/L (137-145)
[2020-03-29 08:43] LABS: NT-proBNP (BNP-Adult 18+) 8210 pg/mL (<125); Troponin I 0.081 ng/mL (0.01-0.034)
[2020-03-29 08:46] LABS: Procalcitonin 0.06 ng/mL (<0.5)
[2020-03-29 08:49] VITALS: PULSE 70; RESP 16; O2SAT 97
[2020-03-29 08:53] VITALS: BP 103/68
[2020-03-29 09:12] LABS: Appearance Urine UA SL CLOUDY; Bilirubin Urine UA NEGATIVE (NEGATIVE); Color Urine UA YELLOW; Glucose Urine UA NEGATIVE (Negative); Ketones Urine UA NEGATIVE (NEGATIVE); Leukocyte Esterase Urine UA NEGATIVE (NEGATIVE); Nitrite Urine UA NEGATIVE (Negative); Occult Blood Urine UA 2+ (Negative); Protein Urine UA 3+ (Negative); Specific Gravity Urine UA 1.025 (1.000-1.035)
[2020-03-29 09:19] LABS: Bacteria Urine Many (>30); Culture Indicated Urine Specimen Cultured; RBC Urine 5-10/HPF (0-5/HPF); WBC Urine 10-30/HPF (0-5/HPF)
[2020-03-29 09:41] VITALS: PULSE 84; RESP 16; O2SAT 97
[2020-03-29 10:05] VITALS: BP 93/51; PULSE 86; RESP 18; O2SAT 93
[2020-03-29] MEDS: POTASSIUM CHLORIDE 20 MEQ TAB 40 MEQ PO (10:30)
[2020-03-29 11:16] LABS: Troponin I 0.077 ng/mL (0.01-0.034)
[2020-03-29] MEDS: AMOXICILLIN/CLAV 875/125 MG 1 TAB PO (12:24)
[2020-03-29 12:37] VITALS: BP 107/67; PULSE 91; RESP 18; O2SAT 98
== END 2020-03-29 12:40 | disposition home or self-care (01) ==
PROVIDERS: Emergency Provider Emergency Medicine; PCP Internal Medicine
DX: I47.1 Supraventricular tachycardia (principal); N39.0 Urinary tract infection, site not specified; E87.6 Hypokalemia; Z95.0 Presence of cardiac pacemaker; I10 Essential (primary) hypertension; E78.5 Hyperlipidemia, unspecified; E11.9 Type 2 diabetes mellitus without complications
CPT/HCPCS: 36415; 71045; 80053; 81001; 82962; 83880; 84145; 84484; 85025; 87077; 87086; 87186; 93005; 99284

== ENCOUNTER → 2020-04-12 13:43 | Outpatient (CLI) | payer MEDICARE, SELFPAY ==
[2020-04-12 14:47] LABS: Add Manual Diff / Slide Review NO; Basophils Absolute Auto 0 /uL (0-100); Basophils Percent Auto 0.4 % (0-2); Eosinophils Absolute Auto 100 /uL (0-450); Eosinophils Percent Auto 1.6 % (2-4); Hematocrit 34.7 % (41-53); Hemoglobin 11.9 g/dL (13.5-17.5); Lymphocytes Absolute Auto 400 /uL (1100-4500); Lymphocytes Percent Auto 7.5 % (25-40); Mean Corpuscular HGB Conc 34.2 % (30-36); Mean Corpuscular Hemoglobin 36.8 PG (26-34); Mean Corpuscular Volume 107.6 fL (80-100); Monocytes Absolute Auto 400 /uL (0-900); Neutrophils Absolute Auto 4500 /uL (1500-7000); Neutrophils Percent Auto 82.5 % (50-75); Platelet Count 210 X10^3/uL (150-400); Red Blood Cell Count 3.23 X10^6/uL (4.5-5.9); Red Cell Distribution Width 15.9 % (11.6-14.8); White Blood Cell Count 5.5 X10^3/uL (4.5-11.0)
[2020-04-12 14:49] LABS: Bilirubin Urine UA NEGATIVE (NEGATIVE); Color Urine UA YELLOW; Glucose Urine UA NEGATIVE (Negative); Ketones Urine UA NEGATIVE (NEGATIVE); Leukocyte Esterase Urine UA NEGATIVE (NEGATIVE); Nitrite Urine UA POSITIVE (Negative); Occult Blood Urine UA NEGATIVE (Negative); Protein Urine UA TRACE (Negative); Specific Gravity Urine UA 1.015 (1.000-1.035); Urobilinogen Urine UA 0.2 E.U./dL (0.2)
[2020-04-12 15:01] LABS: Hemoglobin A1C% w Est Avg Glu 7.2 % (4.0-6.0)
[2020-04-12 15:03] LABS: Appearance Urine UA Slightly Cloudy
[2020-04-12 15:06] LABS: RBC Urine None Seen (0-5/HPF)
[2020-04-12 15:07] LABS: Bacteria Urine Many (>30); Culture Indicated Urine Specimen Cultured; Squamous Epithelial Cell Urine 0-1 /HPF (0-5/HPF); WBC Urine 5-10/HPF (0-5/HPF)
[2020-04-12 16:03] LABS: Alanine Aminotransferase 26 IU/L (<50); Albumin 3.8 g/dL (3.5-5.0); Albumin Globulin Ratio 1.3 (1.0-2.8); Alkaline Phosphatase 61 U/L (38-126); Aspartate Aminotransferase 32 IU/L (17-59); Bilirubin Total 0.5 mg/dL (0.2-1.3); Blood Urea Nitrogen 28 mg/dL (9-20); Calcium 9.1 mg/dL (8.4-10.2); Carbon Dioxide 30 mmol/L (22-32); Chloride 98 mmol/L (98-107); Cholesterol 105 mg/dL (140-199); Estimated Glomerular Filt Rate 56.2 mL/min (>60); Glucose 190 mg/dL (80-110); HDL Cholesterol 19 mg/dL (40-60); HEMOLYSIS < 15 (0-50); LDL Cholesterol Calculated 49 mg/dL (<100); Potassium 3.6 mmol/L (3.4-5.1); Sodium 137 mmol/L (137-145); Total Protein 6.8 g/dL (6.3-8.2); Triglycerides 186 mg/dL (35-150); Uric Acid 8.8 mg/dL (3.5-8.5)
== END ==
PROVIDERS: PCP Internal Medicine; Referring Provider Specialist; Visit Provider Specialist
DX: N39.0 Urinary tract infection, site not specified (principal)
CPT/HCPCS: 36415; 80053; 80061; 81003; 81015; 83036; 84550; 85025; 87077; 87086; 87186

== ENCOUNTER → 2020-05-22 07:26 | Outpatient (CLI) | payer MEDICARE, SELFPAY ==
[2020-05-22 08:39] LABS: Add Manual Diff / Slide Review NO; Basophils Absolute Auto 0 /uL (0-100); Basophils Percent Auto 0.5 % (0-2); Eosinophils Absolute Auto 200 /uL (0-450); Eosinophils Percent Auto 2.5 % (2-4); Hematocrit 37.3 % (41-53); Hemoglobin 12.8 g/dL (13.5-17.5); Lymphocytes Absolute Auto 500 /uL (1100-4500); Lymphocytes Percent Auto 7.1 % (25-40); Mean Corpuscular HGB Conc 34.2 % (30-36); Mean Corpuscular Hemoglobin 35.6 PG (26-34); Mean Corpuscular Volume 104.1 fL (80-100); Monocytes Absolute Auto 500 /uL (0-900); Monocytes Percent Auto 8.4 % (3-14); Neutrophils Absolute Auto 5200 /uL (1500-7000); Neutrophils Percent Auto 81.5 % (50-75); Platelet Count 221 X10^3/uL (150-400); Red Blood Cell Count 3.58 X10^6/uL (4.5-5.9); Red Cell Distribution Width 15.6 % (11.6-14.8); White Blood Cell Count 6.4 X10^3/uL (4.5-11.0)
[2020-05-22 08:46] LABS: BUN Creatinine Ratio 16.9 (6-22); Blood Urea Nitrogen 21 mg/dL (9-20); Calcium 9.5 mg/dL (8.4-10.2); Carbon Dioxide 33 mmol/L (22-32); Chloride 98 mmol/L (98-107); Cholesterol 97 mg/dL (140-199); Estimated Glomerular Filt Rate 57.8 mL/min (>60); Glucose 148 mg/dL (80-110); HDL Cholesterol 18 mg/dL (40-60); HEMOLYSIS < 15 (0-50); LDL Cholesterol Calculated 53 mg/dL (<100); Potassium 3.5 mmol/L (3.4-5.1); Sodium 139 mmol/L (137-145); Triglycerides 132 mg/dL (35-150); Uric Acid 8.5 mg/dL (3.5-8.5)
== END ==
PROVIDERS: PCP Internal Medicine; Referring Provider Internal Medicine Cardiovascular Disease; Visit Provider Internal Medicine
DX: I10 Essential (primary) hypertension (principal); E78.5 Hyperlipidemia, unspecified; K76.0 Fatty (change of) liver, not elsewhere classified; M10.00 Idiopathic gout, unspecified site
CPT/HCPCS: 36415; 80048; 80061; 84550; 85025

== ENCOUNTER → 2020-06-05 13:21 | Outpatient (CLI) | payer MEDICARE, SELFPAY ==
[2020-06-05 14:30] LABS: Appearance Urine UA CLEAR; Bilirubin Urine UA NEGATIVE (NEGATIVE); Color Urine UA YELLOW; Glucose Urine UA NEGATIVE (Negative); Ketones Urine UA NEGATIVE (NEGATIVE); Leukocyte Esterase Urine UA NEGATIVE (NEGATIVE); Nitrite Urine UA POSITIVE (Negative); Occult Blood Urine UA NEGATIVE (Negative); Protein Urine UA TRACE (Negative); Specific Gravity Urine UA 1.025 (1.000-1.035); Urobilinogen Urine UA 0.2 E.U./dL (0.2); pH Urine UA 5.5 (4.5-8.0)
[2020-06-05 14:58] LABS: Bacteria Urine Many (>30); Culture Indicated Urine Specimen Cultured; RBC Urine 1-5/HPF (0-5/HPF); Squamous Epithelial Cell Urine 0-1 /HPF (0-5/HPF); WBC Urine None Seen (0-5/HPF)
== END ==
PROVIDERS: PCP Internal Medicine; Referring Provider Specialist; Visit Provider Specialist
DX: N39.0 Urinary tract infection, site not specified (principal)
CPT/HCPCS: 81003; 81015; 87077; 87086; 87186

== ENCOUNTER → 2020-07-05 13:38 | Outpatient (CLI) | payer MEDICARE, SELFPAY ==
[2020-07-05 14:40] LABS: Appearance Urine UA CLEAR; Bilirubin Urine UA NEGATIVE (NEGATIVE); Color Urine UA YELLOW; Glucose Urine UA NEGATIVE (Negative); Ketones Urine UA NEGATIVE (NEGATIVE); Leukocyte Esterase Urine UA NEGATIVE (NEGATIVE); Nitrite Urine UA NEGATIVE (Negative); Occult Blood Urine UA TRACE-INTACT (Negative); Protein Urine UA 1+ (Negative); Specific Gravity Urine UA 1.025 (1.000-1.035); Urobilinogen Urine UA 0.2 E.U./dL (0.2); pH Urine UA 5.5 (4.5-8.0)
== END ==
PROVIDERS: PCP Internal Medicine; Referring Provider Specialist; Visit Provider Specialist
DX: Z87.440 Personal history of urinary (tract) infections (principal)
CPT/HCPCS: 81003

== ENCOUNTER → 2020-07-18 09:40 | Outpatient (CLI) | payer MEDICARE, SELFPAY ==
[2020-07-18 12:11] LABS: Hemoglobin A1C% w Est Avg Glu 7.2 % (4.0-6.0)
[2020-07-18 12:12] LABS: Add Manual Diff / Slide Review NO; Basophils Absolute Auto 0 /uL (0-100); Basophils Percent Auto 0.5 % (0-2); Eosinophils Absolute Auto 100 /uL (0-450); Eosinophils Percent Auto 1.6 % (2-4); Hemoglobin 12.3 g/dL (13.5-17.5); Lymphocytes Absolute Auto 500 /uL (1100-4500); Lymphocytes Percent Auto 6.8 % (25-40); Mean Corpuscular HGB Conc 34.3 % (30-36); Mean Corpuscular Hemoglobin 35.6 PG (26-34); Mean Corpuscular Volume 103.8 fL (80-100); Monocytes Absolute Auto 400 /uL (0-900); Monocytes Percent Auto 6.2 % (3-14); Neutrophils Absolute Auto 5800 /uL (1500-7000); Neutrophils Percent Auto 84.9 % (50-75); Platelet Count 218 X10^3/uL (150-400); Red Blood Cell Count 3.47 X10^6/uL (4.5-5.9); Red Cell Distribution Width 17.2 % (11.6-14.8); White Blood Cell Count 6.8 X10^3/uL (4.5-11.0)
[2020-07-18 12:13] LABS: Alanine Aminotransferase 18 IU/L (<50); Albumin 4.3 g/dL (3.5-5.0); Albumin Globulin Ratio 1.2 (1.0-2.8); Alkaline Phosphatase 81 U/L (38-126); Aspartate Aminotransferase 25 IU/L (17-59); BUN Creatinine Ratio 18.3 (6-22); Bilirubin Total 0.5 mg/dL (0.2-1.3); Blood Urea Nitrogen 22 mg/dL (9-20); Calcium 9.3 mg/dL (8.4-10.2); Carbon Dioxide 36 mmol/L (22-32); Chloride 100 mmol/L (98-107); Estimated Glomerular Filt Rate 59.9 mL/min (>60); Globulin 3.5 g/dL (1.7-4.1); Glucose 114 mg/dL (80-110); HEMOLYSIS < 15 (0-50); Potassium 3.7 mmol/L (3.4-5.1); Sodium 139 mmol/L (137-145); Total Protein 7.8 g/dL (6.3-8.2)
[2020-07-18 13:06] LABS: HEMOLYSIS < 15 (0-50); Iron 71 ug/dL (49-181)
[2020-07-18 13:17] LABS: Percent Iron Saturation 25 % (20-50); Total Iron Binding Capacity 282 ug/dL (261-462); Transferrin 204 mg/dL (206-381)
== END ==
PROVIDERS: PCP Internal Medicine; Referring Provider Internal Medicine; Visit Provider Internal Medicine
DX: E11.21 Type 2 diabetes mellitus with diabetic nephropathy (principal); K90.0 Celiac disease; D64.9 Anemia, unspecified
CPT/HCPCS: 36415; 80053; 83036; 83540; 83550; 85025

== ENCOUNTER → 2020-08-31 09:09 | Outpatient (CLI) | payer MEDICARE, SELFPAY ==
[2020-08-31 10:37] LABS: Add Manual Diff / Slide Review NO; Basophils Absolute Auto 0 /uL (0-100); Basophils Percent Auto 0.6 % (0-2); Eosinophils Absolute Auto 100 /uL (0-450); Eosinophils Percent Auto 2.5 % (2-4); Hematocrit 36.6 % (41-53); Hemoglobin 12.6 g/dL (13.5-17.5); Lymphocytes Absolute Auto 500 /uL (1100-4500); Lymphocytes Percent Auto 9.2 % (25-40); Mean Corpuscular HGB Conc 34.4 % (30-36); Mean Corpuscular Hemoglobin 36.5 PG (26-34); Mean Corpuscular Volume 106.1 fL (80-100); Monocytes Absolute Auto 300 /uL (0-900); Monocytes Percent Auto 5.7 % (3-14); Neutrophils Absolute Auto 4800 /uL (1500-7000); Platelet Count 184 X10^3/uL (150-400); Red Blood Cell Count 3.45 X10^6/uL (4.5-5.9); Red Cell Distribution Width 16.4 % (11.6-14.8); White Blood Cell Count 5.8 X10^3/uL (4.5-11.0)
[2020-08-31 11:01] LABS: BUN Creatinine Ratio 27.6 (6-22); Blood Urea Nitrogen 35 mg/dL (9-20); Calcium 9.3 mg/dL (8.4-10.2); Carbon Dioxide 34 mmol/L (22-32); Chloride 101 mmol/L (98-107); Estimated Glomerular Filt Rate 56.1 mL/min (>60); Glucose 192 mg/dL (80-110); HEMOLYSIS < 15 (0-50); Potassium 3.8 mmol/L (3.4-5.1); Sodium 141 mmol/L (137-145)
== END ==
PROVIDERS: PCP Internal Medicine; Referring Provider Internal Medicine Cardiovascular Disease; Visit Provider Internal Medicine Cardiovascular Disease
DX: I25.10 Atherosclerotic heart disease of native coronary artery without angina pectoris (principal)
CPT/HCPCS: 36415; 80048; 85025

== ENCOUNTER → 2020-10-30 10:02 | Outpatient (CLI) | payer OTHER, SELFPAY ==
[2020-10-30 11:05] LABS: Appearance Urine UA CLEAR; Bilirubin Urine UA NEGATIVE (NEGATIVE); Color Urine UA YELLOW; Glucose Urine UA NEGATIVE (Negative); Ketones Urine UA NEGATIVE (NEGATIVE); Leukocyte Esterase Urine UA TRACE (NEGATIVE); Nitrite Urine UA POSITIVE (Negative); Occult Blood Urine UA TRACE-INTACT (Negative); Protein Urine UA 1+ (Negative); Specific Gravity Urine UA 1.025 (1.000-1.035); Urobilinogen Urine UA 0.2 E.U./dL (0.2); pH Urine UA 5.5 (4.5-8.0)
[2020-10-30 11:22] LABS: Bacteria Urine Many (>30); Culture Indicated Urine Specimen Cultured; RBC Urine 1-5/HPF (0-5/HPF); WBC Urine 5-10/HPF (0-5/HPF)
== END ==
PROVIDERS: PCP Internal Medicine; Referring Provider Specialist; Visit Provider Specialist
DX: N39.0 Urinary tract infection, site not specified (principal)
CPT/HCPCS: 81003; 81015; 87077; 87086; 87186

== ENCOUNTER → 2020-11-22 12:55 | Outpatient (CLI) | payer OTHER, SELFPAY ==
[2020-11-22 13:41] LABS: Add Manual Diff / Slide Review NO; Basophils Absolute Auto 0 /uL (0-100); Basophils Percent Auto 0.2 % (0-2); Eosinophils Absolute Auto 100 /uL (0-450); Eosinophils Percent Auto 2.4 % (2-4); Hemoglobin 13.2 g/dL (13.5-17.5); Lymphocytes Absolute Auto 400 /uL (1100-4500); Mean Corpuscular HGB Conc 34.8 % (30-36); Mean Corpuscular Hemoglobin 36.7 PG (26-34); Mean Corpuscular Volume 105.7 fL (80-100); Monocytes Absolute Auto 400 /uL (0-900); Monocytes Percent Auto 6.5 % (3-14); Neutrophils Absolute Auto 5100 /uL (1500-7000); Neutrophils Percent Auto 84.9 % (50-75); Platelet Count 177 X10^3/uL (150-400); Red Cell Distribution Width 16.2 % (11.6-14.8)
[2020-11-22 14:15] LABS: Alanine Aminotransferase 22 IU/L (<50); Albumin 4.1 g/dL (3.5-5.0); Albumin Globulin Ratio 1.3 (1.0-2.8); Alkaline Phosphatase 85 U/L (38-126); Aspartate Aminotransferase 29 IU/L (17-59); BUN Creatinine Ratio 17.5 (6-22); Bilirubin Total 0.5 mg/dL (0.2-1.3); Blood Urea Nitrogen 18 mg/dL (9-20); Carbon Dioxide 33 mmol/L (22-32); Chloride 100 mmol/L (98-107); Estimated Glomerular Filt Rate > 60.0 mL/min (>60); Globulin 3.2 g/dL (1.7-4.1); Glucose 206 mg/dL (80-110); HEMOLYSIS < 15 (0-50); Potassium 3.5 mmol/L (3.4-5.1); Sodium 139 mmol/L (137-145); Total Protein 7.3 g/dL (6.3-8.2)
[2020-11-22 14:37] LABS: Hemoglobin A1C% w Est Avg Glu 6.9 % (4.0-6.0)
[2020-11-22 15:28] LABS: Creatinine Urine Random 206.9 mg/dL
[2020-11-22 21:17] LABS: Microalbumi Creatinin Ratio Ur 372.6 ug/mg CR (<30); Microalbumin Urine Random 77.1 mg/dL (0-1.6)
== END ==
PROVIDERS: PCP Internal Medicine; Referring Provider Internal Medicine; Visit Provider Internal Medicine
DX: I48.91 Unspecified atrial fibrillation (principal); E11.40 Type 2 diabetes mellitus with diabetic neuropathy, unspecified; E11.21 Type 2 diabetes mellitus with diabetic nephropathy
CPT/HCPCS: 36415; 80053; 82043; 82570; 83036; 85025

== ENCOUNTER → 2021-01-01 11:48 | Outpatient (CLI) | payer OTHER, SELFPAY ==
[2021-01-01 12:56] LABS: Albumin 4.5 g/dL (3.5-5.0); BUN Creatinine Ratio 18.4 (6-22); Blood Urea Nitrogen 21 mg/dL (9-20); Calcium 9.9 mg/dL (8.4-10.2); Carbon Dioxide 32 mmol/L (22-32); Chloride 101 mmol/L (98-107); Estimated Glomerular Filt Rate > 60.0 mL/min (>60); Glucose 187 mg/dL (80-110); HEMOLYSIS < 15 (0-50); Phosphorous 3.5 mg/dL (2.3-3.7); Potassium 3.7 mmol/L (3.4-5.1); Sodium 142 mmol/L (137-145)
== END ==
PROVIDERS: PCP Internal Medicine; Referring Provider Otolaryngology; Visit Provider Otolaryngology
DX: E11.9 Type 2 diabetes mellitus without complications (principal)
CPT/HCPCS: 36415; 80069

== ENCOUNTER → 2021-01-06 11:28 | Outpatient (CLI) | payer OTHER, SELFPAY ==
--- NOTE | 2021-01-06 | DI.CT.S_ITS ---
PROCEDURE: CT SOFT TISSUE NECK WO/W CON INDICATIONS: MASS TECHNIQUE: Before and after the administration of intravenous contrast, 2.0 mm axial sections acquired through the neck and down to the kennedy. Additional 2.0 mm coronal and sagittal reformats were generated of the contrast enhanced images. For radiation dose reduction, the following was used: automated exposure control. COMPARISON: None. FINDINGS: Image quality: Excellent. 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 It measures 4.1 x 4.1 x 2.5 cm. Abscess is felt to be unlikely. The mass extends into the subcutaneous fat immediately beneath the skin. Slightly anterior to the relatively inferior aspect of the mass, adjacent to the mandible, is a ovoid structure which likely represents an involved lymph node. This measures 0.9 x 1.3 x 1.0 cm. There is an associated enlarged lymph node in the anterior right cervical chain measuring 2.8 x 1.5 x 2.2 cm. Left parotid is unremarkable. Thyroid: Heterogeneous without a well-defined nodule. Lymph nodes: Slightly anterior to the relatively inferior aspect of the mass, adjacent to the mandible, is a ovoid structure which likely represents an involved lymph node. This measures 0.9 x 1.3 x 1.0 cm. There is an associated enlarged lymph node in the anterior right cervical chain measuring 2.8 x 1.5 x 2.2 cm. No left-sided enlarged lymph nodes. Vessels: Visualized vasculature appears patent. Neck spaces: The oropharynx, nasopharynx, and pharynx demonstrate no mucosal lesions. The vocal cords, false vocal cords, pyriform sinuses, epiglottis, vallecula, and tongue base all appear normal. Extramucosal spaces appear unremarkable. Glands: The parotid and submandibular glands appear normal. Miscellaneous: Visualized lungs appear clear. Superficial soft tissues appear normal. Bones: No suspicious bony lesions. Visualized sinuses and mastoids appear unremarkable. IMPRESSION: 1. 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 Parotid region abscess is felt to be unlikely based on imaging characteristics. Comment: This mass would be easily amenable to ultrasound-guided FNA if desired. PET-CT may also be helpful. Dictated by: Rashawn Mcgregor M.D. on 01/06/2021 at 12:15 Approved by: Rashawn Mcgregor M.D. on 01/06/2021 at 12:27
== END ==
PROVIDERS: PCP Internal Medicine; Referring Provider Otolaryngology; Visit Provider Otolaryngology
DX: R22.1 Localized swelling, mass and lump, neck (principal)
CPT/HCPCS: 70492; Q9967

== ENCOUNTER → 2021-02-27 09:30 | Outpatient (CLI) | payer OTHER, SELFPAY ==
[2021-02-27 10:16] LABS: Add Manual Diff / Slide Review NO; Basophils Absolute Auto 0 /uL (0-100); Basophils Percent Auto 0.6 % (0-2); Eosinophils Absolute Auto 100 /uL (0-450); Eosinophils Percent Auto 1.8 % (2-4); Hematocrit 34.3 % (41-53); Hemoglobin 11.9 g/dL (13.5-17.5); Lymphocytes Absolute Auto 400 /uL (1100-4500); Mean Corpuscular HGB Conc 34.6 % (30-36); Mean Corpuscular Hemoglobin 36.7 PG (26-34); Mean Corpuscular Volume 106.2 fL (80-100); Monocytes Absolute Auto 400 /uL (0-900); Monocytes Percent Auto 7.3 % (3-14); Neutrophils Absolute Auto 4900 /uL (1500-7000); Neutrophils Percent Auto 83.3 % (50-75); Platelet Count 223 X10^3/uL (150-400); Red Blood Cell Count 3.23 X10^6/uL (4.5-5.9); Red Cell Distribution Width 16.2 % (11.6-14.8); White Blood Cell Count 5.9 X10^3/uL (4.5-11.0)
[2021-02-27 10:25] LABS: Hemoglobin A1C% w Est Avg Glu 6.4 % (4.0-6.0)
[2021-02-27 10:45] LABS: Alanine Aminotransferase 17 IU/L (<50); Albumin Globulin Ratio 1.1 (1.0-2.8); Alkaline Phosphatase 86 U/L (38-126); Aspartate Aminotransferase 27 IU/L (17-59); Bilirubin Total 0.4 mg/dL (0.2-1.3); Blood Urea Nitrogen 22 mg/dL (9-20); Calcium 9.5 mg/dL (8.4-10.2); Carbon Dioxide 31 mmol/L (22-32); Chloride 101 mmol/L (98-107); Estimated Glomerular Filt Rate 58.7 mL/min (>60); Globulin 3.6 g/dL (1.7-4.1); Glucose 147 mg/dL (80-110); HEMOLYSIS < 15 (0-50); Potassium 3.9 mmol/L (3.4-5.1); Sodium 140 mmol/L (137-145); Total Protein 7.6 g/dL (6.3-8.2)
== END ==
PROVIDERS: PCP Internal Medicine; Referring Provider Internal Medicine; Visit Provider Internal Medicine
DX: E11.9 Type 2 diabetes mellitus without complications (principal); D64.9 Anemia, unspecified; E11.21 Type 2 diabetes mellitus with diabetic nephropathy
CPT/HCPCS: 36415; 80053; 83036; 85025

== ENCOUNTER → 2021-03-20 10:28 | Outpatient (CLI) | payer OTHER, SELFPAY | PROVIDERS: PCP Internal Medicine; Referring Provider Specialist; Visit Provider Specialist | DX: E78.5 Hyperlipidemia, unspecified (principal) | CPT/HCPCS: 87077; 87086; 87186 ==

== ENCOUNTER → 2021-04-08 10:12 | Outpatient (CLI) | payer OTHER, SELFPAY ==
[2021-04-08 11:48] LABS: Add Manual Diff / Slide Review NO; Basophils Absolute Auto 0 /uL (0-100); Basophils Percent Auto 0.4 % (0-2); Eosinophils Absolute Auto 200 /uL (0-450); Eosinophils Percent Auto 3.8 % (2-4); Hematocrit 35.9 % (41-53); Hemoglobin 12.1 g/dL (13.5-17.5); Lymphocytes Absolute Auto 300 /uL (1100-4500); Lymphocytes Percent Auto 6.3 % (25-40); Mean Corpuscular HGB Conc 33.8 % (30-36); Mean Corpuscular Hemoglobin 35.5 PG (26-34); Mean Corpuscular Volume 104.9 fL (80-100); Monocytes Absolute Auto 300 /uL (0-900); Monocytes Percent Auto 5.1 % (3-14); Neutrophils Absolute Auto 4500 /uL (1500-7000); Neutrophils Percent Auto 84.4 % (50-75); Platelet Count 182 X10^3/uL (150-400); Red Blood Cell Count 3.42 X10^6/uL (4.5-5.9); Red Cell Distribution Width 16.6 % (11.6-14.8); White Blood Cell Count 5.3 X10^3/uL (4.5-11.0)
[2021-04-08 12:02] LABS: BUN Creatinine Ratio 22.4 (6-22); Blood Urea Nitrogen 22 mg/dL (9-20); Calcium 9.5 mg/dL (8.4-10.2); Carbon Dioxide 31 mmol/L (22-32); Chloride 102 mmol/L (98-107); Estimated Glomerular Filt Rate > 60.0 mL/min (>60); Glucose 231 mg/dL (80-110); HEMOLYSIS < 15 (0-50); Sodium 141 mmol/L (137-145)
[2021-04-08 12:09] LABS: BUN Creatinine Ratio 21.8 (6-22); Blood Urea Nitrogen 22 mg/dL (9-20); Calcium 9.6 mg/dL (8.4-10.2); Carbon Dioxide 31 mmol/L (22-32); Chloride 103 mmol/L (98-107); Estimated Glomerular Filt Rate > 60.0 mL/min (>60); Glucose 229 mg/dL (80-110); HEMOLYSIS < 15 (0-50); Potassium 4.1 mmol/L (3.4-5.1); Sodium 141 mmol/L (137-145)
[2021-04-08 12:32] LABS: Prostate Specific Antigen 1.01 ng/mL (0.10-4.00)
== END ==
PROVIDERS: Specialist; PCP Internal Medicine; Referring Provider Internal Medicine Cardiovascular Disease; Visit Provider Internal Medicine Cardiovascular Disease
DX: R33.9 Retention of urine, unspecified (principal); I10 Essential (primary) hypertension
CPT/HCPCS: 36415; 80048; 84153; 85025

== ENCOUNTER → 2021-04-24 15:40 | Outpatient (CLI) | payer OTHER, SELFPAY ==
--- NOTE | 2021-04-24 | DI.ECHO.S_ITS ---
[facility]---------[facility] +---------+ : : [address] : : : : [id number] : : : : Phone: [phone]+ Echocardiogram Report + + :Name: MALINDA AMARAL Study Date: 04/24/2021 Height: 76 in : :[facility] ReadingLocation: Weight: 235 lb : : Gender: Male BSA: 2.4 m2 : :: 1950 Age: 70 yrs BP: 131/72 mmHg: :Reason For Study: CARDIOMYOPATHY : :Ordering Physician: NISHA, : :RIKKI Performed By: Kristie Winston : :Referring: RIKKI DEJESUS : + + Interpretation Summary 1) Mildly to moderately enlarged left ventricle with mildly to moderately reduced systolic function (EF 40-45%). 2) Apical wall motion abnormality may reflect pacemaker activation or ischemia. 3) Mildly enlarged right ventricle with mildly reduced function. Pacemaker lead visualized in the RV. 4) There is mild to moderate aortic regurgitation. 5) There is mild to moderate mitral regurgitation. 6) The ascending aorta is mildly enlarged at 4.2cm 7) Compared to the Echo done 04/13/2019, LVEF has decreased from 50-55% to 40- 45% on this study. Procedure: A two-dimensional transthoracic echocardiogram with color flow and Doppler was performed. The study quality was technically adequate. Comparison is made with the echocardiogram of 04/13/2019. The patient has a paced rhythm. The heart rate ranged between 77-82 bpm during the study. Left Ventricle: Left ventricular wall thickness is mildly increased. The estimated left ventricular end diastolic volume is 175 ml. The left ventricle is mild-moderately dilated. The ejection fraction is estimated to be 40-45%. Apical wall motion abnormality may reflect pacemaker activation. Diastolic function could not be accurately assessed due to paced rhythm. Right Ventricle: The right ventricle is mildly dilated. There is a pacemaker lead in the right ventricle. Right ventricular systolic function is mildly reduced. Atria: The left atrium is mildly dilated. Right atrial size is normal. There is a catheter/pacemaker lead seen in the right atrium. There is no Doppler evidence for an interatrial shunt. Mitral Valve: The mitral valve leaflets appear mildly thickened, but open well. There is mild mitral annular calcification. There is mild to moderate mitral regurgitation. Aortic Valve: The aortic valve is trileaflet. The aortic valve opens well. There is no aortic valve stenosis. There is mild to moderate aortic regurgitation. Tricuspid Valve: The tricuspid valve is normal in structure and function. There is mild tricuspid regurgitation. The right ventricular systolic pressure is estimated to be at least 24 mmHg based on an estimated right atrial pressure of 3 mm Hg. Pulmonic Valve: The pulmonic valve leaflets are thin and pliable; valve motion is normal. There is no pulmonic valvular regurgitation. Great Vessels: The aortic root is mildly dilated. The ascending aorta is mildly enlarged. The IVC is of normal diameter and collapses greater than 50% with a sniff. This suggests a low right atrial pressure of 3 mm Hg. Pericardium/ Pleura There is no pericardial effusion. There is no pleural effusion. MMode/2D Measurements & Calculations LVIDd: 6.8 cm LVOT diam: 2.4 cm LVIDs: 4.9 cm Ao root diam: 4.1 cm FS: 28.5 % asc Aorta Diam: 4.2 cm IVSd: 1.5 cm Ao Arch Diam (Prox Trans): 4.0 cm LVPWd: 1.5 cm LV hua. diameter/BSA (cm/m^2): 2.9 LV sys. diameter/BSA (cm/m^2): 2.0 LA A2 area: 22.1 cm2 RA long axis: 5.6 cm LA A4 area: 24.5 cm2 RA area: 20.9 cm2 LA length (vol): 5.7 cm RA vol: 66.4 ml LA vol: 80.6 ml RA : 28.0 ml/m2 LA vol index: 34.0 ml/m2 IVC diam: 1.4 cm RVD1 (basal): 4.2 cm TAPSE: 2.2 cm Doppler Measurements & Calculations Ao V2 max: 124.0 cm/sec LVOT Max Alok: 63.8 cm/sec Ao V2 mean: 87.3 cm/sec LV V1 max P.6 mmHg Ao max P.2 mmHg LV V1 VTI: 13.4 cm Ao mean P.4 mmHg BRODERICK(I,D): 2.7 cm2 Ao V2 VTI: 21.9 cm BRODERICK(V,D): 2.3 cm2 sev ratio: 0.61 BRODERICK indexed to BSA (cm^2/m^2): 1.1 AI P1/2t: 435.0 msec AI dec slope: 287.2 cm/sec2 MV E max alok: 75.1 cm/sec TR max alok: 231.3 cm/sec MV A max alok: 106.3 cm/sec TR max P.4 mmHg MV E/A: 0.71 PA V2 max: 113.6 cm/sec Med Peak E' Alok: 5.3 cm/sec PA V2 mean: 76.1 cm/sec E/E' med: 14.3 PA mean P.7 mmHg Lat Peak E' Alok: 12.2 cm/sec PA pr(Accel): 34.5 mmHg E/E' lat: 6.2 E/e' average: 10.2 MV dec time: 0.24 sec MR ERO: 0.19 cm2 MR PISA: 3.2 cm2 SV(LVOT): 59.4 ml MR flow rate: 110.1 cm3/sec MR PISA radius: 0.72 cm Reading Physician:06:33 PM
== END ==
PROVIDERS: PCP Internal Medicine; Referring Provider Internal Medicine Cardiovascular Disease; Visit Provider Internal Medicine Cardiovascular Disease
DX: I08.3 Combined rheumatic disorders of mitral, aortic and tricuspid valves (principal); I42.8 Other cardiomyopathies; I77.810 Thoracic aortic ectasia
CPT/HCPCS: 93306

== ENCOUNTER 2021-05-15 14:57 | Emergency (ER) | payer OTHER, SELFPAY ==
[2021-05-15] VITALS (7 sets, daily range): BP systolic 133–148; BP diastolic 62–78; PULSE 76–83; RESP 16–24; TEMP 36.9; O2SAT 94–99; BMI 29.7
[2021-05-15 15:36] LABS: Add Manual Diff / Slide Review NO; Basophils Absolute Auto 0 /uL (0-100); Basophils Percent Auto 0.2 % (0-2); Eosinophils Absolute Auto 0 /uL (0-450); Hematocrit 32.7 % (41-53); Hemoglobin 11.1 g/dL (13.5-17.5); Lymphocytes Absolute Auto 100 /uL (1100-4500); Lymphocytes Percent Auto 1.1 % (25-40); Mean Corpuscular HGB Conc 33.9 % (30-36); Mean Corpuscular Hemoglobin 35.6 PG (26-34); Mean Corpuscular Volume 105.1 fL (80-100); Monocytes Absolute Auto 700 /uL (0-900); Monocytes Percent Auto 5.4 % (3-14); Neutrophils Absolute Auto 11500 /uL (1500-7000); Neutrophils Percent Auto 93.3 % (50-75); Platelet Count 224 X10^3/uL (150-400); Red Blood Cell Count 3.12 X10^6/uL (4.5-5.9); Red Cell Distribution Width 17.1 % (11.6-14.8); White Blood Cell Count 12.3 X10^3/uL (4.5-11.0)
[2021-05-15 15:37] LABS: INR 1.5 (0.9-1.3); Prothrombin Time 16.4 SECONDS (10.1-12.7)
[2021-05-15 15:50] LABS: Alanine Aminotransferase 32 IU/L (<50); Albumin 3.9 g/dL (3.5-5.0); Albumin Globulin Ratio 1.1 (1.0-2.8); Alkaline Phosphatase 92 U/L (38-126); Aspartate Aminotransferase 31 IU/L (17-59); BUN Creatinine Ratio 32.7 (6-22); Bilirubin Total 0.4 mg/dL (0.2-1.3); Blood Urea Nitrogen 35 mg/dL (9-20); Calcium 9.4 mg/dL (8.4-10.2); Carbon Dioxide 26 mmol/L (22-32); Chloride 101 mmol/L (98-107); Estimated Glomerular Filt Rate > 60.0 mL/min (>60); Globulin 3.6 g/dL (1.7-4.1); Glucose 262 mg/dL (80-110); HEMOLYSIS < 15 (0-50); Potassium 4.7 mmol/L (3.4-5.1); Sodium 136 mmol/L (137-145); Total Protein 7.5 g/dL (6.3-8.2)
--- NOTE | 2021-05-15 16:01 | ED_ITS ---
HPI - General Adult General Chief complaint: Diabetic Problem Stated complaint: blood sugars off from chemo, dehydration Time Seen by Provider: 05/15/21 15:46 History of Present Illness HPI narrative: Patient is a 70-year-old male. A couple days ago he did receive his scheduled dose of chemotherapy. He also received radiation within the past 24 hours. He is here for evaluation because his blood sugars have been elevated. He is an insulin-dependent diabetic. He takes insulin at night. He does admit that he does not take his blood sugars very often. He was not feeling well today during his radiation treatment. The checked his blood sugar was elevated. He reports generalized malaise. No chest pain. No shortness of breath. No cough. No fevers. No urinary symptoms. No rashes. No abdominal pain. Related Data Home Medications Medication Instructions Recorded Confirmed allopurinol 100 mg tablet 150 mg PO DAILY 10/18/18 04/17/21 carvedilol 25 mg tablet 25 mg PO BID 10/18/18 04/17/21 cetirizine 10 mg tablet 10 mg PO DAILY PRN 10/18/18 04/17/21 fluticasone propionate 50 1 spray INTRANASAL DAILY PRN 10/18/18 04/17/21 mcg/actuation nasal spray,suspension hydrochlorothiazide 25 mg tablet 25 mg PO DAILY 10/18/18 04/17/21 lisinopril 20 mg tablet 20 mg PO DAILY 10/18/18 04/17/21 potassium chloride 10 mEq 20 meq PO DAILY 10/18/18 04/17/21 tablet,extended release (K-Tab) azathioprine 50 mg tablet 100 mg PO DAILY 11/24/18 04/17/21 amlodipine 10 mg tablet 10 mg PO DAILY 06/13/19 04/17/21 rosuvastatin 5 mg tablet mg 06/13/19 04/17/21 amoxicillin 500 mg capsule 500 mg PO BID 04/17/21 04/17/21 Previous Rx's Medication Instructions Recorded methenamine hippurate 1 gram 1 g PO BID #180 tab 04/04/21 tablet (Hiprex) Allergies Allergy/AdvReac Type Severity Reaction Status Date / Time fluorouracil Allergy Verified 04/17/21 10:32 caffeine AdvReac sensitivity Verified 04/17/21 10:35 Review of Systems Constitutional Constitutional: Reports chills, Denies fever(s) and Reports malaise Cardiovascular Cardiovascular: Reports system reviewed and no additional complaints, except as documented Respiratory Respiratory: Reports system reviewed and no additional complaints, except as documented Gastrointestinal Gastrointestinal: Reports system reviewed and no additional complaints, except as documented Genitourinary Genitourinary: Reports system reviewed and no additional complaints, except as documented Musculoskeletal Musculoskeletal: Reports system reviewed and no additional complaints, except as documented Integumentary/Breasts Skin/Breast: Denies rash Neurologic Neurologic: Reports system reviewed and no additional complaints, except as documented Endocrine Endocrine: Reports system reviewed and no additional complaints, except as documented Hematologic/Lymphatic On Anticoagulants: No Allergic/Immunologic Allergic/Immunologic: Reports system reviewed and no additional complaints, except as documented Patient History Medical History Celiac disease Congestive heart failure Diabetes Encounter for insertion of cardiac resynchronization therapy pacemaker Gout History of recurrent UTI (urinary tract infection) Hypertension Intermittent self-catheterization of bladder Kidney stones Neurogenic bladder Neurogenic bladder, flaccid Pacemaker Rectal cancer Urinary calculi Urinary retention Urinary retention UTI (urinary tract infection) Surgical History H/O colectomy Social History lives independently: Yes Smoking Status: Never smoker Smoking Status: Never smoker alcohol intake frequency: holidays/special occasions only Substance Use Type: marijuana Exam Initial Vital Signs Initial Vital Signs: Vital Signs Temperature 98.5 F 05/15/21 15:04 Pulse Rate 83 05/15/21 15:04 Respiratory Rate 16 05/15/21 15:04 Blood Pressure 143/70 H 05/15/21 15:04 Pulse Oximetry 97 05/15/21 15:04 Const General: cooperative, healthy appearing, comfortable and well developed [place] Head: normal to inspection and normocephalic Resp Effort & Inspection: normal respiratory effort Auscultation: clear to auscultation bilaterally Cardio Rate: regular rate Rhythm: regular rhythm GI Inspection: normal to inspection Skin General: no rashes or lesions noted Neuro General: patient alert, patient awake, patient oriented x3 and moves all extremities Extrem General: normal to inspection and capillary refill normal Psych Appearance: grossly normal and well kempt Course Orders Ordered: ED Orders 05/15/21 15:16 Complete Blood Count AUTO DIFF Stat Comprehensive Metabolic Panel Stat Lactate (Lactic Acid) Stat Prothrombin Time INR Stat Troponin & CK Cardiac Panel Stat 05/15/21 16:06 EKG-12 Lead Stat 05/15/21 16:57 Blood Culture Stat Vital Signs Vital signs: Vital Signs - 8 hr 05/15/21 15:04 05/15/21 15:35 05/15/21 16:00 Temperature 98.5 F Pulse Rate 83 76 79 Respiratory Rate 16 Blood Pressure 143/70 H 134/63 141/65 H Pulse Oximetry 97 95 95 Medical Decision Making Medical Records Medical records reviewed: Yes I reviewed the patient's medical records. Lab Data Lab results reviewed: Yes I reviewed the patient's lab results. Result diagrams: 05/15/21 15:16 05/15/21 15:16 Labs: Lab Results 05/15/21 05/15/21 05/15/21 Range/Units 15:16 15:16 15:16 WBC 12.3 H (4.5-11.0) X10^3/uL RBC 3.12 L (4.5-5.9) X10^6/uL Hgb 11.1 L (13.5-17.5) g/dL Hct 32.7 L (41-53) % MCV 105.1 H (80-100) fL MCH 35.6 H (26-34) PG MCHC 33.9 (30-36) % RDW 17.1 H (11.6-14.8) % Plt Count 224 (150-400) X10^3/uL Neut % (Auto) 93.3 H (50-75) % Lymph % (Auto) 1.1 L (25-40) % [place] % (Auto) 5.4 (3-14) % Eos % (Auto) 0.0 L (2-4) % Baso % (Auto) 0.2 (0-2) % Neut # (Auto) 52020 H (5852-4702) /uL Lymph # (Auto) 100 L (9585-7742) /uL [place] # (Auto) 700 (0-900) /uL Eos # (Auto) 0 (0-450) /uL Baso # (Auto) 0 (0-100) /uL PT 16.4 H (10.1-12.7) SECONDS INR 1.5 H (0.9-1.3) Sodium 136 L (137-145) mmol/L Potassium 4.7 (3.4-5.1) mmol/L Chloride 101 (98-107) mmol/L Carbon Dioxide 26 (22-32) mmol/L BUN 35 H (9-20) mg/dL Creatinine 1.07 (0.66-1.25) mg/dL Estimated GFR > 60.0 (>60) mL/min BUN/Creatinine Ratio 32.7 H (6-22) Glucose 262 H (80-110) mg/dL Lactate (0.7-2.1) mmol/L Calcium 9.4 (8.4-10.2) mg/dL Total Bilirubin 0.4 (0.2-1.3) mg/dL AST 31 (17-59) IU/L ALT 32 (<50) IU/L Alkaline Phosphatase 92 (38-126) U/L Total Creatine Kinase (55-170) U/L CK-MB (CK-2) CK-MB (CK-2) Rel Index Troponin I (0.01-0.034) ng/mL Total Protein 7.5 (6.3-8.2) g/dL Albumin 3.9 (3.5-5.0) g/dL Globulin 3.6 (1.7-4.1) g/dL Albumin/Globulin Ratio 1.1 (1.0-2.8) 05/15/21 05/15/21 Range/Units 15:16 15:16 WBC (4.5-11.0) X10^3/uL RBC (4.5-5.9) X10^6/uL Hgb (13.5-17.5) g/dL Hct (41-53) % MCV (80-100) fL MCH (26-34) PG MCHC (30-36) % RDW (11.6-14.8) % Plt Count (150-400) X10^3/uL Neut % (Auto) (50-75) % Lymph % (Auto) (25-40) % [place] % (Auto) (3-14) % Eos % (Auto) (2-4) % Baso % (Auto) (0-2) % Neut # (Auto) (4295-0769) /uL Lymph # (Auto) (2049-9594) /uL [place] # (Auto) (0-900) /uL Eos # (Auto) (0-450) /uL Baso # (Auto) (0-100) /uL PT (10.1-12.7) SECONDS INR (0.9-1.3) Sodium (137-145) mmol/L Potassium (3.4-5.1) mmol/L Chloride (98-107) mmol/L Carbon Dioxide (22-32) mmol/L BUN (9-20) mg/dL Creatinine (0.66-1.25) mg/dL Estimated GFR (>60) mL/min BUN/Creatinine Ratio (6-22) Glucose (80-110) mg/dL Lactate 2.4 H (0.7-2.1) mmol/L Calcium (8.4-10.2) mg/dL Total Bilirubin (0.2-1.3) mg/dL AST (17-59) IU/L ALT (<50) IU/L Alkaline Phosphatase (38-126) U/L Total Creatine Kinase 80 (55-170) U/L CK-MB (CK-2) TNP CK-MB (CK-2) Rel Index TNP Troponin I 0.020 (0.01-0.034) ng/mL Total Protein (6.3-8.2) g/dL Albumin (3.5-5.0) g/dL Globulin (1.7-4.1) g/dL Albumin/Globulin Ratio (1.0-2.8) ECG Data Attestation: I personally reviewed and interpreted this ECG as follows: Prior ECG tracings: not available for review Interpretation: Ventricular paced Rate is 77 MDM Narrative Medical decision making narrative: Patient is nontoxic appearing. He is afebrile. He does have a leukocytosis and a elevated lactate but there is no specific signs of any infection. I have low suspicion for pneumonia, he is afebrile, clear lung exam, no cough, is no abdominal tenderness, no dysuria, no skin rashes, patient does have an elevated blood sugar but he is not in DKA. Blood cultures were obtained. Attempted for approximately 1.5 hours to get a hold of Oncology to discuss potential antibiotics however we were unable to reach his on-call oncologist. I feel given his clinical presentation, how well he appears that patient could be discharged home. He was given strict return precautions. We will contact him if his blood cultures are positive. Patient's is at bedside for this discussion. They both expressed understanding and agreement. Discharge Plan Departure Patient Disposition: Home Clinical Impression: Hyperglycemia Instructions: DI for Hyperglycemia -- Adult Activity Restrictions/Additional Instructions: I do recommend that you continue to take all of your medications as directed to include giving yourself your insulin this evening. We did obtain blood cultures today. We will hold on any antibiotics for now. Please return to the emergency department for any new or worsening symptoms like we discussed. We will contact you if we need to start antibiotics based on the blood cultures. Contact your oncologist for follow-up. Return to the emergency department for any new or worsening symptoms Prescriptions: No Action methenamine hippurate [Hiprex] 1 gram tablet 1 g PO BID Qty: 180 RF: 3 carvedilol 25 mg Tablet 25 mg PO BID RF: 0 cetirizine 10 mg Tablet 10 mg PO DAILY PRN (Reason: Allergy Symptoms) RF: 0 lisinopril 20 mg Tablet 20 mg PO DAILY RF: 0 potassium chloride [K-Tab] 10 mEq Tablet Extended Release 20 meq PO DAILY RF: 0 allopurinol 100 mg Tablet 150 mg PO DAILY RF: 0 hydrochlorothiazide 25 mg Tablet 25 mg PO DAILY RF: 0 fluticasone propionate 50 mcg/actuation [place],Suspension 1 spray INTRANASAL DAILY PRN (Reason: Allergy Symptoms) RF: 0 amlodipine 10 mg tablet 10 mg PO DAILY RF: 0 rosuvastatin 5 mg tablet RF: 0 azathioprine 50 mg Tablet 100 mg PO DAILY RF: 0 amoxicillin 500 mg capsule 500 mg PO BID RF: 0 Referrals: Joel Solares MD [Primary Care Provider] -
[2021-05-15 16:16] LABS: Creatine Kinase 80 U/L (55-170)
[2021-05-15 16:17] LABS: Lactate (Lactic Acid) 2.4 mmol/L (0.7-2.1)
[2021-05-15 18:07] LABS: Reflexed Lactate in 2 Hours Y
[2021-05-15 18:51] LABS: Lactate 2HR (Lactic Acid Rflx) 2.5 mmol/L (0.7-2.1)
== END 2021-05-15 19:08 | disposition home or self-care (01) ==
PROVIDERS: Emergency Provider Emergency Medicine; PCP Internal Medicine; Referring Provider Internal Medicine
DX: E11.65 Type 2 diabetes mellitus with hyperglycemia (principal); Z79.4 Long term (current) use of insulin; R07.9 Chest pain, unspecified
CPT/HCPCS: 36415; 80053; 82550; 83605; 84484; 85025; 85610; 87040; 93005; 99283; 99284

== ENCOUNTER → 2021-08-25 16:56 | Outpatient (CLI) | payer OTHER, SELFPAY | PROVIDERS: PCP Internal Medicine; Visit Provider Nurse Practitioner Family | DX: N34.3 Urethral syndrome, unspecified (principal) | CPT/HCPCS: 87077; 87086; 87186 ==

== ENCOUNTER 2021-09-17 08:51 | Emergency (ER) | payer OTHER, SELFPAY ==
[2021-09-17] VITALS (21 sets, daily range): BP systolic 98–154; BP diastolic 56–82; PULSE 60–99; RESP 12–19; TEMP 36.6; O2SAT 94–100; BMI 27.6
--- NOTE | 2021-09-17 09:24 | ED.RECABL ---
HPI - Recheck/Abnormal Lab/Rx General Chief Complaint: Recheck/Abnormal Lab/Rx Stated Complaint: LOW BP X 4 DAYS Time Seen by Provider: 09/17/21 09:02 Source: patient Mode of arrival: Ambulatory History of Present Illness HPI narrative: Patient is a 71-year-old male. 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 Over the past couple months he has lost quite a bit of weight approximately 30 lb. He does have a history of high blood pressure. Approximately 1 week ago he had an episode where he became lightheaded. They took his blood pressure at the time. His systolic blood pressure was in the 90s. They contacted his offset printing pressmen. His offset printing pressmen took him off of his amlodipine. He is currently still taking carvedilol 25 mg 2 times a day, hydrochlorothiazide 25 mg daily in the morning and lisinopril 5 mg daily at night. Since the episode where he passed out they have been taking his blood pressures at home. They have list of these blood pressures. They have been running anywhere from 95-140s systolic over 40s-80s diastolic. Majority of the blood pressures have been 110's/70's. He states that this is low for him as he normally runs with a systolic in the 140s. He states that he has also been very fatigued. Has been having shortness of breath with exertion. No chest discomfort. He does have mouth sores which are improving but has had decrease in oral intake because of this. Attempted to contact his offset printing pressmen but they have not called him back. Related Data Home Medications Medication Instructions Recorded Confirmed allopurinol 100 mg tablet 150 mg PO DAILY 10/18/18 08/25/21 carvedilol 25 mg tablet 25 mg PO BID 10/18/18 08/25/21 cetirizine 10 mg tablet 10 mg PO DAILY PRN 10/18/18 08/25/21 fluticasone propionate 50 1 spray INTRANASAL DAILY PRN 10/18/18 08/25/21 mcg/actuation nasal spray,suspension hydrochlorothiazide 25 mg tablet 25 mg PO DAILY 10/18/18 08/25/21 lisinopril 20 mg tablet 20 mg PO DAILY 10/18/18 08/25/21 potassium chloride 10 mEq 20 meq PO DAILY 10/18/18 08/25/21 tablet,extended release (K-Tab) amlodipine 10 mg tablet 10 mg PO DAILY 06/13/19 08/25/21 rosuvastatin 5 mg tablet mg 06/13/19 08/25/21 amoxicillin 500 mg capsule 500 mg PO BID 04/17/21 08/25/21 Previous Rx's Medication Instructions Recorded methenamine hippurate 1 gram 1 g PO BID #180 tab 04/04/21 tablet (Hiprex) Allergies Allergy/AdvReac Type Severity Reaction Status Date / Time fluorouracil Allergy Verified 08/25/21 17:22 caffeine AdvReac sensitivity Verified 08/25/21 17:22 Review of Systems Constitutional Constitutional: Reports fatigue, Denies headache(s) and Reports lethargy ENT Ears, Nose, Mouth, and Throat: Reports as per HPI and Denies headache(s) Cardiovascular Cardiovascular: Reports system reviewed and no additional complaints, except as documented Respiratory Respiratory: Reports as per HPI and Reports system reviewed and no additional complaints, except as documented Gastrointestinal Gastrointestinal: Reports system reviewed and no additional complaints, except as documented Musculoskeletal Musculoskeletal: Reports system reviewed and no additional complaints, except as documented Integumentary/Breasts Skin/Breast: Reports system reviewed and no additional complaints, except as documented Neurologic Neurologic: Reports system reviewed and no additional complaints, except as documented, Reports as per HPI and Denies headache(s) Endocrine Endocrine: Reports fatigue Hematologic/Lymphatic On Anticoagulants: No Allergic/Immunologic Allergic/Immunologic: Reports system reviewed and no additional complaints, except as documented Patient History Medical History Celiac disease Congestive heart failure Diabetes Encounter for insertion of cardiac resynchronization therapy pacemaker Gout History of recurrent UTI (urinary tract infection) Hypertension Intermittent self-catheterization of bladder Kidney stones Neurogenic bladder Neurogenic bladder, flaccid Pacemaker Rectal cancer Urinary calculi Urinary retention Urinary retention UTI (urinary tract infection) Surgical History H/O colectomy Social History lives independently: Yes Smoking Status: Never smoker Smoking Status: Never smoker alcohol intake frequency: holidays/special occasions only Substance Use Type: marijuana Exam Initial Vital Signs Initial Vital Signs: Vital Signs Pulse Rate 69 09/17/21 09:00 Pulse Oximetry 99 09/17/21 09:00 Const General: comfortable and well developed Limitations: mental status not altered HENMT Head: normal to inspection and normocephalic Chest Chest: normal inspection of the chest Resp Effort & Inspection: normal respiratory effort Auscultation: clear to auscultation bilaterally Cardio Rate: regular rate Rhythm: regular rhythm GI Inspection: non-distended Palpation: soft and No tender Skin General: no rashes or lesions noted Neuro General: patient alert, patient awake, patient oriented x3 and moves all extremities Cognition: normal cognition Extrem General: capillary refill normal Psych Appearance: grossly normal and well kempt Course Orders Ordered: ED Orders 09/17/21 09:11 EKG-12 Lead Stat 09/17/21 09:25 Complete Blood Count AUTO DIFF Stat Comprehensive Metabolic Panel Stat Lipase Stat NT-proBNP (BNP-Adult 18+) Stat Troponin & CK Cardiac Panel Stat 09/17/21 11:15 Troponin I Stat Discontinued Medications Sodium Chloride (Normal Saline 0.9%) 500 mls @ 1,000 mls/hr IV BOLUS ONE Stop: 09/17/21 10:04 Last Infusion: 09/17/21 10:19 Dose: 0 mls/hr Documented by: Admin: 09/17/21 09:42 Dose: 1,000 mls/hr Documented by: CLIFF Vital Signs Vital signs: Vital Signs - 8 hr 09/17/21 09:00 09/17/21 09:01 09/17/21 09:02 Temperature 97.8 F Pulse Rate 69 65 66 Pulse Rate [Orthostatic Lying] Pulse Rate [Orthostatic Sitting] Pulse Rate [Orthostatic Standing] Respiratory Rate 18 Blood Pressure 150/80 H 154/78 H Blood Pressure [Orthostatic Lying] Blood Pressure [Orthostatic Sitting] Blood Pressure [Orthostatic Standing] Pulse Oximetry 99 99 100 09/17/21 09:14 09/17/21 09:26 09/17/21 09:27 Temperature Pulse Rate 69 64 70 Pulse Rate [Orthostatic Lying] Pulse Rate [Orthostatic Sitting] Pulse Rate [Orthostatic Standing] Respiratory Rate 13 18 13 Blood Pressure 148/82 H 136/71 127/77 Blood Pressure [Orthostatic Lying] Blood Pressure [Orthostatic Sitting] Blood Pressure [Orthostatic Standing] Pulse Oximetry 97 96 94 09/17/21 09:29 09/17/21 09:31 09/17/21 09:46 Temperature Pulse Rate 81 72 Pulse Rate [Orthostatic Lying] 64 Pulse Rate [Orthostatic Sitting] 70 Pulse Rate [Orthostatic Standing] 99 H Respiratory Rate 18 19 Blood Pressure 114/63 Blood Pressure [Orthostatic Lying] 139/71 Blood Pressure [Orthostatic Sitting] 127/71 Blood Pressure [Orthostatic Standing] 114/63 Pulse Oximetry 95 94 09/17/21 09:48 09/17/21 10:00 09/17/21 10:30 Temperature Pulse Rate 72 63 60 Pulse Rate [Orthostatic Lying] Pulse Rate [Orthostatic Sitting] Pulse Rate [Orthostatic Standing] Respiratory Rate 12 15 13 Blood Pressure 154/76 H 139/71 133/71 Blood Pressure [Orthostatic Lying] Blood Pressure [Orthostatic Sitting] Blood Pressure [Orthostatic Standing] Pulse Oximetry 97 96 96 09/17/21 11:00 09/17/21 11:30 09/17/21 11:32 Temperature Pulse Rate 63 65 66 Pulse Rate [Orthostatic Lying] Pulse Rate [Orthostatic Sitting] Pulse Rate [Orthostatic Standing] Respiratory Rate 16 17 19 Blood Pressure 134/69 98/56 L Blood Pressure [Orthostatic Lying] Blood Pressure [Orthostatic Sitting] Blood Pressure [Orthostatic Standing] Pulse Oximetry 97 95 09/17/21 11:33 09/17/21 11:34 09/17/21 11:41 Temperature Pulse Rate 75 74 Pulse Rate [Orthostatic Lying] Pulse Rate [Orthostatic Sitting] Pulse Rate [Orthostatic Standing] Respiratory Rate 16 Blood Pressure 106/61 113/64 123/74 Blood Pressure [Orthostatic Lying] Blood Pressure [Orthostatic Sitting] Blood Pressure [Orthostatic Standing] Pulse Oximetry 97 09/17/21 12:00 09/17/21 12:01 09/17/21 12:30 Temperature Pulse Rate 62 64 63 Pulse Rate [Orthostatic Lying] Pulse Rate [Orthostatic Sitting] Pulse Rate [Orthostatic Standing] Respiratory Rate 16 14 13 Blood Pressure 143/77 H 146/82 H Blood Pressure [Orthostatic Lying] Blood Pressure [Orthostatic Sitting] Blood Pressure [Orthostatic Standing] Pulse Oximetry 96 96 97 MDM - Recheck/Abnormal Lab/Rx Lab Data Result diagrams: 09/17/21 09:25 09/17/21 09:25 Labs: Lab Results 09/17/21 09/17/21 09/17/21 Range/Units 09:25 09:25 11:15 WBC 5.8 (4.5-11.0) X10^3/uL RBC 3.32 L (4.5-5.9) X10^6/uL Hgb 11.8 L (13.5-17.5) g/dL Hct 33.5 L (41-53) % MCV 100.8 H (80-100) fL MCH 35.7 H (26-34) PG MCHC 35.4 (30-36) % RDW 16.1 H (11.6-14.8) % Plt Count 170 (150-400) X10^3/uL Neut % (Auto) 82.1 H (50-75) % Lymph % (Auto) 6.9 L (25-40) % [place] % (Auto) 8.1 (3-14) % Eos % (Auto) 2.4 (2-4) % Baso % (Auto) 0.5 (0-2) % Neut # (Auto) 4700 (2799-4111) /uL Lymph # (Auto) 400 L (4850-0946) /uL [place] # (Auto) 500 (0-900) /uL Eos # (Auto) 100 (0-450) /uL Baso # (Auto) 0 (0-100) /uL Sodium 140 (137-145) mmol/L Potassium 3.5 (3.4-5.1) mmol/L Chloride 104 (98-107) mmol/L Carbon Dioxide 33 H (22-32) mmol/L BUN 21 H (9-20) mg/dL Creatinine 1.13 (0.66-1.25) mg/dL Estimated GFR > 60.0 (>60) mL/min BUN/Creatinine Ratio 18.6 (6-22) Glucose 98 (80-110) mg/dL Calcium 9.7 (8.4-10.2) mg/dL Total Bilirubin 0.6 (0.2-1.3) mg/dL AST 22 (17-59) IU/L ALT 16 (<50) IU/L Alkaline Phosphatase 77 (38-126) U/L Total Creatine Kinase 59 (55-170) U/L CK-MB (CK-2) TNP CK-MB (CK-2) Rel Index TNP Troponin I 0.034 0.028 (0.01-0.034) ng/mL NT-Pro-B Natriuret Pep 4250 H (<125) pg/mL Total Protein 7.3 (6.3-8.2) g/dL Albumin 4.0 (3.5-5.0) g/dL Globulin 3.3 (1.7-4.1) g/dL Albumin/Globulin Ratio 1.2 (1.0-2.8) Lipase 40 (23-300) U/L ECG Data Attestation: I personally reviewed and interpreted this ECG as follows: Prior ECG tracings: available for review Interpretation: Ventricularly paced Rate is 67 Unchanged from EKG dated 05/15/2021 MDM Narrative Medical decision making narrative: Patient did receive fluids because he was positive with his orthostatic blood pressures. His systolic blood pressures maintained in the 140s while being here in the emergency department. Troponins unremarkable. Patient ambulated to the bathroom. I do suspect that his issues could be because of low blood pressure. He was on 4 different classes of blood pressure medication and has lost approximately 30 lb over the past couple months. This weight loss is secondary to his chemotherapy and radiation. He recently stopped the amlodipine. Plan will be is to have him continue to take his carvedilol to times a day. 1 hour after taking this medication in the morning he will retake his blood pressure. If it is greater than 140 systolic he will take his morning hydrochlorothiazide. If it is less than 140 he will skip this medication. He will take his carvedilol again in the evening. He will retake his blood pressure 1 hour afterwards as if the systolic is greater than 140 he will take his night dose of lisinopril. He will skip it if the blood pressures less than 140. Will have him contact his offset printing pressmen for follow-up. I did encourage oral intake of fluids. He was given return precautions. He expressed understanding and agreement. Discharge Plan Departure Patient Disposition: Home Clinical Impression: Dehydration Activity Restrictions/Additional Instructions: I do recommend that you continue to take your potassium supplementation as previously directed. I recommend that you continue to take your carvedilol/Coreg 2 times a day as directed. Take your blood pressure afterwards like we discussed and if needed take the hydrochlorothiazide in the morning and the lisinopril in the evening. Keep all of her scheduled medical appointment. Return to the emergency department for any new or worsening symptoms. Prescriptions: No Action methenamine hippurate [Hiprex] 1 gram tablet 1 g PO BID Qty: 180 3RF carvedilol 25 mg Tablet 25 mg PO BID 0RF cetirizine 10 mg Tablet 10 mg PO DAILY PRN (Reason: Allergy Symptoms) 0RF lisinopril 20 mg Tablet 20 mg PO DAILY 0RF potassium chloride [K-Tab] 10 mEq Tablet Extended Release 20 meq PO DAILY 0RF allopurinol 100 mg Tablet 150 mg PO DAILY 0RF hydrochlorothiazide 25 mg Tablet 25 mg PO DAILY 0RF fluticasone propionate 50 mcg/actuation [place],Suspension 1 spray INTRANASAL DAILY PRN (Reason: Allergy Symptoms) 0RF amlodipine 10 mg tablet 10 mg PO DAILY 0RF Label Comments: TK 1 T PO D rosuvastatin 5 mg tablet 0RF amoxicillin 500 mg capsule 500 mg PO BID 0RF Referrals: Joel Solares MD [Primary Care Provider] -
[2021-09-17 09:38] LABS: Add Manual Diff / Slide Review NO; Basophils Absolute Auto 0 /uL (0-100); Basophils Percent Auto 0.5 % (0-2); Eosinophils Absolute Auto 100 /uL (0-450); Eosinophils Percent Auto 2.4 % (2-4); Hematocrit 33.5 % (41-53); Hemoglobin 11.8 g/dL (13.5-17.5); Lymphocytes Absolute Auto 400 /uL (1100-4500); Lymphocytes Percent Auto 6.9 % (25-40); Mean Corpuscular HGB Conc 35.4 % (30-36); Mean Corpuscular Hemoglobin 35.7 PG (26-34); Mean Corpuscular Volume 100.8 fL (80-100); Monocytes Absolute Auto 500 /uL (0-900); Monocytes Percent Auto 8.1 % (3-14); Neutrophils Absolute Auto 4700 /uL (1500-7000); Neutrophils Percent Auto 82.1 % (50-75); Platelet Count 170 X10^3/uL (150-400); Red Blood Cell Count 3.32 X10^6/uL (4.5-5.9); Red Cell Distribution Width 16.1 % (11.6-14.8); White Blood Cell Count 5.8 X10^3/uL (4.5-11.0)
[2021-09-17] MEDS: SODIUM CHLORIDE 0.9% 500 ML 1000 ML IV (09:42)
[2021-09-17 09:53] LABS: Alanine Aminotransferase 16 IU/L (<50); Albumin Globulin Ratio 1.2 (1.0-2.8); Alkaline Phosphatase 77 U/L (38-126); Aspartate Aminotransferase 22 IU/L (17-59); BUN Creatinine Ratio 18.6 (6-22); Bilirubin Total 0.6 mg/dL (0.2-1.3); Blood Urea Nitrogen 21 mg/dL (9-20); Calcium 9.7 mg/dL (8.4-10.2); Carbon Dioxide 33 mmol/L (22-32); Chloride 104 mmol/L (98-107); Creatine Kinase 59 U/L (55-170); Estimated Glomerular Filt Rate > 60.0 mL/min (>60); Globulin 3.3 g/dL (1.7-4.1); Glucose 98 mg/dL (80-110); HEMOLYSIS < 15 (0-50); Lipase 40 U/L (23-300); Potassium 3.5 mmol/L (3.4-5.1); Sodium 140 mmol/L (137-145); Total Protein 7.3 g/dL (6.3-8.2)
[2021-09-17 10:04] LABS: NT-proBNP (BNP-Adult 18+) 4250 pg/mL (<125); Troponin I 0.034 ng/mL (0.01-0.034)
[2021-09-17 11:51] LABS: Troponin I 0.028 ng/mL (0.01-0.034)
== END 2021-09-17 12:54 | disposition home or self-care (01) ==
PROVIDERS: Emergency Provider Emergency Medicine; PCP Internal Medicine
DX: E86.0 Dehydration (principal); I10 Essential (primary) hypertension
CPT/HCPCS: 36415; 80053; 82550; 83690; 83880; 84484; 85025; 93005; 93010; 96360; 99284

== ENCOUNTER → 2021-10-20 15:20 | Outpatient (CLI) | payer OTHER, SELFPAY ==
--- NOTE | 2021-10-20 | DI.ECHO.S_ITS ---
[facility] +---------+ : : [address] : [address] : : : : [id number] : : : : Phone: [phone] Echocardiogram Report + + :Name: MALINDA AMARAL Study Date: 10/20/2021 Height: 75 in : :[facility] ReadingLocation: Weight: 215 lb : : Gender: Male BSA: 2.3 m2 : :: 1950 Age: 71 yrs BP: 142/79 mmHg: :Reason For Study: CARDIOMYOPATHY : :Ordering Physician: NISHA, : :RIKKI Performed By: Kristie Winston : :Referring: RIKKI DEJESUS : + + Interpretation Summary 1) Mildly to moderately enlarged left ventricle with moderately to severelyt reduced systolic function (EF 30-35%). 2) Apical wall motion abnormality may reflect pacemaker activation or ischemia. Moderate global hypokinesis in other LV montemayor. 3) Borderline enlarged right ventricle with mildly reduced function. Pacemaker lead visualized in the RV. 4) There is mild to moderate aortic regurgitation. 5) There is moderate mitral regurgitation. 6) The ascending aorta is mildly enlarged at 4.1cm 7) A patent foramen ovale is suspected. 8) Compared to the Echo done 04/24/2021, LVEF has decreased from 40-45% to 30- 35% on this study. Procedure: A two-dimensional transthoracic echocardiogram with color flow and Doppler was performed. The study quality was technically adequate. Comparison is made with the echocardiogram of 04/24/2021. The patient has a paced rhythm. The heart rate ranged between 72-78 bpm during the study. Left Ventricle: The left ventricle is mild-moderately dilated. The estimated left ventricular end diastolic volume is 217 ml. There is mild concentric left ventricular hypertrophy. Left ventricular ejection fraction is estimated to be 30 +/- 5%. Right Ventricle: There is a pacemaker lead in the right ventricle. The right ventricle is borderline dilated. Right ventricular systolic function is mildly reduced. Atria: The left atrium is mildly dilated. There is a catheter/pacemaker lead seen in the right atrium. Right atrial size is normal. A patent foramen ovale is suspected. Mitral Valve: The mitral valve is normal in structure and function. There is mild mitral annular calcification. There is moderate mitral regurgitation. Aortic Valve: The aortic valve is trileaflet. The aortic valve opens well. There is no aortic valve stenosis. There is mild to moderate aortic regurgitation. Tricuspid Valve: The tricuspid valve is normal in structure and function. There is mild to moderate tricuspid regurgitation. The right ventricular systolic pressure is estimated to be at least 40 mmHg based on an estimated right atrial pressure of 3 mm Hg. Pulmonic Valve: The pulmonic valve is not well seen, but is grossly normal. There is trace pulmonic regurgitation. Great Vessels: The aortic root is borderline dilated. The ascending aorta is mildly enlarged. The IVC is of normal diameter and collapses greater than 50% with a sniff. This suggests a low right atrial pressure of 3 mm Hg. Pericardium/ Pleura There is a trace pericardial effusion that is circumferential. There is no pleural effusion. MMode/2D Measurements & Calculations LVIDd: 6.8 cm LVOT diam: 2.3 cm LVIDs: 5.5 cm Ao root diam: 4.0 cm FS: 19.5 % asc Aorta Diam: 4.1 cm IVSd: 1.3 cm Ao Arch Diam (Prox Trans): 3.4 cm LVPWd: 1.3 cm LV hua. diameter/BSA (cm/m^2): 3.0 LV sys. diameter/BSA (cm/m^2): 2.4 LA A2 area: 23.9 cm2 RA long axis: 5.2 cm LA A4 area: 24.0 cm2 RA area: 17.9 cm2 LA length (vol): 5.8 cm RA vol: 52.0 ml LA vol: 83.4 ml RA : 23.0 ml/m2 LA vol index: 36.9 ml/m2 IVC diam: 2.0 cm RVD1 (basal): 4.0 cm RVD2 (mid): 3.6 cm TAPSE: 1.8 cm Doppler Measurements & Calculations Ao V2 max: 107.5 cm/sec LVOT Max Alok: 71.4 cm/sec Ao V2 mean: 73.6 cm/sec LV V1 max P.0 mmHg Ao max P.6 mmHg LV V1 VTI: 14.0 cm Ao mean P.5 mmHg BRODERICK(I,D): 3.0 cm2 Ao V2 VTI: 18.5 cm BRODERICK(V,D): 2.6 cm2 sev ratio: 0.76 BRODERICK indexed to BSA (cm^2/m^2): 1.3 AI P1/2t: 435.4 msec AI dec slope: 273.0 cm/sec2 MV E max alok: 96.6 cm/sec TR max alok: 304.6 cm/sec MV A max alok: 80.5 cm/sec TR max P.1 mmHg MV E/A: 1.2 PA V2 max: 83.2 cm/sec Med Peak E' Alok: 5.6 cm/sec PA V2 mean: 61.1 cm/sec E/E' med: 17.3 PA mean P.6 mmHg Lat Peak E' Alok: 6.4 cm/sec PA pr(Accel): 31.0 mmHg E/E' lat: 15.0 E/e' average: 16.2 MV dec time: 0.18 sec MR ERO: 0.12 cm2 MR PISA: 2.1 cm2 SV(LVOT): 55.6 ml MR flow rate: 76.6 cm3/sec MR PISA radius: 0.58 cm Reading Physician:09:32 AM
== END ==
PROVIDERS: PCP Internal Medicine; Referring Provider Internal Medicine Cardiovascular Disease; Visit Provider Internal Medicine Cardiovascular Disease
DX: I42.8 Other cardiomyopathies (principal); R06.00 Dyspnea, unspecified; I51.7 Cardiomegaly; I35.1 Nonrheumatic aortic (valve) insufficiency; I34.0 Nonrheumatic mitral (valve) insufficiency
CPT/HCPCS: 93306

== ENCOUNTER 2021-12-15 11:09 | Observation (INO) | payer OTHER, SELFPAY ==
[2021-12-15] VITALS (25 sets, daily range): BP systolic 147–183; BP diastolic 66–94; PULSE 90–111; RESP 12–28; TEMP 36.9–37.6; O2SAT 93–97; BMI 21.8
--- NOTE | 2021-12-15 11:37 | DI.RAD.S_ITS ---
PROCEDURE: XR CHEST 1V INDICATIONS: suspected sepsis TECHNIQUE: One view of the chest was acquired. COMPARISON: [facility], CR, XR CHEST 1V, 03/29/2020, 7:59. FINDINGS: Surgical changes and devices: Left-sided pacer. Left internal jugular vein port catheter, which demonstrates an incompletely visualized loop in the left inferior neck. Lungs and pleura: Lungs are clear. No pleural effusions or pneumothorax. Mediastinum: Mediastinal contours appear normal. Heart size is normal. Bones and chest wall: No suspicious bony lesions. Overlying soft tissues appear unremarkable. IMPRESSION: 1. No acute process. 2. Left chest wall port a catheter as above. Dictated by: Keira Dillon M.D. on 12/15/2021 at 11:59 Approved by: Keira Dillon M.D. on 12/15/2021 at 12:00
[2021-12-15] MEDS: SODIUM CHLORIDE 0.9% 1,000 ML 1000 ML IV (12:00)
[2021-12-15] MEDS: METOCLOPRAMIDE 10 MG/2 ML INJ IV (12:00)
[2021-12-15 12:04] LABS: Add Manual Diff / Slide Review NO; Basophils Absolute Auto 0 /uL (0-100); Basophils Percent Auto 0.2 % (0-2); Eosinophils Absolute Auto 0 /uL (0-450); Hematocrit 34.6 % (41-53); Hemoglobin 11.9 g/dL (13.5-17.5); Lymphocytes Absolute Auto 300 /uL (1100-4500); Lymphocytes Percent Auto 2.5 % (25-40); Mean Corpuscular HGB Conc 34.2 % (30-36); Mean Corpuscular Hemoglobin 31.7 PG (26-34); Mean Corpuscular Volume 92.4 fL (80-100); Monocytes Absolute Auto 600 /uL (0-900); Monocytes Percent Auto 5.3 % (3-14); Neutrophils Absolute Auto 10800 /uL (1500-7000); Platelet Count 226 X10^3/uL (150-400); Red Blood Cell Count 3.75 X10^6/uL (4.5-5.9); Red Cell Distribution Width 17.1 % (11.6-14.8); White Blood Cell Count 11.7 X10^3/uL (4.5-11.0)
[2021-12-15 12:11] LABS: INR 1.7 (0.9-1.3); Prothrombin Time 19.1 SECONDS (10.1-12.7)
[2021-12-15 12:14] LABS: PTT Partial Thromboplastin Tim 34 SECONDS (26.4-36.2)
[2021-12-15 12:16] LABS: Alanine Aminotransferase 16 IU/L (<50); Albumin 4.4 g/dL (3.5-5.0); Alkaline Phosphatase 93 U/L (38-126); Aspartate Aminotransferase 25 IU/L (17-59); BUN Creatinine Ratio 33.9 (6-22); Bilirubin Total 0.8 mg/dL (0.2-1.3); Blood Urea Nitrogen 43 mg/dL (9-20); Calcium 10.1 mg/dL (8.4-10.2); Carbon Dioxide 33 mmol/L (22-32); Chloride 98 mmol/L (98-107); Estimated Glomerular Filt Rate 55.9 mL/min (>60); Globulin 4.2 g/dL (1.7-4.1); Glucose 166 mg/dL (80-110); HEMOLYSIS < 15 (0-50); Lactate (Lactic Acid) 1.5 mmol/L (0.7-2.1); Lipase 30 U/L (23-300); Potassium 3.3 mmol/L (3.4-5.1); Sodium 140 mmol/L (137-145); Total Protein 8.6 g/dL (6.3-8.2)
[2021-12-15 12:33] LABS: Procalcitonin 0.17 ng/mL (<0.5)
--- NOTE | 2021-12-15 12:36 | ED_ITS ---
HPI - Nausea/Vomiting/Diarrhea General Chief complaint: Nausea/Vomiting/Diarrhea Stated complaint: Nausea/vomiting x2days. 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 He also has a history of atrial fibrillation on Eliquis congestive heart failure with pacemaker is presenting today with nausea and vomiting. He received his 2nd treatment of immunotherapy last week he has been throwing the last couple of days. At home he has taken at least 20 mg of Zofran without any relief. He he was constipated but took an [id number] laxative and now is feeling better. He had a bowel movement. He denies any fever or chills. He has no chest pain or shortness of breath. Just can not keep anything down. Related Data Home Medications Medication Instructions Recorded Confirmed allopurinol 100 mg tablet 150 mg PO DAILY 10/18/18 12/15/21 carvedilol 25 mg tablet 25 mg PO BID 10/18/18 12/15/21 cetirizine 10 mg tablet 10 mg PO DAILY PRN 10/18/18 12/15/21 fluticasone propionate 50 1 spray INTRANASAL DAILY PRN 10/18/18 12/15/21 mcg/actuation nasal spray,suspension hydrochlorothiazide 25 mg tablet 25 mg PO DAILY 10/18/18 12/15/21 lisinopril 20 mg tablet 5 mg PO DAILY 10/18/18 12/15/21 potassium chloride 10 mEq 10 meq PO BID 10/18/18 12/15/21 tablet,extended release (K-Tab) rosuvastatin 5 mg tablet 5 mg PO BEDTIME 06/13/19 12/15/21 apixaban 5 mg tablet (Eliquis) 10 mg PO DAILY 12/15/21 12/15/21 ascorbic acid (vitamin C) 500 mg 500 mg PO BID 12/15/21 12/15/21 capsule cranberry 500 mg capsule 500 mg PO BID 12/15/21 12/15/21 d-mannose 500 mg capsule 500 mg PO BID 12/15/21 12/15/21 insulin glargine 100 unit/mL 30 unit SUBCUT BEDTIME 12/15/21 12/15/21 subcutaneous solution (Lantus U-100 Insulin) oxycodone 5 mg capsule 5 mg PO Q6HR PRN 12/15/21 12/15/21 Previous Rx's Medication Instructions Recorded methenamine hippurate 1 gram 1 g PO BID #180 tab 04/04/21 tablet (Hiprex) Allergies Allergy/AdvReac Type Severity Reaction Status Date / Time fluorouracil Allergy Verified 08/25/21 17:22 caffeine AdvReac sensitivity Verified 08/25/21 17:22 Review of Systems Review of Systems Narrative: GENERAL: Denies chills, fatigue, malaise, fever, sweats, travel HEENT: Denies sinus pain, ear pain, sore throat, difficulty swallowing, neck pain RESPIRATORY: Denies dyspnea, cough, wheezing, hemoptysis, sputum. CARDIOVASCULAR: Denies chest pain, palpitations, orthopnea, edema GASTROINTESTINAL: See HP : Denies dysuria, frequency, incontinence, hematuria, urinary retention, flank pain. MUSCULOSKELETAL: Denies weakness, joint pain, or bony pain SKIN: No rash, no erythema, no pruritus NEUROLOGIC: Denies weakness, dizziness, headache, numbness, change in speech, confusion PSYCHIATRIC: No concerning psychosocial issues. 12 point review of systems is negative except for those stated above and HPI Patient History Medical History Celiac disease Congestive heart failure Diabetes Encounter for insertion of cardiac resynchronization therapy pacemaker Gout History of recurrent UTI (urinary tract infection) Hypertension Intermittent self-catheterization of bladder Kidney stones Neurogenic bladder Neurogenic bladder, flaccid Pacemaker Rectal cancer Urinary calculi Urinary retention Urinary retention UTI (urinary tract infection) Surgical History H/O colectomy Social History household members: spouse lives independently: Yes Smoking Status: Never smoker alcohol intake: current Smoking Status: Never smoker alcohol intake frequency: holidays/special occasions only Substance Use Type: marijuana Exam Initial Vital Signs Initial Vital Signs: Vital Signs Temperature 98.5 F 12/15/21 11:20 Pulse Rate 91 H 12/15/21 11:20 Respiratory Rate 12 12/15/21 11:20 Blood Pressure 176/91 H 12/15/21 11:20 Pulse Oximetry 96 12/15/21 11:20 GENERAL: Chronically ill 71-year-old male HEENT: Head atraumatic,EOMI, pupils reactive, face symmetric, dry mucous membranes CARDIOVASCULAR: Regular rate and rhythm without murmurs, rubs or gallops. RESPIRATORY: Breath sounds equal bilaterally, no wheezes rales or rhonchi. ABDOMEN: Soft, nontender. Normoactive bowel sounds all 4 quadrants. No guarding or rebound. : No CVA tenderness EXTREMITIES: Normal range of motion, no clubbing or edema. Neurovascularly intact NEUROLOGICAL: Alert and oriented x4.Normal gait and speech. Cranial nerves II through XII grossly intact. SKIN: Warm, dry, no laceration, no petechiae, no rashes or lesions. Course Orders Ordered: ED Orders 12/15/21 11:37 XR chest 1V Stat 12/15/21 11:40 EKG-12 Lead Stat 12/15/21 11:55 BNP [NT-proBNP (BNP-Adult 18+)] Stat Complete Blood Count AUTO DIFF Stat Comprehensive Metabolic Panel Stat Lactate (Lactic Acid) Stat Lipase Stat Partial Thromboplastin Time Stat Procalcitonin Stat Prothrombin Time INR Stat Troponin & CK Cardiac Panel Stat 12/15/21 14:05 Blood Culture Stat Trop I [Troponin I] Stat 12/15/21 14:06 COVID19 -Nasal swab/Pre-Proc Stat Acetaminophen (Acetaminophen 325 Mg Tablet) 650 mg PO Q6HR PRN PRN Reason: pain Sodium Chloride (Normal Saline 0.9%) 1,000 mls @ 125 mls/hr IV CONT PATO Last Admin: 12/15/21 18:50 Dose: 125 mls/hr Documented by: CLARKE Ondansetron HCl (Ondansetron 4 Mg/2 Ml Inj) 4 mg IV Q8HR PRN PRN Reason: Nausea And Vomiting Discontinued Medications Sodium Chloride (Normal Saline 0.9%) 1,000 mls @ 1,000 mls/hr IV BOLUS ONE Stop: 12/15/21 12:34 Last Infusion: 12/15/21 13:15 Dose: 0 mls/hr Documented by: Admin: 12/15/21 12:00 Dose: 1,000 mls/hr Documented by: JOSE Metoclopramide HCl (Metoclopramide 10 Mg/2 Ml Inj) 10 mg IV NOW ONE Stop: 12/15/21 11:38 Last Admin: 12/15/21 12:00 Dose: 10 mg Documented by: JOSE Vital Signs Vital signs: Vital Signs - 8 hr 12/15/21 11:20 12/15/21 11:29 12/15/21 11:30 Temperature 98.5 F Pulse Rate 91 H 96 H Respiratory Rate 12 Blood Pressure 176/91 H 176/91 H Pulse Oximetry 96 97 96 12/15/21 12:00 12/15/21 12:15 12/15/21 12:30 Temperature Pulse Rate 100 H 95 H 90 Respiratory Rate 20 Blood Pressure 157/84 H 147/66 H Pulse Oximetry 95 95 95 12/15/21 12:46 12/15/21 13:00 12/15/21 13:15 Temperature Pulse Rate 92 H 97 H 100 H Respiratory Rate Blood Pressure 157/73 H Pulse Oximetry 96 96 93 12/15/21 13:30 12/15/21 13:45 12/15/21 14:00 Temperature Pulse Rate 99 H 97 H 96 H Respiratory Rate 23 21 Blood Pressure 156/74 H 157/72 H Pulse Oximetry 93 94 95 12/15/21 14:15 12/15/21 14:30 12/15/21 14:45 Temperature Pulse Rate 94 H 94 H 97 H Respiratory Rate 17 23 18 Blood Pressure 167/83 H Pulse Oximetry 94 93 94 12/15/21 15:00 12/15/21 15:15 12/15/21 15:30 Temperature Pulse Rate 95 H 96 H 111 H Respiratory Rate 17 20 28 H Blood Pressure 165/92 H 160/81 H Pulse Oximetry 93 94 96 12/15/21 15:49 12/15/21 16:00 Temperature Pulse Rate 110 H 101 H Respiratory Rate 17 Blood Pressure 173/81 H 168/85 H Pulse Oximetry 97 96 MDM - Nausea/Vomiting/Diarrhea Lab Data Result diagrams: 12/15/21 11:55 12/15/21 11:55 Labs: Lab Results 12/15/21 12/15/21 12/15/21 Range/Units 11:55 11:55 11:55 WBC 11.7 H (4.5-11.0) X10^3/uL RBC 3.75 L (4.5-5.9) X10^6/uL Hgb 11.9 L (13.5-17.5) g/dL Hct 34.6 L (41-53) % MCV 92.4 (80-100) fL MCH 31.7 (26-34) PG MCHC 34.2 (30-36) % RDW 17.1 H (11.6-14.8) % Plt Count 226 (150-400) X10^3/uL Neut % (Auto) 92.0 H (50-75) % Lymph % (Auto) 2.5 L (25-40) % [place] % (Auto) 5.3 (3-14) % Eos % (Auto) 0.0 L (2-4) % Baso % (Auto) 0.2 (0-2) % Neut # (Auto) 09896 H (8478-9312) /uL Lymph # (Auto) 300 L (3813-5734) /uL [place] # (Auto) 600 (0-900) /uL Eos # (Auto) 0 (0-450) /uL Baso # (Auto) 0 (0-100) /uL PT 19.1 H (10.1-12.7) SECONDS INR 1.7 H (0.9-1.3) APTT 34 D (26.4-36.2) SECONDS Sodium 140 (137-145) mmol/L Potassium 3.3 L (3.4-5.1) mmol/L Chloride 98 (98-107) mmol/L Carbon Dioxide 33 H (22-32) mmol/L BUN 43 H (9-20) mg/dL Creatinine 1.27 H (0.66-1.25) mg/dL Estimated GFR 55.9 L (>60) mL/min BUN/Creatinine Ratio 33.9 H (6-22) Glucose 166 H (80-110) mg/dL Lactate (0.7-2.1) mmol/L Calcium 10.1 (8.4-10.2) mg/dL Total Bilirubin 0.8 (0.2-1.3) mg/dL AST 25 (17-59) IU/L ALT 16 (<50) IU/L Alkaline Phosphatase 93 (38-126) U/L Total Creatine Kinase (55-170) U/L CK-MB (CK-2) CK-MB (CK-2) Rel Index Troponin I (0.01-0.034) ng/mL NT-Pro-B Natriuret Pep (<125) pg/mL Total Protein 8.6 H (6.3-8.2) g/dL Albumin 4.4 (3.5-5.0) g/dL Globulin 4.2 H (1.7-4.1) g/dL Albumin/Globulin Ratio 1.0 (1.0-2.8) Lipase 30 (23-300) U/L Procalcitonin 0.17 (<0.5) ng/mL SARS-CoV-2 (PCR) (Negative) 12/15/21 12/15/21 12/15/21 Range/Units 11:55 11:55 14:05 WBC (4.5-11.0) X10^3/uL RBC (4.5-5.9) X10^6/uL Hgb (13.5-17.5) g/dL Hct (41-53) % MCV (80-100) fL MCH (26-34) PG MCHC (30-36) % RDW (11.6-14.8) % Plt Count (150-400) X10^3/uL Neut % (Auto) (50-75) % Lymph % (Auto) (25-40) % [place] % (Auto) (3-14) % Eos % (Auto) (2-4) % Baso % (Auto) (0-2) % Neut # (Auto) (3236-9894) /uL Lymph # (Auto) (1032-5276) /uL [place] # (Auto) (0-900) /uL Eos # (Auto) (0-450) /uL Baso # (Auto) (0-100) /uL PT (10.1-12.7) SECONDS INR (0.9-1.3) APTT (26.4-36.2) SECONDS Sodium (137-145) mmol/L Potassium (3.4-5.1) mmol/L Chloride (98-107) mmol/L Carbon Dioxide (22-32) mmol/L BUN (9-20) mg/dL Creatinine (0.66-1.25) mg/dL Estimated GFR (>60) mL/min BUN/Creatinine Ratio (6-22) Glucose (80-110) mg/dL Lactate 1.5 (0.7-2.1) mmol/L Calcium (8.4-10.2) mg/dL Total Bilirubin (0.2-1.3) mg/dL AST (17-59) IU/L ALT (<50) IU/L Alkaline Phosphatase (38-126) U/L Total Creatine Kinase 69 (55-170) U/L CK-MB (CK-2) TNP CK-MB (CK-2) Rel Index TNP Troponin I 0.176 H* 0.176 H* (0.01-0.034) ng/mL NT-Pro-B Natriuret Pep 99639 H (<125) pg/mL Total Protein (6.3-8.2) g/dL Albumin (3.5-5.0) g/dL Globulin (1.7-4.1) g/dL Albumin/Globulin Ratio (1.0-2.8) Lipase (23-300) U/L Procalcitonin (<0.5) ng/mL SARS-CoV-2 (PCR) (Negative) 12/15/21 Range/Units 14:06 WBC (4.5-11.0) X10^3/uL RBC (4.5-5.9) X10^6/uL Hgb (13.5-17.5) g/dL Hct (41-53) % MCV (80-100) fL MCH (26-34) PG MCHC (30-36) % RDW (11.6-14.8) % Plt Count (150-400) X10^3/uL Neut % (Auto) (50-75) % Lymph % (Auto) (25-40) % [place] % (Auto) (3-14) % Eos % (Auto) (2-4) % Baso % (Auto) (0-2) % Neut # (Auto) (6206-4966) /uL Lymph # (Auto) (0129-6406) /uL [place] # (Auto) (0-900) /uL Eos # (Auto) (0-450) /uL Baso # (Auto) (0-100) /uL PT (10.1-12.7) SECONDS INR (0.9-1.3) APTT (26.4-36.2) SECONDS Sodium (137-145) mmol/L Potassium (3.4-5.1) mmol/L Chloride (98-107) mmol/L Carbon Dioxide (22-32) mmol/L BUN (9-20) mg/dL Creatinine (0.66-1.25) mg/dL Estimated GFR (>60) mL/min BUN/Creatinine Ratio (6-22) Glucose (80-110) mg/dL Lactate (0.7-2.1) mmol/L Calcium (8.4-10.2) mg/dL Total Bilirubin (0.2-1.3) mg/dL AST (17-59) IU/L ALT (<50) IU/L Alkaline Phosphatase (38-126) U/L Total Creatine Kinase (55-170) U/L CK-MB (CK-2) CK-MB (CK-2) Rel Index Troponin I (0.01-0.034) ng/mL NT-Pro-B Natriuret Pep (<125) pg/mL Total Protein (6.3-8.2) g/dL Albumin (3.5-5.0) g/dL Globulin (1.7-4.1) g/dL Albumin/Globulin Ratio (1.0-2.8) Lipase (23-300) U/L Procalcitonin (<0.5) ng/mL SARS-CoV-2 (PCR) Negative (Negative) Imaging Data Chest x-ray: Radiologist's Impression: PROCEDURE:? XR CHEST 1V ? INDICATIONS:? suspected sepsis ? TECHNIQUE:? One view of the chest was acquired.? ? COMPARISON:? [facility], CR, XR CHEST 1V, 03/29/2020, 7:59. ? FINDINGS:? ? Surgical changes and devices:? Left-sided pacer.? Left internal jugular vein port catheter, which demonstrates an incompletely visualized loop in the left inferior neck. ? Lungs and pleura:? Lungs are clear.? No pleural effusions or pneumothorax.? ? Mediastinum:? Mediastinal contours appear normal.? Heart size is normal.? ? Bones and chest wall:? No suspicious bony lesions.? Overlying soft tissues appear unremarkable.? ? IMPRESSION:? 1. No acute process. 2. Left chest wall port a catheter as above.? ? ? Dictated by: Keira Dillon M.D. on 12/15/2021 at 11:59 ? ECG Data Interpretation: Paced rhythm rate 89 similar to previous EKG in 2020 MDM Narrative Medical decision making narrative: Patient has a history of nausea vomiting ongoing for last couple of days. Overall he has dry mucous membranes and appears dry. He does have significantly elevated BNP and troponin is positive but on changing. Cardiology has been consulted in regards to positive troponin at this time he thinks it is unrelated to his current problem. Recommend rechecking troponin in the morning and treating his issue of dehydration. Also recommend holding his hydrochlorothiazide and potassium. Patient so far has tolerated 500 cc of normal saline as he has no shortness of breath. He did have an episode of diarrhea in the ED and requested a shower which he was granted. He is not neutropenic he does not appear septic. At this time no need for antibiotics. Discharge Plan Departure Patient Disposition: Admitted As Inpatient Clinical Impression: Chemotherapy induced nausea and vomiting Admit Date/Time: 12/15/21 16:08 Admit Provider: Chip Servin
[2021-12-15 13:10] LABS: Creatine Kinase 69 U/L (55-170)
[2021-12-15 13:26] LABS: Troponin I 0.176 ng/mL (0.01-0.034)
[2021-12-15 13:39] LABS: NT-proBNP (BNP-Adult 18+) 33100 pg/mL (<125)
[2021-12-15 14:36] LABS: Troponin I 0.176 ng/mL (0.01-0.034)
[2021-12-15 14:57] LABS: COVID19 -Nasal RAPID Negative (Negative)
--- NOTE | 2021-12-15 15:41 | PC.NURSE ---
Pt incontinent of stool and is requesting to shower. Dr. Encarnacion cleared. Pt's assisting him in shower, aware of emergency call wilkins and will call if any problems.
--- NOTE | 2021-12-15 18:15 | PC.NURSE ---
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 The right side of his neck has a hard lump, he states that he got this from skin cancer to the top of his head and it spread to his glands bilaterally. Patient has a lesion on the top of his head that is active skin cancer, and to the side of his head and ear. Patient is getting immuno therapy for the tumors. They did do surgery on one side but were unable to get all of it as area is around many nerves, per patients words. He has been having some nausea and hiccups. Will give patient some nausea medication if needed. He has been incontinent of some stool, Troponin levels up and bnp, please see lab results. patient has been having nausea and has lost 50 pounds recently. He has a left port chest that is accessed and will be on ivf of ns. He has been admitted and his medication list is done. Patient is also on tele.
[2021-12-15] MEDS: SODIUM CHLORIDE 0.9% 1,000 ML 125 ML IV (18:50)
[2021-12-15] MEDS: ONDANSETRON 8 MG in SODIUM CHLORIDE 0.9% 50 ML 216 ML IV (20:24)
[2021-12-15] MEDS: carvediloL 12.5 MG TABLET 25 MG PO (21:02)
[2021-12-15] MEDS: ATORVASTATIN 20 MG TABLET 10 MG PO (21:03)
[2021-12-15] MEDS: MELATONIN 3 MG TABLET 6 MG PO (21:30)
--- NOTE | 2021-12-15 21:30 | P.HP_ITS ---
History of Present Illness History of Present Illness Date Patient Seen: 12/15/21 Time Patient Seen: 21:00 Chief complaint: Nausea/vomiting x2days. dehydrated Narrative: Clifford Narayan is a 71-year-old gentleman currently being undergoing immunotherapy for parotid cancer, diabetes, pacemaker, hypertension, hyperlipidemia, history of a PE on apixaban, celiac disease and a history of rectal cancer presented for intractable nausea and vomiting. He has been going to [facility] and received the second infusion on December 10. Since then, he has had persistent nausea and vomiting as well as hiccups. Per the ED provider, he has cumulatively taken up to 20 mgs of oral zofran with no effect. He also informed the ED provider, he became constipated that was resolved wit an over the counter laxative. He denies fever, sweats or chills, shortness of breath, chest pain, dysurea, but has chronic urinary retention and self catheterizes, and his constipation is now resolved. He denies swelling of his lower extremities and his exam reflects that. Patient underwent echocardiogram study on October 20 of this year and has moderate to severe reduced systolic function with an EF of 30-35%, apical wall motion abnormality reflecting pacemaker at [employer] a stone or ischemia, borderline enlarged right ventricle with mildly reduced function mildly enlarged ascending aorta at 4.1 cm, suspected patent foramen ovale, and a reduction in his EF from an echo done in April of 2021 from 40-45% to 30-35%. Chest x-ray ordered in the ED today did not identify any acute process but noted a Port-A-Cath in the left chest wall. In the emergency department he was administered IV Zofran and IV Reglan with moderate effect. Patient has a low-grade temperature of 99.6?, blood pressure 183/94, heart rate 98, respiratory rate 16, oxygen saturation of 93% on room air he weighs 81.3 kg with a BMI of 21.8. His WBC is 11.7 RBC 3.75 hemoglobin 11.9 hematocrit 34.6 platelet count 226 he has AE left shift of 10,800, sodium 140, potassium 3.3, chloride 98, bicarb 33, BUN 43, creatinine 1.27 with an EGFR 55.9, glucose is 166, liver enzymes within normal limits, trop onin is currently 0216 up from 2 readings of 0.176, [place] [address], lipase is within normal limits, procalcitonin is 0.17, and COVID 19 PCR is negative. Per the emergency department notes, they consulted with Dr. Kilgore the patient's direct support professional caregiver regarding his elevated troponins, it was not thought at that time that there was any acute process. His 1st 2 troponins were elevated and the same value however his 3rd troponin has increased. Patient History Medical History Acute on chronic HFrEF (heart failure with reduced ejection fraction) Celiac disease Congestive heart failure Diabetes Encounter for insertion of cardiac resynchronization therapy pacemaker Gout History of recurrent UTI (urinary tract infection) Hypertension Intermittent self-catheterization of bladder Kidney stones Neurogenic bladder Neurogenic bladder, flaccid Pacemaker Primary parotid gland malignancy Rectal cancer Urinary calculi Urinary retention Urinary retention UTI (urinary tract infection) Surgical History H/O colectomy H/O parotidectomy Family & Social History Family History Father Diabetes mellitus Sister Diabetes mellitus Brother Diabetes mellitus Social History: household members spouse Prior Living Arrangements House lives independently Yes Safety & Behavioral: Feels Safe in Current Yes Environment Been Physically Hurt or No Threatened By a Person Suicidal Ideation Description None Suicide Plan Description No Plan Tobacco & Substance use: Smoking Status Never smoker alcohol intake current alcohol intake frequency holiday/special occasion Substance Use Type marijuana Meds Home Medications and Allergies Home Medications Medication Instructions Recorded Confirmed Type allopurinol 100 mg tablet 150 mg PO DAILY 10/18/18 12/15/21 History carvedilol 25 mg tablet 25 mg PO BID 10/18/18 12/15/21 History cetirizine 10 mg tablet 10 mg PO DAILY PRN 10/18/18 12/15/21 History fluticasone propionate 50 1 spray INTRANASAL DAILY PRN 10/18/18 12/15/21 History mcg/actuation nasal spray,suspension hydrochlorothiazide 25 mg tablet 25 mg PO DAILY 10/18/18 12/15/21 History lisinopril 20 mg tablet 5 mg PO DAILY 10/18/18 12/15/21 History potassium chloride 10 mEq 10 meq PO BID 10/18/18 12/15/21 History tablet,extended release (K-Tab) rosuvastatin 5 mg tablet 5 mg PO BEDTIME 06/13/19 12/15/21 History methenamine hippurate 1 gram 1 g PO BID #180 tab 04/04/21 12/15/21 Rx tablet (Hiprex) apixaban 5 mg tablet (Eliquis) 10 mg PO DAILY 12/15/21 12/15/21 History ascorbic acid (vitamin C) 500 mg 500 mg PO BID 12/15/21 12/15/21 History capsule cranberry 500 mg capsule 500 mg PO BID 12/15/21 12/15/21 History d-mannose 500 mg capsule 500 mg PO BID 12/15/21 12/15/21 History insulin glargine 100 unit/mL 30 unit SUBCUT BEDTIME 12/15/21 12/15/21 History subcutaneous solution (Lantus U-100 Insulin) oxycodone 5 mg capsule 5 mg PO Q6HR PRN 12/15/21 12/15/21 History Allergies Allergy/AdvReac Type Severity Reaction Status Date / Time fluorouracil Allergy Verified 08/25/21 17:22 caffeine AdvReac sensitivity Verified 08/25/21 17:22 Review of Systems Review of Systems ROS: Yes All systems reviewed with the patient and are negative except as otherwise documented Exam Vital Signs (past 8 hours): - 12/15/21 13:45 12/15/21 14:00 12/15/21 14:15 Temperature Pulse Rate 97 H 96 H 94 H Respiratory Rate 23 21 17 Blood Pressure 157/72 H Pulse Oximetry 94 95 94 12/15/21 14:30 12/15/21 14:45 12/15/21 15:00 Temperature Pulse Rate 94 H 97 H 95 H Respiratory Rate 23 18 17 Blood Pressure 167/83 H 165/92 H Pulse Oximetry 93 94 93 12/15/21 15:15 12/15/21 15:30 12/15/21 15:49 Temperature Pulse Rate 96 H 111 H 110 H Respiratory Rate 20 28 H Blood Pressure 160/81 H 173/81 H Pulse Oximetry 94 96 97 12/15/21 16:00 12/15/21 16:15 12/15/21 18:20 Temperature 98.9 F Pulse Rate 101 H 102 H 107 H Respiratory Rate 17 12 18 Blood Pressure 168/85 H 152/87 H Pulse Oximetry 96 95 97 12/15/21 19:00 12/15/21 19:47 12/15/21 19:59 Temperature 99.6 F Pulse Rate 98 H Respiratory Rate 16 Blood Pressure 183/94 H Pulse Oximetry 95 97 93 Oxygen Delivery Method Room Air Oxygen Flow Rate 0 Narrative Exam Narrative: Gen: Alert, oriented, thin 71 y.o. male, appears mildly anxious HEENT: multiple lesions on scalp areas, atraumatic, conjunctiva clear, sclera non-icteric, oral mucosa pink and moist Neck: supple, full ROM, no JVD, trachea is midline Resp: Lungs CTA, non-labored breathing CV: irrecgularly irregular, no murmur or rubs Abd: soft, non-tender, normoactive BTs Skin: Has superficial bleeding over the bridge of his nose, no lesions or rashes Neuro: Alert and oriented X 4 w/no focal deficits. Speech clear and coherent. Extremities: no edema, poor skin turgor, moves all 4 extremities, is ambulatory, negative Yaz?s sign Psyche: normal mood and affect. Objective Labs Result Diagrams: 12/15/21 11:55 12/15/21 11:55 Labs: Laboratory Results - last 24 hr 12/15/21 12/15/21 12/15/21 11:55 11:55 11:55 WBC 11.7 H RBC 3.75 L Hgb 11.9 L Hct 34.6 L MCV 92.4 MCH 31.7 MCHC 34.2 RDW 17.1 H Plt Count 226 Neut % (Auto) 92.0 H Lymph % (Auto) 2.5 L Otoe % (Auto) 5.3 Eos % (Auto) 0.0 L Baso % (Auto) 0.2 Neut # (Auto) 49598 H Lymph # (Auto) 300 L Otoe # (Auto) 600 Eos # (Auto) 0 Baso # (Auto) 0 PT 19.1 H INR 1.7 H APTT 34 D Sodium 140 Potassium 3.3 L Chloride 98 Carbon Dioxide 33 H BUN 43 H Creatinine 1.27 H Estimated GFR 55.9 L BUN/Creatinine Ratio 33.9 H Glucose 166 H Lactate Calcium 10.1 Total Bilirubin 0.8 AST 25 ALT 16 Alkaline Phosphatase 93 Total Creatine Kinase CK-MB (CK-2) CK-MB (CK-2) Rel Index Troponin I NT-Pro-B Natriuret Pep Total Protein 8.6 H Albumin 4.4 Globulin 4.2 H Albumin/Globulin Ratio 1.0 Lipase 30 Procalcitonin 0.17 SARS-CoV-2 (PCR) 12/15/21 12/15/21 12/15/21 11:55 11:55 14:05 WBC RBC Hgb Hct MCV MCH MCHC RDW Plt Count Neut % (Auto) Lymph % (Auto) Otoe % (Auto) Eos % (Auto) Baso % (Auto) Neut # (Auto) Lymph # (Auto) Otoe # (Auto) Eos # (Auto) Baso # (Auto) PT INR APTT Sodium Potassium Chloride Carbon Dioxide BUN Creatinine Estimated GFR BUN/Creatinine Ratio Glucose Lactate 1.5 Calcium Total Bilirubin AST ALT Alkaline Phosphatase Total Creatine Kinase 69 CK-MB (CK-2) TNP CK-MB (CK-2) Rel Index TNP Troponin I 0.176 H* 0.176 H* NT-Pro-B Natriuret Pep 72261 H Total Protein Albumin Globulin Albumin/Globulin Ratio Lipase Procalcitonin SARS-CoV-2 (PCR) 12/15/21 14:06 WBC RBC Hgb Hct MCV MCH MCHC RDW Plt Count Neut % (Auto) Lymph % (Auto) [place]toe % (Auto) Eos % (Auto) Baso % (Auto) Neut # (Auto) Lymph # (Auto) Otoe # (Auto) Eos # (Auto) Baso # (Auto) PT INR APTT Sodium Potassium Chloride Carbon Dioxide BUN Creatinine Estimated GFR BUN/Creatinine Ratio Glucose Lactate Calcium Total Bilirubin AST ALT Alkaline Phosphatase Total Creatine Kinase CK-MB (CK-2) CK-MB (CK-2) Rel Index Troponin I NT-Pro-B Natriuret Pep Total Protein Albumin Globulin Albumin/Globulin Ratio Lipase Procalcitonin SARS-CoV-2 (PCR) Negative Assessment & Plan Assessment & Plan narrative: Clifford Narayan is admitted to the medicine service for management of immunotherapy related intractable nausea and vomiting, hiccups, likely CHF acute on chronic exacerbation, acute kidney injury with associated type 2 CA. 1. Immunotherapy related intractable nausea and vomiting, acute, present on admission * Patient to receive alternating doses of IV Zofran and metoclopramide * Baclofen 5 mg po tid for hiccups 2. Acute on chronic CHF exacerbation, present on admission * CHADs Vac score of 5 * Patient's last echocardiogram in October indicated a reduced systolic ventricular dysfunction with a 30-35% ejection fraction * He has been taking po carvedilol and is now initiated amlodipine 2.5 mg until his renal function stabilizes * Current raymond inhibitor, lisinopril is held. * Patient is paced * Cardiac telemetry * Troponins have increased and this has been discussed with Cardiology. They would prefer that the patient be medically managed given his overall co morbidities. Keep trending until it peaks. * 1000 ml/fluid restriction and daily weights 3. Acute kidney injury, present on admission * Patient's creatinine was 1.2 setting in the setting of a normal baseline creatinine and normal GFR * Patient was given 500 mL of normal saline in the emergency department * Monitor renal function daily * I have held his hydrochlorothiazide 4. Diabetes type 2 peers to be well controlled with a hemoglobin A1c of 5.3 * Continue home dose of glargine 30 units at bedtime * Low-dose correctional scale * Glucose a.c. and HS and carb controlled diet 5. History of frequent UTIs in at self catheterized patient * UA is pending VTE Prophylaxis: Wells risk score 5 [X} Bilateral SCDs Patient is currently anticoagulated on apixaban. Patient is admitted to the inpatient service due to the severity of disease, risks of further disease progression and this stay is expected to exceed 2 midnights. FEN: IV fluids: NS at 75 ml/hour, diet: carb controlled w/1000 fluid restr iction, labs: CBC, C/BMP, liver enzymes, Mag, PT/INR Consultants None Dispo: hopeful discharge to home Code status: DNR/DNI with limited interventions as discussed with the patient who identifies his , Gurpreet as his surrogate and POA. [X] I have utilized all available immediate resources to obtain, update, or review of the patient's current medications COVID-19 COVID-19 status: Negative Result date/Date tested (Pos, Neg/Pending): 12/15/21 Time Spent With Patient Critical Care time: I spent a total of [] minutes of critical care time on this patient's care today; this time is exclusive of procedural time. Scores CHADS-VASc Congestive heart failure: yes Hypertension: yes Age 75 years or older: no Diabetes mellitus: yes Stroke, TIA, or TE: no Vascular disease: yes Age 65 to 74 years: yes Sex category (female): Male CHADS-VASc Score: 5 Wells' Criteria for PE Clinical signs and symptoms of DVT: No PE is #1 Dx or equally likely: No Heart rate > 100: Yes Immobilization at least 3 days or surg in previous 4 weeks: Yes History of PE or DVT: Yes Hemoptysis: No Malignancy w/Treatment within 6 months or palliative: Yes Wells' PE Score total: 5.5 Quality VTE Deep Vein Thrombosis/Pulmonary Embolism Present on Admission: No MIPS - Admit I confirm the patient?s Advance Care Plan is present, Code status is documented, Surrogate decision maker is in patient?s record [If Yes, STOP here]: Yes MIPS - DC The patient has current or prior documentation of left ventricular ejection fraction (LVEF) less than 40%, or moderate or severely depressed left ventricular systolic function.: Yes A. The patient was prescribed or already taking an Angiotensin-Converting Enzyme (RAYMOND) Inhibitor, or Angiotensin Receptor Jeremias (ARB).: Yes B. The patient was prescribed or already taking a beta-jeremias. [If Yes to Both A & B, STOP here]: Yes
[2021-12-15 21:46] LABS: Troponin I 0.216 ng/mL (0.01-0.034)
[2021-12-15] MEDS: BACLOFEN 10 MG TABLET 5 MG PO (22:39)
[2021-12-15] MEDS: INSULIN GLARGINE 100 UNIT/ML 3ML PEN 30 UNIT SUBCUT (22:40)
[2021-12-15 22:56] LABS: Hemoglobin A1C% w Est Avg Glu 5.3 % (4.0-6.0)
[2021-12-16] VITALS (8 sets, daily range): BP systolic 151–188; BP diastolic 77–92; PULSE 82–86; RESP 16–20; TEMP 36.7–37.7; O2SAT 93–97
[2021-12-16 02:01] LABS: Appearance Urine UA CLEAR; Bilirubin Urine UA NEGATIVE (NEGATIVE); Color Urine UA YELLOW; Glucose Urine UA NEGATIVE (Negative); Ketones Urine UA NEGATIVE (NEGATIVE); Leukocyte Esterase Urine UA 2+ (NEGATIVE); Nitrite Urine UA NEGATIVE (Negative); Occult Blood Urine UA 3+ (Negative); Protein Urine UA 3+ (Negative); Specific Gravity Urine UA 1.025 (1.000-1.035); Urobilinogen Urine UA 0.2 E.U./dL (0.2)
[2021-12-16 02:10] LABS: RBC Urine None Seen (0-5/HPF); WBC Urine 30-100/HPF (0-5/HPF)
[2021-12-16 02:11] LABS: Bacteria Urine Many (>30); Culture Indicated Urine Specimen Cultured
[2021-12-16] MEDS: SODIUM CHLORIDE 0.9% 1,000 ML 75 ML IV (03:09)
[2021-12-16 05:13] LABS: Add Manual Diff / Slide Review NO; Basophils Absolute Auto 0 /uL (0-100); Basophils Percent Auto 0.3 % (0-2); Eosinophils Absolute Auto 0 /uL (0-450); Eosinophils Percent Auto 0.1 % (2-4); Hematocrit 32.2 % (41-53); Lymphocytes Absolute Auto 400 /uL (1100-4500); Lymphocytes Percent Auto 3.5 % (25-40); Mean Corpuscular HGB Conc 34.1 % (30-36); Mean Corpuscular Hemoglobin 31.7 PG (26-34); Mean Corpuscular Volume 92.8 fL (80-100); Monocytes Absolute Auto 800 /uL (0-900); Monocytes Percent Auto 6.8 % (3-14); Neutrophils Absolute Auto 11100 /uL (1500-7000); Neutrophils Percent Auto 89.3 % (50-75); Platelet Count 187 X10^3/uL (150-400); Red Blood Cell Count 3.47 X10^6/uL (4.5-5.9); Red Cell Distribution Width 17.1 % (11.6-14.8); White Blood Cell Count 12.4 X10^3/uL (4.5-11.0)
[2021-12-16 05:23] LABS: Blood Urea Nitrogen 39 mg/dL (9-20); Calcium 9.1 mg/dL (8.4-10.2); Carbon Dioxide 30 mmol/L (22-32); Chloride 103 mmol/L (98-107); Estimated Glomerular Filt Rate > 60.0 mL/min (>60); Glucose 119 mg/dL (80-110); HEMOLYSIS < 15 (0-50); Potassium 2.9 mmol/L (3.4-5.1); Sodium 142 mmol/L (137-145)
[2021-12-16 05:24] LABS: Alanine Aminotransferase 13 IU/L (<50); Albumin 3.5 g/dL (3.5-5.0); Albumin Globulin Ratio 1.2 (1.0-2.8); Alkaline Phosphatase 73 U/L (38-126); Aspartate Aminotransferase 29 IU/L (17-59); Bilirubin Total 0.7 mg/dL (0.2-1.3); Bilirubin Unconjugated 0.6 mg/dL (0.0-1.1); HEMOLYSIS < 15 (0-50); Total Protein 6.5 g/dL (6.3-8.2)
[2021-12-16] MEDS: ONDANSETRON 8 MG in SODIUM CHLORIDE 0.9% 50 ML 216 ML IV (06:37)
[2021-12-16] MEDS: INSULIN LISPRO 100 UNIT/ML 3ML VIAL SUBCUT ×2 (08:31→17:31)
--- NOTE | 2021-12-16 09:10 | CM.DANOTE ---
DCP: Case received, EMR reviewed and met with patient. Introduced self and role. Was able to obtain information regarding his baseline activity level at home prior to hospitalization. DCP assessment completed with information currently available. Patient is a 71 year old male who admitted yesterday afternoon to the care of the hospitalist team. PCP: Dr. Hewitt. Payer: confirmed: [facility] Patient came to the hospital via private vehicle secondary to having increased nausea and vomiting for the past couple of days. Patient is undergoing care at [facility], immunotherapy for parotid cancer. Patient also has cardiac history of a-fib, has a pacemaker, as well as acute CHF. Met with patient in his room. He is alert and oriented. He confirmed that he resides in [place] with his spouse, Diana Quinn. He did state that he still drives, uses no DME. He is eager to speak to Dr. Spencer about his treatments. P: DCP to continue to follow. Patient should be able to go home when he is deemed medically stable. Mony Avery RN/Employment Law Specialist Discharge Planning/Care Management Advanced directive, confirm from FAMILY Start: 12/15/21 16:57 Freq: Q24H Status: Active Protocol: Document 12/15/21 16:57 LUCIAN (Rec: 12/15/21 19:29 LUCINA [id number]) Advance Directive, confirm on record Time 19:29 Person contacted Clifford Narayan Copy received No CM Discharge Assessment Start: 12/16/21 09:09 Freq: Status: Active Protocol: Document 12/16/21 09:09 (Rec: 12/16/21 09:10 [id number]) Discharge Planning Assessment Assigned Cyber Security Manager Mony Avery RN/Employment Law Specialist Advance Directives? Yes Advance Directives on File No History Provided By Patient,Medical Record Prior Living Arrangements House Household Members spouse Type of transporation used prior to Drives own vehicle admit Independent with ADL's Yes Is patient alert and oriented? Yes Caregiver for Another No Barriers to Discharge No Discharge Plan Home Referrals Initiated None needed Whiteboard Updated in Patient Room with Yes name and ext. # of Cyber Security Manager Review Status In Process Next Review Type Continued Stay Review
--- NOTE | 2021-12-16 09:18 | PC.NURSE ---
Addendum entered by Natalie Lugo R.N. 12/16/21 19:08: Late entry: Patient had a few beat run of vtach, aware by note this morning. Patient has been doing well since. Heart rate regular, patient has a pace maker. Addendum entered by Natalie Lugo R.N. 12/16/21 14:57: Patient is talking to Dr. Spencer at this time. He seems to be doing well at this time. Addendum entered by Natalie Lugo R.N. 12/16/21 12:47: Patients troponin levels 0.125, is aware. Original Note: Assess- Patient is alert and oriented x3. He has been having some nausea on/off this morning. He did not tolerate clear liquid diet well. He has dry heaves. Patient also self cathes, his brought him some sterile catheters in. Patient has skin cancer to the top of his head and some parotid gland tumors, one of which is visual on the r.side of his neck. He denies pain, to give patient some reglan now as he is complaining of nausea.
[2021-12-16] MEDS: METOCLOPRAMIDE 10 MG/2 ML INJ IV (09:31)
[2021-12-16] MEDS: APIXABAN 5 MG TABLET 10 MG PO (10:53)
[2021-12-16] MEDS: BACLOFEN 10 MG TABLET 5 MG PO ×3 (10:53→20:25)
[2021-12-16] MEDS: POTASSIUM CHLORIDE 20 MEQ TAB 40 MEQ PO ×2 (10:54→15:25)
[2021-12-16] MEDS: carvediloL 12.5 MG TABLET 25 MG PO ×2 (10:54→20:25)
[2021-12-16] MEDS: AMLODIPINE 5 MG TABLET 2.5 MG PO (10:56)
[2021-12-16 11:49] LABS: Troponin I 0.125 ng/mL (0.01-0.034)
--- NOTE | 2021-12-16 16:21 | DIET.CONS ---
Addendum entered by Brook Lerma 12/17/21 10:46: Pt asleep this am when RD visited, pt felt good at 0530 per nursing, felt he turned a corner then got nauseated, medicated, now sleeping. Pts at bedside for good conversation and education session. Per , pt started chemo/radiation 6mo ago in line with beginning of weight drop, pt worsened in Oct, also in line with significant weight loss during that time. Pt had been enjoying corn pops, GF pancakes, [employer] food, burgers, ham, now not much of anything except occasional Ensure. Pt biggest barrier to PO intake up until last week was lost sense of taste. Pt would like 5-10 bites then state it tastes awful. Some luck with adding maple syrup to foods to byron. Pt perscribed anti-depressant in Nov to spur appetite, helped a little. Pt does have [facility], first visit with them. Educated pts on using sour (lemon juice), salty (salt), and sweet (maple syrup) on foods to increase taste perception and to stay on top of medicating with anti-emetics. Recc they try fresh juicy fruits with cottage cheese or yogurt and heavy cream. Kitchen will continue sending ONS Ensure Clear until pts diet upgraded at which point we will try some of his most accepted foods to spur POs. Original Note: Dietary Consultation Note Admission Date: 12/15/2021 16:08 Assessment: 71y M with parotid gland cancer, celiac disease, and pmhx rectal cancer admitted for N/V x2d. RD visited pt at bedside after ativan administration, pt feeling too nauseated to talk so will try again in morning when pt may have better nausea control. RD keen to understand if pt desires altered texture as RN stated pt does talk differently secondary to parotid tumors. Per chart review pt has significant unintentional weight loss in past 6mo (26%) with the majority being lost in past 3mo (17%). Pt diabetic, however A1c today is 5.3 further indicating malnourished state. Pt assigned clear liquid diet for dinner meal, kitchen will send up Ensure Clear to support pts protein needs if able to take small sips throughout evening. Ht: 193.04 cm Wt: 81.3 kg BMI: 21.8 UBW: 110kg (-26.5% in 6mo of which 17% in past 3mo) Last BM: 12/15/21 (12/15/21 16:34) MNA: 6 Roscoe Score: 20 Diet: 12/15/21 Breakfast Clear Liquid Diet Diet Modifications: Patient is diabetic. please add sugar free liquids Safety Tray needed?: No 12/15/21 11:37 NPO Diet Diet Modifications: NPO Type: Strict Labs: RBC 3.47 X10^6/uL (4.5-5.9) L 12/16/21 04:37 Hgb 11.0 g/dL (13.5-17.5) L 12/16/21 04:37 Hct 32.2 % (41-53) L 12/16/21 04:37 Creatinine 1.00 mg/dL (0.66-1.25) 12/16/21 04:37 Hemoglobin A1c 5.3 % (4.0-6.0) 12/15/21 21:10 Lactate 1.5 mmol/L (0.7-2.1) 12/15/21 11:55 NT-Pro-B Natriuret Pep 60233 pg/mL (<125) H 12/15/21 11:55 Nutrition Diagnosis: Severe Acute on Chronic Protein Calorie Malnutrition r/t active malignancy, N/V, aeb 26% unintentional weight loss in 6mo and 17% of which lost in past 3mo (severe), BMI 21.8 (low for age), pt with active parotid gland cancer. Interventions: 1. Until pt with better nausea control, will send Ensure Clear with meals to support kcal and protein needs. 2. F/U at bedside for Oncology medical nutrition therapy education with strategies for kcal and pro intake to protect against further weight loss. 3. [facility] pt request consult [facility] nutrition visit with oncology RD for active patients of [facility]. EER: 2,400kcals (30kcal/kg per PCM), 100-105g PRO (1.3-1.5g/kg per PCM) Monitoring/Evaluations: f/u Wed am c pt for continued supportive nutrition Electronically Signed by: Brook Lerma 12/16/21 16:21 Clinical Dietitian [address] [id number]
--- NOTE | 2021-12-16 18:49 | P.PN_ITS ---
Subjective Subjective Date Patient Seen: 12/16/21 Interval history: 71-year-old male admitted to the hospital for intractable nausea vomiting following immune modulator therapy for parotid cancer to tolerate diet. Patient reports continued nausea, inability to eat solids, or tolerate a liquid diet because of continuous nausea. He does not feel that the Reglan or a dancer drawn is helpful. Overall he feels poorly. He has questions regarding whether he should continue with his current immunotherapy. Exam Vital Signs (past 8 hours): - 12/16/21 12:00 12/16/21 16:00 Temperature 99.3 F 98.2 F Pulse Rate 86 85 Respiratory Rate 18 20 Blood Pressure 160/90 H 168/88 H Pulse Oximetry 94 95 Oxygen Delivery Method Room Air Oxygen Flow Rate 0 Narrative Exam Narrative: Ill-appearing male lying in bed Resp Other: Lungs decreased breath sounds but clear to auscultation Cardio Other: Cardiac exam: Regular rate rhythm normal S1-S2 GI Other: Abdomen: Soft nontender nondistended Extrem Other: Extremities: No edema Objective Labs Result Diagrams: 12/16/21 04:37 12/16/21 04:37 Labs: Laboratory Results - last 24 hr 12/15/21 12/15/21 12/16/21 21:10 21:10 01:50 WBC RBC Hgb Hct MCV MCH MCHC RDW Plt Count Neut % (Auto) Lymph % (Auto) [place] % (Auto) Eos % (Auto) Baso % (Auto) Neut # (Auto) Lymph # (Auto) [place] # (Auto) Eos # (Auto) Baso # (Auto) Sodium Potassium Chloride Carbon Dioxide BUN Creatinine Estimated GFR BUN/Creatinine Ratio Glucose Hemoglobin A1c 5.3 Calcium Total Bilirubin Conjugated Bilirubin Unconjugated Bilirubin AST ALT Alkaline Phosphatase Troponin I 0.216 H* Total Protein Albumin Globulin Albumin/Globulin Ratio Urine Color Yellow Urine Appearance Clear Urine pH 5.0 Ur Specific [place] 1.025 Urine Protein 3+ H Urine Glucose (UA) Negative Urine Ketones Negative Urine Occult Blood 3+ H Urine Nitrate Negative Urine Bilirubin Negative Urine Urobilinogen 0.2 Ur Leukocyte Esterase 2+ H Urine RBC None seen Urine WBC 30-100/hpf H Urine Bacteria Many (>30) H Ur Culture Indicated? Specimen cultured 12/16/21 12/16/21 12/16/21 04:37 04:37 04:37 WBC 12.4 H RBC 3.47 L Hgb 11.0 L Hct 32.2 L MCV 92.8 MCH 31.7 MCHC 34.1 RDW 17.1 H Plt Count 187 Neut % (Auto) 89.3 H Lymph % (Auto) 3.5 L [place] % (Auto) 6.8 Eos % (Auto) 0.1 L Baso % (Auto) 0.3 Neut # (Auto) 37973 H Lymph # (Auto) 400 L [place] # (Auto) 800 Eos # (Auto) 0 Baso # (Auto) 0 Sodium 142 Potassium 2.9 L Chloride 103 Carbon Dioxide 30 BUN 39 H Creatinine 1.00 Estimated GFR > 60.0 BUN/Creatinine Ratio 39.0 H Glucose 119 H Hemoglobin A1c Calcium 9.1 Total Bilirubin 0.7 Conjugated Bilirubin 0.0 Unconjugated Bilirubin 0.6 AST 29 ALT 13 Alkaline Phosphatase 73 Troponin I Total Protein 6.5 Albumin 3.5 Globulin 3.0 Albumin/Globulin Ratio 1.2 Urine Color Urine Appearance Urine pH Ur Specific [place] Urine Protein Urine Glucose (UA) Urine Ketones Urine Occult Blood Urine Nitrate Urine Bilirubin Urine Urobilinogen Ur Leukocyte Esterase Urine RBC Urine WBC Urine Bacteria Ur Culture Indicated? 12/16/21 10:35 WBC RBC Hgb Hct MCV MCH MCHC RDW Plt Count Neut % (Auto) Lymph % (Auto) [place] % (Auto) Eos % (Auto) Baso % (Auto) Neut # (Auto) Lymph # (Auto) [place] # (Auto) Eos # (Auto) Baso # (Auto) Sodium Potassium Chloride Carbon Dioxide BUN Creatinine Estimated GFR BUN/Creatinine Ratio Glucose Hemoglobin A1c Calcium Total Bilirubin Conjugated Bilirubin Unconjugated Bilirubin AST ALT Alkaline Phosphatase Troponin I 0.125 H* Total Protein Albumin Globulin Albumin/Globulin Ratio Urine Color Urine Appearance Urine pH Ur Specific [place] Urine Protein Urine Glucose (UA) Urine Ketones Urine Occult Blood Urine Nitrate Urine Bilirubin Urine Urobilinogen Ur Leukocyte Esterase Urine RBC Urine WBC Urine Bacteria Ur Culture Indicated? [facility] Medical History Acute on chronic HFrEF (heart failure with reduced ejection fraction) Celiac disease Congestive heart failure Diabetes Encounter for insertion of cardiac resynchronization therapy pacemaker Gout History of recurrent UTI (urinary tract infection) Hypertension Intermittent self-catheterization of bladder Kidney stones Neurogenic bladder Neurogenic bladder, flaccid Pacemaker Primary parotid gland malignancy Rectal cancer Urinary calculi Urinary retention Urinary retention UTI (urinary tract infection) Surgical History H/O colectomy H/O parotidectomy Family History Father Diabetes mellitus Sister Diabetes mellitus Brother Diabetes mellitus Social History household members: spouse lives independently: Yes Smoking Status: Never smoker alcohol intake: current Assessment & Plan Assessment & Plan narrative: Clifford Narayan is admitted to the medicine service for management of immunotherapy related intractable nausea and vomiting, hiccups, likely CHF acute on chronic exacerbation, acute kidney injury with associated type 2 [place]. 1. Immunotherapy related intractable nausea and vomiting, acute, present on admission * Patient to receive alternating doses of IV Zofran and metoclopramide * Will add Ativan to the regimen, will attempt to add Phenergan as well * Baclofen 5 mg po tid for hiccups 2. Acute on chronic CHF exacerbation, present on admission * Patient's last echocardiogram in October indicated a reduced systolic ventricular dysfunction with a 30-35% ejection fraction * He has been taking po carvedilol and is now initiated amlodipine 2.5 mg until his renal function stabilizes * Current yasmine inhibitor, lisinopril is held. * Patient is paced * Cardiac telemetry * Troponins have increased and this has been discussed with Cardiology.? They would prefer that the patient be medically managed given his overall comorbidities. Keep trending until it peaks. * Given persistent nausea and vomiting Will continue gentle IV hydration 3. Acute kidney injury, present on admission * Patient's creatinine was 1.2 setting in the setting of a normal baseline creatinine and normal GFR * Patient was given 500 mL of normal saline in the emergency department, given poor p.o. intake will continue gentle IV hydration * Monitor renal function daily * I have held his hydrochlorothiazide 4. Diabetes type 2 appears to be well controlled with a hemoglobin A1c of 5.3 * Continue home dose of glargine 30 units at bedtime * * Glucose a.c. and HS and carb controlled diet 5. History of frequent UTIs in at self catheterized patient * Urine culture sent for culture Time Spent With Patient Critical Care time: I spent a total of [] minutes of critical care time on this patient's care today; this time is exclusive of procedural time. Quality VTE Deep Vein Thrombosis/Pulmonary Embolism Present on Admission: No
[2021-12-16] MEDS: LACTATED RINGERS 1,000 ML 84 ML IV (19:00)
[2021-12-16] MEDS: ATORVASTATIN 20 MG TABLET 10 MG PO (20:24)
[2021-12-16] MEDS: MELATONIN 3 MG TABLET 6 MG PO (20:25)
[2021-12-16] MEDS: INSULIN GLARGINE 100 UNIT/ML 3ML PEN 30 UNIT SUBCUT (20:26)
[2021-12-16] MEDS: LORazepam 2 MG/ML INJ 1 MG IV (20:30)
[2021-12-16 23:03] LABS: HEMOLYSIS < 15 (0-50); Potassium 3.3 mmol/L (3.4-5.1)
[2021-12-17] VITALS (14 sets, daily range): BP systolic 122–161; BP diastolic 67–95; PULSE 73–92; RESP 16–20; TEMP 36.1–37.3; O2SAT 95–99
[2021-12-17 05:23] LABS: Add Manual Diff / Slide Review NO; Basophils Absolute Auto 0 /uL (0-100); Basophils Percent Auto 0.1 % (0-2); Eosinophils Absolute Auto 0 /uL (0-450); Eosinophils Percent Auto 0.3 % (2-4); Hematocrit 35.4 % (41-53); Lymphocytes Absolute Auto 300 /uL (1100-4500); Lymphocytes Percent Auto 2.6 % (25-40); Mean Corpuscular HGB Conc 33.8 % (30-36); Mean Corpuscular Hemoglobin 31.3 PG (26-34); Mean Corpuscular Volume 92.5 fL (80-100); Monocytes Absolute Auto 1000 /uL (0-900); Monocytes Percent Auto 7.9 % (3-14); Neutrophils Absolute Auto 11600 /uL (1500-7000); Neutrophils Percent Auto 89.1 % (50-75); Platelet Count 205 X10^3/uL (150-400); Red Blood Cell Count 3.83 X10^6/uL (4.5-5.9); Red Cell Distribution Width 16.8 % (11.6-14.8)
[2021-12-17 05:32] LABS: BUN Creatinine Ratio 29.5 (6-22); Blood Urea Nitrogen 31 mg/dL (9-20); Calcium 9.3 mg/dL (8.4-10.2); Carbon Dioxide 36 mmol/L (22-32); Chloride 103 mmol/L (98-107); Estimated Glomerular Filt Rate > 60.0 mL/min (>60); Glucose 76 mg/dL (80-110); HEMOLYSIS < 15 (0-50); Potassium 3.4 mmol/L (3.4-5.1); Sodium 143 mmol/L (137-145)
[2021-12-17] MEDS: APIXABAN 5 MG TABLET 10 MG PO (09:01)
[2021-12-17] MEDS: AMLODIPINE 5 MG TABLET 2.5 MG PO (09:01)
[2021-12-17] MEDS: carvediloL 12.5 MG TABLET 25 MG PO ×2 (09:01→20:47)
[2021-12-17] MEDS: BACLOFEN 10 MG TABLET 5 MG PO ×2 (09:01→20:47)
[2021-12-17] MEDS: PROCHLORPERAZINE 10 MG/2 ML VIAL IV (09:05)
[2021-12-17] MEDS: LACTATED RINGERS 1,000 ML 84 ML IV (09:20)
[2021-12-17] MEDS: POTASSIUM CHLORIDE 20 MEQ TAB 40 MEQ PO (10:20)
--- NOTE | 2021-12-17 13:31 | CM.DPC ---
DCP Cont: Discussed patient during team rounds. He had mentioned to hospitalist, not sure that he wants to continue with the treatments. He will continue to be treated here for the symptoms, and encouraged to have him speak to his oncologist about this at [facility]. P: DCP to continue to follow for any needs. Plan is for patient to go home once he is deemed medically stable. Mony Avery RN/[place]
[2021-12-17] MEDS: LORazepam 2 MG/ML INJ 1 MG IV (15:24)
--- NOTE | 2021-12-17 17:42 | P.PN_ITS ---
Subjective Subjective Date Patient Seen: 12/17/21 Interval history: Nausea vomiting improved. Patient feels somewhat lethargic with the addition of Ativan. He was able to tolerate a clear liquid today diet today. Will advance diet as tolerated. Overall he is making slow but steady progress Exam Vital Signs (past 8 hours): - 12/17/21 11:33 12/17/21 12:00 Temperature 98.9 F Pulse Rate 75 Respiratory Rate 20 Blood Pressure 122/67 Pulse Oximetry 97 97 Oxygen Delivery Method Room Air Oxygen Flow Rate 0 Narrative Exam Narrative: Ill-appearing male lying in bed Chest Other: Port-A-Cath in left chest Resp Other: Lungs: Clear to auscultation Cardio Other: Cardiac exam: Regular rate rhythm normal S1-S2 GI Other: Abdomen soft and nontender Extrem Other: Extremity no edema Objective Labs Result Diagrams: 12/17/21 04:38 12/17/21 04:38 Labs: Laboratory Results - last 24 hr 12/16/21 12/17/21 12/17/21 22:46 04:38 04:38 WBC 13.0 H RBC 3.83 L Hgb 12.0 L Hct 35.4 L MCV 92.5 MCH 31.3 MCHC 33.8 RDW 16.8 H Plt Count 205 Neut % (Auto) 89.1 H Lymph % (Auto) 2.6 L [place] % (Auto) 7.9 Eos % (Auto) 0.3 L Baso % (Auto) 0.1 Neut # (Auto) 00987 H Lymph # (Auto) 300 L [place] # (Auto) 1000 H Eos # (Auto) 0 Baso # (Auto) 0 Sodium 143 Potassium 3.3 L 3.4 Chloride 103 Carbon Dioxide 36 H BUN 31 H Creatinine 1.05 Estimated GFR > 60.0 BUN/Creatinine Ratio 29.5 H Glucose 76 L Calcium 9.3 PFSH Medical History Acute on chronic HFrEF (heart failure with reduced ejection fraction) Celiac disease Congestive heart failure Diabetes Encounter for insertion of cardiac resynchronization therapy pacemaker Gout History of recurrent UTI (urinary tract infection) Hypertension Intermittent self-catheterization of bladder Kidney stones Neurogenic bladder Neurogenic bladder, flaccid Pacemaker Primary parotid gland malignancy Rectal cancer Urinary calculi Urinary retention Urinary retention UTI (urinary tract infection) Surgical History H/O colectomy H/O parotidectomy Family History Father Diabetes mellitus Sister Diabetes mellitus Brother Diabetes mellitus Social History household members: spouse lives independently: Yes Smoking Status: Never smoker alcohol intake: current Assessment & Plan Assessment & Plan narrative: 1. Immunotherapy related intractable nausea and vomiting, acute, present on admission * Patient to receive alternating doses of IV Zofran and metoclopramide * Will add Ativan to the regimen, will attempt to add Phenergan as well * Baclofen 5 mg po tid for hiccups 2. Acute on chronic CHF exacerbation, present on admission * Patient's last echocardiogram in October indicated a reduced systolic ventricular dysfunction with a 30-35% ejection fraction * He has been taking po carvedilol and is now initiated amlodipine 2.5 mg until his renal function stabilizes * Current yasmine inhibitor, lisinopril is held. * Patient is paced * Cardiac telemetry * D/C IVFLUIDS Troponins have increased and this has been discussed with Cardiology.? They would prefer that the patient be medically managed given his overall comorbidities. Keep trending until it peaks. * Given persistent nausea and vomiting Will continue gentle IV hydration3. Acute kidney injury, present on admission * Patient's creatinine was 1.2 setting in the setting of a normal baseline creatinine and normal GFR * Patient was given 500 mL of normal saline in the emergency department, given poor p.o. intake will continue gentle IV hydration * Monitor renal function daily * I have held his hydrochlorothiazide 4. Diabetes type 2 appears to be well controlled with a hemoglobin A1c of 5.3 * Continue home dose of glargine 30 units at bedtime * * Glucose a.c. and HS and carb controlled diet5. History of frequent UTIs in at self catheterized patient * Urine culture sent for culture * Urine growing Gram Negative Baccilli * Will start antibiotics * Time Spent With Patient Critical Care time: I spent a total of [] minutes of critical care time on this patient's care today; this time is exclusive of procedural time. Quality VTE Deep Vein Thrombosis/Pulmonary Embolism Present on Admission: No
[2021-12-17] MEDS: cefTRIAXone 1,000 MG in SODIUM CHLORIDE 0.9% 100 ML 200 ML IV (18:58)
[2021-12-17] MEDS: ATORVASTATIN 20 MG TABLET 10 MG PO (20:47)
[2021-12-17] MEDS: MELATONIN 3 MG TABLET 6 MG PO (20:47)
[2021-12-17] MEDS: INSULIN LISPRO 100 UNIT/ML 3ML VIAL SUBCUT (20:55)
[2021-12-17] MEDS: INSULIN GLARGINE 100 UNIT/ML 3ML PEN 30 UNIT SUBCUT (20:56)
[2021-12-18] VITALS (8 sets, daily range): BP systolic 97–155; BP diastolic 53–87; PULSE 72–82; RESP 18–20; TEMP 36.1–37; O2SAT 97–98
[2021-12-18] MEDS: METOCLOPRAMIDE 10 MG/2 ML INJ IV (04:17)
[2021-12-18] MEDS: PROCHLORPERAZINE 10 MG/2 ML VIAL IV (06:07)
[2021-12-18] MEDS: LORazepam 2 MG/ML INJ 1 MG IV (08:48)
[2021-12-18] MEDS: ONDANSETRON 4 MG/2 ML INJ IV (08:48)
[2021-12-18] MEDS: BACLOFEN 10 MG TABLET 5 MG PO (08:48)
[2021-12-18] MEDS: APIXABAN 5 MG TABLET 10 MG PO (08:49)
[2021-12-18] MEDS: AMLODIPINE 5 MG TABLET 2.5 MG PO (08:50)
[2021-12-18] MEDS: carvediloL 12.5 MG TABLET 25 MG PO (08:50)
[2021-12-18] MEDS: OXYCODONE IR 5 MG TABLET PO (11:12)
[2021-12-18] MEDS: ACETAMINOPHEN 325 MG TABLET 650 MG PO (11:18)
--- NOTE | 2021-12-18 12:47 | PM.DS.1 ---
History of Present Illness History of Present Illness Date Patient Seen: 12/18/21 Time Patient Seen: 12:47 Chief complaint: Nausea/vomiting x2days. dehydrated Narrative: Clifford Narayan is a 71-year-old gentleman currently being undergoing immunotherapy for parotid cancer, diabetes, pacemaker, hypertension, hyperlipidemia, history of a PE on apixaban, celiac disease and a history of rectal cancer presented for intractable nausea and vomiting. He has been going to [facility] and received the second infusion on December 10. Since then, he has had persistent nausea and vomiting as well as hiccups. Per the ED provider, he has cumulatively taken up to 20 mgs of oral zofran with no effect. He also informed the ED provider, he became constipated that was resolved wit an over the counter laxative.? He denies fever, sweats or chills, shortness of breath, chest pain, dysurea, but has chronic urinary retention and self catheterizes, and his constipation is now resolved. He denies swelling of his lower extremities and his exam reflects that. Patient underwent echocardiogram study on October 20 of this year and has moderate to severe reduced systolic function with an EF of 30-35%, apical wall motion abnormality reflecting pacemaker at [place] a stone or ischemia, borderline enlarged right ventricle with mildly reduced function mildly enlarged ascending aorta at 4.1 cm, suspected patent foramen ovale, and a reduction in his EF from an echo done in April of 2021 from 40-45% to 30-35%.? Chest x-ray ordered in the ED today did not identify any acute process but noted a Port-A-Cath in the left chest wall.? In the emergency department he was administered IV Zofran and IV Reglan with moderate effect.? Patient has a low-grade temperature of 99.6?, blood pressure 183/94, heart rate 98, respiratory rate 16, oxygen saturation of 93% on room air he weighs 81.3 kg with a BMI of 21.8.? His WBC is 11.7 RBC 3.75 hemoglobin 11.9 hematocrit 34.6 platelet count 226 he has AE left shift of 10,800, sodium 140, potassium 3.3, chloride 98, bicarb 33, BUN 43, creatinine 1.27 with an EGFR 55.9, glucose is 166, liver enzymes within normal limits, troponin is currently 0216 up from 2 readings of 0.176, [place] [address], lipase is within normal limits, procalcitonin is 0.17, and COVID 19 PCR is negative. Per the emergency department notes, they consulted with Dr. Kilgore the patient's stave and bolt equalizer regarding his elevated troponins, it was not thought at that time that there was any acute process.? His 1st 2 troponins were elevated and the same value however his 3rd troponin has increased. Discharge Providers Provider Date of admission: 12/17/21 13:50 Discharge Date: 12/18/21 Primary care physician: eRmigio Hewitt MD Discharge provider: Tg Spencer MD Summary Hospital Course Discharge Diagnosis: 1. Intractable nausea and vomiting, secondary to recent immunotherapy for parotid cancer 2. Acute on chronic severe protein calorie malnutrition 3. Chronic systolic heart failure, ejection fraction 30-35% 4. History of parotid cancer 5. Type 2 diabetes 6. Urinary retention, patient self catheterizes 7. Hypertension 8. Hyperlipidemia 9. Urinary tract infection, present on admission-secondary to E.Coli Hospital Course: Patient is a 71-year-old male with a history of parotid cancer, undergoing immunotherapy for treatment. He developed significant intractable nausea and vomiting which was unresponsive to Zofran. Patient was admitted to the hospital for evaluation. He was given gentle IV fluids, he was placed on Zofran, Compazine, Ativan for his nausea. He remained nauseated but slowly was able to improved. His diet was slowly advanced and he was able to eat 25% of his meals. Today was the 1st time he was able to sit up in a chair. He had no significant vomiting today. He was able to tolerate the full liquid diet. During admission patient had an elevated troponin. Troponins trended upwards and then decreased accordingly. He had no chest pain. At this was felt to be demand ischemia and not related to myocardial infarction. The patient made slow but steady improvement and was deemed appropriate for discharge. Status at Discharge Cognitive/behavioral status at discharge: oriented Functional status at discharge: uses cane/walker Overall status at discharge: patient is progressing back to baseline Exam Vital Signs (past 8 hours): - 12/18/21 06:07 12/18/21 07:00 12/18/21 07:51 Temperature Pulse Rate 79 Respiratory Rate Blood Pressure 155/87 H 134/76 Pulse Oximetry 98 12/18/21 08:00 12/18/21 08:26 12/18/21 11:45 Temperature 97.9 F 97.7 F Pulse Rate 82 Respiratory Rate 20 Blood Pressure 105/70 Pulse Oximetry 97 98 Oxygen Delivery Method Room Air Oxygen Flow Rate 0 Narrative Exam Narrative: Pleasant male sitting in a chair, ill-appearing Resp Other: Lungs clear to auscultation Cardio Other: Cardiac exam: Regular rate and rhythm normal S1-S2 with a 2/6 systolic ejection murmur GI Other: Abdomen: Soft and nontender Extrem Other: Extremities: No edema Objective Labs Result Diagrams: 12/17/21 04:38 12/17/21 04:38 [facility] Medical History Acute on chronic HFrEF (heart failure with reduced ejection fraction) Celiac disease Congestive heart failure Diabetes Encounter for insertion of cardiac resynchronization therapy pacemaker Gout History of recurrent UTI (urinary tract infection) Hypertension Intermittent self-catheterization of bladder Kidney stones Neurogenic bladder Neurogenic bladder, flaccid Pacemaker Primary parotid gland malignancy Rectal cancer Urinary calculi Urinary retention Urinary retention UTI (urinary tract infection) Surgical History H/O colectomy H/O parotidectomy Family History Father Diabetes mellitus Sister Diabetes mellitus Brother Diabetes mellitus Social History household members: spouse lives independently: Yes Smoking Status: Never smoker alcohol intake: current Discharge Assessment & Plan Assessment and Plan Assessment: 1. Intractable nausea and vomiting, secondary to recent immunotherapy for parotid cancer 2. Acute on chronic severe protein calorie malnutrition 3. Chronic systolic heart failure, ejection fraction 30-35% 4. History of parotid cancer 5. Type 2 diabetes 6. Urinary retention, patient self catheterizes 7. Hypertension 8. Hyperlipidemia 9. Urinary tract infection, present on admission-secondary to E.Coli Plan of Treatment: discharge home F/u with Dr. Hewitt next week Discharge Plan Discharge Plan Patient Disposition: Home Discharge orders & Medications Prescriptions: New melatonin 3 mg Tablet 6 mg PO BEDTIME Qty: 30 0RF amlodipine [Norvasc] 5 mg Tablet 2.5 mg PO DAILY Qty: 30 0RF prochlorperazine 25 mg Suppository 25 mg MI Q6HR PRN (Reason: Nausea) Qty: 14 0RF amoxicillin-pot clavulanate [Augmentin] 500-125 mg tablet 1 tab PO BID Qty: 6 0RF lorazepam [Ativan] 1 mg tablet 1 mg PO TID PRN (Reason: nausea and vomiting) Qty: 10 0RF Continued methenamine hippurate [Hiprex] 1 gram tablet 1 g PO BID Qty: 180 3RF carvedilol 25 mg Tablet 25 mg PO BID 0RF cetirizine 10 mg Tablet 10 mg PO DAILY PRN (Reason: Allergy Symptoms) 0RF lisinopril 20 mg Tablet 5 mg PO DAILY 0RF potassium chloride [K-Tab] 10 mEq Tablet Extended Release 10 meq PO BID 0RF allopurinol 100 mg Tablet 150 mg PO DAILY 0RF hydrochlorothiazide 25 mg Tablet 25 mg PO DAILY 0RF fluticasone propionate 50 mcg/actuation [place],Suspension 1 spray INTRANASAL DAILY PRN (Reason: Allergy Symptoms) 0RF rosuvastatin 5 mg tablet 5 mg PO BEDTIME 0RF Lantus U-100 Insulin 100 unit/mL solution 30 unit SUBCUT BEDTIME 0RF Label Comments: ADMINISTER 30 UNITS UNDER THE SKIN DAILY cranberry 500 mg Capsule 500 mg PO BID 0RF Rx Instructions: administer with meals Eliquis 5 mg tablet 10 mg PO DAILY 0RF ascorbic acid (vitamin C) 500 mg Capsule 500 mg PO BID 0RF d-mannose 500 mg Capsule 500 mg PO BID 0RF oxycodone 5 mg Capsule 5 mg PO Q6HR PRN (Reason: Pain (Scale Score 4-6)) 0RF Follow up/Referrals: Remigio Hewitt MD [Primary Care Provider] - Discharge Health Status Multidrug resistant organism: No MDRO Diet/Activity/Treatments Diet: Diet as Tolerated and Full Liquid Discharge Data Primary Care Provider: Remigio Hewitt Quality VTE Deep Vein Thrombosis/Pulmonary Embolism Present on Admission: No
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
--- NOTE | 2021-12-18 16:03 | PC.NURSE ---
Pt received lying in bed, A&Ox3. He calls appropriately for [facility] to get OOB, requesting to straight cath himself this a.m. and reports hes had some discharge noted brief was wet with uriine and some watery stool on pad. He reports feeling very dizzy with ambulation however BP taken is 130's/60's HR 80's.He straight cath's for 150cc dark yellow urine. He is able to drink some applejuice and eat a popsicle but declines eating breakfast. He reports nausea is much improved after prn ativan and zofran this a.m but declines wanting to eat. He expresses wanting to discharge home, at bedside supportive. MD cleared patient for discharge home with medications. and patient verbalize understanding of medications, activity, and follow up care. He is escorted via wheel chair to private vehicle with at 1515. He has all of his belongings.
== END 2021-12-18 15:15 | disposition home or self-care (01) | DRG 391 ==
LOC: ED 11:48 → AC 16:13
PROVIDERS: Nurse Practitioner Family; Admitting Provider Internal Medicine; Emergency Provider Emergency Medicine; PCP Internal Medicine; Referring Provider Emergency Medicine; Visit Provider Internal Medicine
DX: R11.2 Nausea with vomiting, unspecified (principal); E43 Unspecified severe protein-calorie malnutrition; N17.9 Acute kidney failure, unspecified; N39.0 Urinary tract infection, site not specified; I24.8 Other forms of acute ischemic heart disease; I50.22 Chronic systolic (congestive) heart failure; T45.1X5A Adverse effect of antineoplastic and immunosuppressive drugs, initial encounter; I11.0 Hypertensive heart disease with heart failure; C07 Malignant neoplasm of parotid gland; B96.20 Unspecified Escherichia coli [E. coli] as the cause of diseases classified elsewhere; E11.9 Type 2 diabetes mellitus without complications; R33.9 Retention of urine, unspecified; E78.5 Hyperlipidemia, unspecified; E86.0 Dehydration; Z86.711 Personal history of pulmonary embolism; Z95.0 Presence of cardiac pacemaker; Z79.4 Long term (current) use of insulin; Z68.21 Body mass index [BMI] 21.0-21.9, adult; Z20.822 Contact with and (suspected) exposure to COVID-19; Z79.01 Long term (current) use of anticoagulants; Z86.79 Personal history of other diseases of the circulatory system
CPT/HCPCS: 36415; 71045; 80048; 80053; 80076; 81001; 82550; 82962; 83036; 83605; 83690; 83880; 84132; 84145; 84484; 85025; 85610; 85730; 87040; 87077; 87086; 87186; 87635; 93005; 93010; 94760; 96361; 96374; 99284; C9803; G0378; J0696; J0780; J1815; J2060; J2405; J2765